=== PATIENT | female | born 1955 | race Caucasian/White ===

== ENCOUNTER 2017-03-20 18:11 | Emergency (ER) | payer MEDICAID, OTHER ==
[~2017-03-20] VITALS: Ht 154.9 cm; Wt 66.0 kg
[~2017-03-20 18:11] MED LIST: ALBU0.08 NEB; ALBUAER3 INH; CYCL1TAB29 PO; HYDR-3535 PO; METF500T PO; PROP60TA PO
[2017-03-20 18:21] VITALS: BP 165/74; PULSE 83; RESP 16; TEMP 98.2; O2SAT 97
[2017-03-20 18:24] VITALS: BP 165/74; PULSE 84; RESP 16; O2SAT 97
[2017-03-20] MEDS ORDERED: SODIUM CHLOR 0.9% 1000 ML INJ 1,000 ML IV SCH (18:24)
[2017-03-20] MEDS ORDERED: SODIUM CHLORIDE 0.9% FLUSH 10 ML FLUSH IV FLUSH PRN (18:30)
[2017-03-20] MEDS ORDERED: ONDANSETRON HCL 4 MG/2 ML VIAL IVP ONE (18:30)
[2017-03-20 18:43] LABS: AUTOMATED NEUTROPHIL # 2.5 TH/MM3 (1.8-7.7); BASOPHIL % 0.9 % (0.0-2.0); EOSINOPHIL # 0.1 TH/MM3 (0-0.4); EOSINOPHIL % 1.2 % (0.0-4.0); HEMATOCRIT 36.8 % (35.0-46.0); HEMO FLAGS DIFF FINAL; LYMPH % 40.1 % (9.0-44.0); MEAN CELL VOLUME 89.1 FL (80.0-100.0); MEAN CORPUSCULAR HEMOGLOBIN 28.2 PG (27.0-34.0); MEAN CORPUSCULAR HGB CONC 31.6 % (32.0-36.0); MONO % 8.8 % (0.0-8.0); PLATELET COUNT 306 TH/MM3 (150-450); RED BLOOD COUNT 4.13 MIL/MM3 (4.00-5.30); RED CELL DISTRIBUTION WIDTH 14.7 % (11.6-17.2); WHITE BLOOD COUNT 5.1 TH/MM3 (4.0-11.0)
--- NOTE | 2017-03-20 18:46 | PD ---
HPI Chief Complaint: Fall Time Seen by Provider: 18:38 Travel History International Travel<30 days: No Contact w/Intl Traveler<30days: No Traveled to known affect area: No History of Present Illness HPI 61 YO F with PMH of HTN, chronic pain presents to the ED via EMS for evaluation of left hip pain and left eye pain after mechanical fall at home just before arrival. The patient states that she lost her balance and stuck her face on the doorjamb before falling onto the left hip. She denies LOC. She has been ambulatory since the injury. Complains of chronic back pain, chronic left shoulder pain, no worse today. She takes Lortab daily, last dose "this morning. " States last tetanus immunization was "a few years ago." Denies blood thinners. PFSH Past Medical History Arthritis: Yes Asthma: No Autoimmune Disease: No Anxiety: Yes Depression: No Heart Rhythm Problems: No Cancer: No Cardiovascular Problems: No High Cholesterol: No Chest Pain: No Congestive Heart Failure: No COPD: Yes Diabetes: Yes Patient Takes Glucophage: Yes Diminished Hearing: No Endocrine: Yes Gastrointestinal Disorders: No Genitourinary: No Headaches: Yes Hepatitis: No Hiatal Hernia: No Hypertension: Yes Immune Disorder: No Kidney Stones: No Musculoskeletal: Yes (ARTHRITIS) Neurologic: Yes (MIGRAINES) Psychiatric: Yes (ANXIETY) Reproductive: No Respiratory: Yes (COPD) Migraines: Yes Myocardial Infarction: No Renal Failure: No Sickle Cell Disease: No Sleep Apnea: No Thyroid Disease: No Ulcer: No Influenza Vaccination: Yes ?: Not Menopausal: Yes : 3 Para: 2 Miscarriage: 5 Tubal Ligation: Yes Past Surgical History Abdominal Surgery: No AICD: No Appendectomy: No Body Medical Devices: SCREW RIGHT KNEE Cardiac Surgery: No Cholecystectomy: No Genitourinary Surgery: No Gynecologic Surgery: Yes (TUBAL LIGATION) Insulin Pump: No Joint Replacement: Yes (LEFT KNEE, RIGHT KNEE) Oral Surgery: Yes (NASAL FX SX X 2; SINSUS SX, T & A) Pacemaker: No Tonsillectomy: Yes Other Surgery: Yes Social History Alcohol Use: No Tobacco Use: No Substance Use: No Allergies-Medications (Allergen,Severity, Reaction): Coded Allergies: Aspirin (Verified Allergy, Severe, VOMITING, 03/20/17) Reported Meds & Prescriptions Reported Meds & Active Scripts Active Tramadol (Tramadol HCl) 50 Mg Tab 50 Mg PO Q8H PRN Reported Albuterol Neb (Albuterol Sulfate) 2.5 Mg/3 Ml Neb 2.5 Mg NEB Q4HR NEB While awake Proair Hfa 8.5 GM Inh (Albuterol Sulfate) 90 Mcg/Act Aer 2 Puff INH Q4-6H PRN 108 mcg/actuation Metformin (Metformin HCl) 500 Mg Tab 500 Mg PO BIDPC With meals Flexeril (Cyclobenzaprine HCl) 10 Mg Tab 10 Mg PO TID Lortab (Hydrocodone-Acetaminophen) 10-325 Mg Tab 1 Tab PO Q4H PRN Propranolol (Propranolol HCl) 60 Mg Tab 30 Mg PO Q12HR Review of Systems Except as stated in HPI: all other systems reviewed are Neg Physical Exam Narrative GENERAL: Well-nourished, well-developed white female, sitting upright on a stretcher in no acute distress. SKIN: Warm and dry. There is edema and superficial abrasion over the left eye and eyebrow. Thorough evaluation reveals no edema, ecchymosis, abrasion, or laceration of the skin. HEAD: Normocephalic. Atraumatic. No raccoon eyes or pereira sign. No tenderness to palpation of the skull. No bony step-offs. No malocclusion of the teeth. EYES: No scleral icterus. No injection or drainage. PERRLA. EOMI. ENT: Pearly garrett tympanic membrane is bilaterally. Nasal mucosa is moist. Oropharynx without erythema, edema or exudate. NECK: Supple, trachea midline. No midline tenderness to palpation. Patient retains full, active, painless range of motion of the neck. CARDIOVASCULAR: Regular rate and rhythm without murmurs, gallops, or rubs. 2+ DP and radial pulses bilaterally. RESPIRATORY: Breath sounds clear and equal bilaterally. No accessory muscle use. GASTROINTESTINAL: Abdomen soft, non-tender, nondistended. + Bowel sounds MUSCULOSKELETAL: No cyanosis, or edema. There is a large ecchymosis over the lateral aspect of the left hip. Patient is able to flex the hip. Leg length is equal. No internal rotation of the left leg. Limited range of motion of the bilateral shoulders which patient states is chronic. No tenderness to palpation or limitations to range of motion of the remaining joints of the upper and lower extremities bilaterally. NEUROLOGICAL: Awake and alert. Cranial nerves II through XII intact. Motor and sensory grossly within normal limits. 5/5 muscle strength in all muscle groups. Mildly slurred speech, patients baseline. No pronator drift. BACK: Nontender without obvious deformity. No CVA tenderness. No midline tenderness. Data Data Last Documented VS Vital Signs Date Time Temp Pulse Resp B/P Pulse Ox O2 Delivery O2 Flow Rate FiO2 03/20/17 19:20 83 18 162/70 97 Room Air 03/20/17 18:[address] Brain W/O Iv Contrast(Rout) (03/20/17 18:24) Ct Cerv Spine W/O Contrast (03/20/17 18:24) Ct Facial Bones W/O Iv Cont (03/20/17 18:24) Complete Blood Count With Diff (03/20/17 18:24) Comprehensive Metabolic Panel (03/20/17 18:24) Prothrombin Time / Inr (Pt) (03/20/17 18:24) Act Partial Throm Time (Ptt) (03/20/17 18:24) Urinalysis - C+S If Indicated (03/20/17 18:24) Iv Access Insert/Monitor (03/20/17 18:24) Ecg Monitoring (03/20/17 18:24) Oximetry (03/20/17 18:24) NPO (03/20/17 18:24) Ondansetron Inj (Zofran Inj) (03/20/17 18:30) Sodium Chlor 0.9% 1000 Ml Inj (Ns 1000 M (03/20/17 18:24) Sodium Chloride 0.9% Flush (Ns Flush) (03/20/17 18:30) Alcohol (Ethanol) (03/20/17 18:24) Ct Hip W/O Contrast (03/20/17 ) Hydromorphone Pf Inj (Dilaudid Pf Inj) (03/20/17 20:00) Labs Laboratory Tests Test 03/20/17 18:32 White Blood Count 5.1 TH/MM3 Red Blood Count 4.13 MIL/MM3 Hemoglobin 11.6 GM/DL Hematocrit 36.8 % Mean Corpuscular Volume 89.1 FL Mean Corpuscular Hemoglobin 28.2 PG Mean Corpuscular Hemoglobin 31.6 % Concent Red Cell Distribution Width 14.7 % Platelet Count 306 TH/MM3 Mean Platelet Volume 6.7 FL Neutrophils (%) (Auto) 49.0 % Lymphocytes (%) (Auto) 40.1 % Monocytes (%) (Auto) 8.8 % Eosinophils (%) (Auto) 1.2 % Basophils (%) (Auto) 0.9 % Neutrophils # (Auto) 2.5 TH/MM3 Lymphocytes # (Auto) 2.0 TH/MM3 Monocytes # (Auto) 0.4 TH/MM3 Eosinophils # (Auto) 0.1 TH/MM3 Basophils # (Auto) 0.0 TH/MM3 CBC Comment DIFF FINAL Differential Comment Prothrombin Time 10.0 SEC Prothromb Time International 0.9 RATIO Ratio Activated Partial 28.2 SEC Thromboplast Time Sodium Level 139 MEQ/L Potassium Level 4.0 MEQ/L Chloride Level 105 MEQ/L Carbon Dioxide Level 28.6 MEQ/L Anion Gap 5 MEQ/L Blood Urea Nitrogen 9 MG/DL Creatinine 0.61 MG/DL Estimat Glomerular Filtration 100 ML/MIN Rate Random Glucose 145 MG/DL Calcium Level 8.7 MG/DL Total Bilirubin 0.3 MG/DL Aspartate Amino Transf 26 U/L (AST/SGOT) Alanine Aminotransferase 29 U/L (ALT/SGPT) Alkaline Phosphatase 81 U/L Total Protein 7.2 GM/DL Albumin 3.7 GM/DL Ethyl Alcohol Level LESS THAN 3 MG/DL MDM Medical Decision Making Medical Screen Exam Complete: Yes Emergency Medical Condition: Yes Differential Diagnosis abrasion versus contusion versus facial fracture versus skull fracture versus hip fracture versus ICH versus other Narrative Course 61 YO F with PMH of HTN, chronic pain presents to the ED via EMS for evaluation of left hip pain and left eye pain after mechanical fall at home just before arrival. The patient states that she lost her balance and stuck her face on the doorjamb before falling onto the left hip. She denies LOC. She has been ambulatory since the injury. Complains of chronic back pain, chronic left shoulder pain, no worse today. She takes Lortab daily, last dose "this morning. " States last tetanus immunization was "a few years ago." Denies blood thinners. Vitals reviewed. Positive physical exam findings include edema, ecchymosis and abrasion of the left eyebrow. ++ Tenderness to palpation and large hematoma at the lateral aspect of the left hip. CBC: WBC 5.1, hemoglobin 11.6 CMP: Unremarkable Coags: INR 0.9 ETOH: Less than 3 CT cervical spine: Degenerative changes no acute fracture or subluxation or compression. CT brain: No acute findings in the brain. Maxillofacial CT: Left orbital hematoma and preceptor swelling without fracture. CT left hip: Greater than 11 cm hematoma in the subcutaneous tissues lateral to the proximal left femur. No fracture noted. Patient states she's missed the last 2 doses of pain medication. She was administered 0.5 mg Dilaudid, 4 mg Zofran, 1 L normal saline IV. I discussed the results of the workup with the patient. I provided a short course of tramadol. She is instructed to rest, ice, elevate the extremity, return to normal, gentle activity as tolerated, follow up with her primary care this week. She indicated understanding of the instructions and is agreeable to the care plan. She is table and discharged home. Diagnosis Primary Impression: Traumatic hematoma of left hip Qualified Code: S70.02XA - Traumatic hematoma of left hip, initial encounter Additional Impressions: Contusion of left hip, initial encounter Facial abrasion Qualified Code: S00.81XA - Facial abrasion, initial encounter Contusion of left eyebrow Qualified Code: S00.12XA - Contusion of left eyebrow, initial encounter Referrals: Primary Care Physician Patient Instructions: Abrasion (ED), Contusion in Adults (ED), Facial Contusion (ED), General Instructions Additional Instructions: Rest, hydrate. Return to normal, gentle activities as tolerated. Ice packs, applied 10-15 mins a few times a day may help to relieve pain and swelling. Take pain medications as prescribed. DO NOT DRIVE WHILE TAKING PAIN MEDICATIONS. Follow up with your primary care provider this week. Return to the ED for any urgent or emergent medical condition. Med/Other Pt SpecificInfo: Prescription(s) given Scripts Tramadol 50 Mg Tab50 Mg PO Q8H PRN (PAIN) #6 TAB Ref 0 Prov:Drea Montanez MD 03/20/17 Disposition: 01 DISCHARGE HOME Condition: Stable Robyn Musa Mar 20, 2017 18:46
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
[2017-03-20 18:52] LABS: APTT (PATIENT) 28.2 SEC (24.3-30.1); INTERNATIONAL NORMALIZED RATIO 0.9 RATIO
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
[2017-03-20 19:00] LABS: ANION GAP 5 MEQ/L (5-15); AST (GOT) 26 U/L (15-37); BICARBONATE 28.6 MEQ/L (21.0-32.0); BLOOD UREA NITROGEN 9 MG/DL (7-18); CHLORIDE 105 MEQ/L (98-107); GLOMERULAR FILTRATION RATE 100 ML/MIN (>89); SODIUM (NA) 139 MEQ/L (136-145)
[2017-03-20 19:01] LABS: ALT (GPT) 29 U/L (10-53)
[2017-03-20 19:03] LABS: ALKALINE PHOSPHATASE 81 U/L (45-117); TOTAL BILIRUBIN ADULT 0.3 MG/DL (0.2-1.0)
--- NOTE | 2017-03-20 19:04 | RADRPT ---
EXAM DATE/TIME: 03/20/2017 18:38 [facility] COMPARISON: No previous studies available for comparison. INDICATIONS : Fall today, right sided supraorbital hematoma. RADIATION DOSE: 21.96 CTDIvol (mGy) MEDICAL HISTORY : Chronic obstructive pulmonary disease. nasal fracture SURGICAL HISTORY : Tubal ligation. Tonsillectomy.sinus surgery ENCOUNTER: Initial ACUITY: 1 day PAIN SCORE: 7/10 LOCATION: Right eye TECHNIQUE: Volumetric scanning of the facial bones was performed. Using automated exposure control and adjustme nt of the mA and/or kV according to patient size, radiation dose was kept as low as reasonably achiev able to obtain optimal diagnostic quality images. FINDINGS: There is a left superomedial orbital hematoma measuring 2.1 x 1.5 cm and surrounding soft tissue swel ling. The soft tissue swelling extends to the medial aspect of the orbit, but remains pre-septal. T he retroconal structures are normal in appearance bilaterally. The bony orbit is intact. No fractur es seen in the nasal bone, zygomatic arches, maxilla or mandible. No radiopaque foreign bodies. CONCLUSION: Left superomedial orbital hematoma without evidence of fracture or radiopaque foreign body. Soft tis vidal swelling is preseptal. Tyler Whittington MD on March 20, 2017 at 19:00 Board Certified Radiologist. This report was verified electronically.
--- NOTE | 2017-03-20 19:07 | RADRPT ---
EXAM DATE/TIME: 03/20/2017 18:45 [facility] COMPARISON: No previous studies available for comparison. INDICATIONS : Fall today, hematoma to left hip. RADIATION DOSE: 11.72 CTDIvol (mGy) MEDICAL HISTORY : Chronic obstructive pulmonary disease. diabetes SURGICAL HISTORY : Tubal ligation. bilateral knee replacements. ENCOUNTER: Initial ACUITY: 1 day PAIN SCALE: 8/10 LOCATION: Left hip TECHNIQUE: Volumetric scanning of the hip was performed. Using automated exposure control and adjustment of the mA and/or kV according to patient size, radiation dose was kept as low as reasonably achievable to o btain optimal diagnostic quality images. FINDINGS: There is a large hematoma in the subcutaneous soft tissues lateral to the proximal left femur which m easures 11.6 x 6.9 cm in transverse dimension and 11 cm in superior/inferior dimension. The hematoma does extend posterior and causes indentation upon the lateral margin of the gluteal muscles. No int ramuscular signal hematoma. The osseous structures about the left hip are intact without evidence of fracture. No radiopaque foreign bodies seen. Urinary bladder margins are smooth. No free fluid in the pelvis. Inguinal region is unremarkable.. CONCLUSION: Large (greater than 11 cm) hematoma in the subcutaneous soft tissues lateral to the proximal left fem ur. No evidence of fracture. Tyler Whittington MD on March 20, 2017 at 19:02 Board Certified Radiologist. This report was verified electronically.
[2017-03-20 19:20] VITALS: BP 162/70; PULSE 83; RESP 18; O2SAT 97
[2017-03-20 19:48] VITALS: BP 109/69; PULSE 81; RESP 22; O2SAT 97
[2017-03-20] MEDS ORDERED: HYDROmorphone HCL PF 1 MG/ML VIAL IV PUSH ONE (20:00)
[2017-03-20] MEDS ORDERED: MORPHINE SULFATE 4 MG/ML INJ IV PUSH ONE (20:00)
[2017-03-20] MEDS ORDERED: TRAM50TA PO (20:28)
== END 2017-03-20 21:31 | disposition home or self-care (01) ==
LOC: NEPE 18:11
DX: S70.02XA Contusion of left hip, initial encounter (principal); S00.81XA Abrasion of other part of head, initial encounter; S00.12XA Contusion of left eyelid and periocular area, initial encounter; E11.9 Type 2 diabetes mellitus without complications; I10 Essential (primary) hypertension; W18.39XA Other fall on same level, initial encounter; Z79.84 Long term (current) use of oral hypoglycemic drugs; Z87.39 Personal history of other diseases of the musculoskeletal system and connective tissue; Z86.59 Personal history of other mental and behavioral disorders; Z87.09 Personal history of other diseases of the respiratory system; Z86.69 Personal history of other diseases of the nervous system and sense organs
CPT/HCPCS: 70450; 70486; 72125; 73700; 80053; 80307; 85025; 85610; 85730; 96374; 96375; 99285; J1170; J2405; J7030

== ENCOUNTER 2017-06-28 15:32 | Emergency (ER) | payer OTHER ==
[~2017-06-28] VITALS: Ht 154.9 cm; Wt 67.2 kg
[~2017-06-28 15:32] MED LIST changes: +TRAM50TA PO
[2017-06-28 15:41] VITALS: BP 150/70; PULSE 84; RESP 18; TEMP 98; O2SAT 95
[2017-06-28] MEDS ORDERED: [UNRECOGNIZED DRUG - REMARK] PO (16:00)
[2017-06-28] MEDS ORDERED: ENAL2.5T PO (16:00)
[2017-06-28] MEDS ORDERED: POTA10CA PO (16:00)
[2017-06-28] MEDS ORDERED: OXYC-395 PO (16:00)
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
== END 2017-06-28 17:28 | disposition home or self-care (01) ==
LOC: PHEFT 15:32
DX: S80.12XA Contusion of left lower leg, initial encounter (principal); V03.99XA Pedestrian with other conveyance injured in collision with car, pick-up truck or van, unspecified whether traffic or nontraffic accident, initial encounter; J44.9 Chronic obstructive pulmonary disease, unspecified; E11.9 Type 2 diabetes mellitus without complications; I10 Essential (primary) hypertension
CPT/HCPCS: 73590; 99283

== ENCOUNTER 2017-10-23 11:47 | Emergency (ER) | payer OTHER ==
[~2017-10-23] VITALS: Ht 154.9 cm; Wt 69.0 kg
[~2017-10-23 11:47] MED LIST changes: -ALBU0.08 NEB; -ALBUAER3 INH; +CYCL10TA PO; -CYCL1TAB29 PO; +ENAL2.5T PO; -HYDR-3535 PO; +OXYC-395 PO; +POTA10CA PO; -TRAM50TA PO; +[UNRECOGNIZED DRUG - REMARK] PO
[2017-10-23 11:59] VITALS: BP 163/72; PULSE 70; RESP 18; TEMP 98; O2SAT 98
--- NOTE | 2017-10-23 13:18 | PD ---
HPI Chief Complaint: Pain: Acute or Chronic Time Seen by Provider: 12:55 Travel History International Travel<30 days: No Contact w/Intl Traveler<30days: No Traveled to known affect area: No History of Present Illness HPI 62-year-old female with PMH chronic back pain and right-sided sciatica presents to the ED for evaluation of exacerbation of back pain. Patient states that the pain got worse a few months ago when she had an injection in the back. Despite this worsening pain she had a second injection by Dr. Clark. She endorses pain in the back that radiates into the hip, left groin. She endorses numbness and tingling from the knee down in the same extremity. She denies weakness or giving way, saddle anesthesia, fecal or urinary incontinence. She treated at home with 10 mg oxycodone at around 5 AM. She denies dysuria, hematuria, urinary urgency. PFSH Past Medical History Arthritis: Yes Asthma: No Autoimmune Disease: No Anxiety: Yes Depression: No Heart Rhythm Problems: No Cancer: No Cardiovascular Problems: Yes High Cholesterol: No Chest Pain: No Congestive Heart Failure: No COPD: Yes Diabetes: Yes Patient Takes Glucophage: Yes Diminished Hearing: No Endocrine: Yes Gastrointestinal Disorders: No Genitourinary: No Headaches: Yes Hepatitis: No Hiatal Hernia: No Hypertension: Yes Immune Disorder: No Kidney Stones: No Medical other: No Musculoskeletal: Yes (ARTHRITIS) Neurologic: Yes (MIGRAINES) Psychiatric: Yes (ANXIETY) Reproductive: No Respiratory: Yes (COPD) Immunizations Current: Yes Migraines: Yes Myocardial Infarction: No Renal Failure: No Sickle Cell Disease: No Sleep Apnea: No Thyroid Disease: No Ulcer: No Influenza Vaccination: Yes ?: Not Menopausal: Yes : 3 Para: 2 Miscarriage: 5 Tubal Ligation: Yes Past Surgical History Abdominal Surgery: No AICD: No Appendectomy: No Body Medical Devices: SCREW RIGHT KNEE Cardiac Surgery: No Cholecystectomy: No Genitourinary Surgery: No Gynecologic Surgery: Yes (TUBAL LIGATION) Insulin Pump: No Joint Replacement: Yes (LEFT KNEE, RIGHT KNEE) Oral Surgery: Yes (NASAL FX SX X 2; SINSUS SX, T & A) Pacemaker: No Tonsillectomy: Yes Other Surgery: Yes Social History Alcohol Use: No Tobacco Use: No Substance Use: No Allergies-Medications (Allergen,Severity, Reaction): Coded Allergies: aspirin (Unverified Allergy, Severe, VOMITING, 10/23/17) Reported Meds & Prescriptions Reported Meds & Active Scripts Active Robaxin (Methocarbamol) 500 Mg Tab 1,000 Mg PO TID Reported Enalapril (Enalapril Maleate) 2.5 Mg Tab 2.5 Mg PO DAILY Potassium Chloride ER (Potassium Chloride) 10 Meq Cap 10 Meq PO DAILY Oxycodone (Oxycodone HCl) 10 Mg Tab 10 Mg PO Q8H PRN Metformin (Metformin HCl) 500 Mg Tab 500 Mg PO BIDPC With meals Flexeril (Cyclobenzaprine HCl) 10 Mg Tab 10 Mg PO TID Propranolol (Propranolol HCl) 60 Mg Tab 30 Mg PO Q12HR Review of Systems Except as stated in HPI: all other systems reviewed are Neg Physical Exam Narrative GENERAL: Chronically ill-appearing white female in no acute distress. SKIN: Focused skin assessment warm/dry. HEAD: Normocephalic. EYES: No scleral icterus. No injection or drainage. NECK: Supple, trachea midline. No JVD or lymphadenopathy. CARDIOVASCULAR: Regular rate and rhythm without murmurs, gallops, or rubs. RESPIRATORY: Breath sounds clear and equal bilaterally. No accessory muscle use. GASTROINTESTINAL: Abdomen soft, non-tender, nondistended. Active bowel sounds. MUSCULOSKELETAL: No cyanosis, or edema. Focused right lower extremity exam: 2+ radial pulse. Tender to palpation of the anterior lateral aspect of the hip as well as the groin. 5/5 strength of plantarflexion, dorsiflexion, knee and hip flexion. Knee and hip flexion elicits pain. BACK: Nontender without obvious deformity. Positive right-sided CVA tenderness. No midline tenderness. No tenderness of the sciatic notch. Straight leg raise positive on the right. Data Data Last Documented VS Vital Signs Date Time Temp Pulse Resp B/P (MAP) Pulse Ox O2 Delivery O2 Flow Rate FiO2 10/23/17 11:59 98.0 70 18 163/72 (102) 98 Orders Orders Hip, Uni(Ap&Lat) W Ap Pelvis (10/23/17 12:53) Urinalysis - C+S If Indicated (10/23/17 13:18) Ketorolac Inj (Toradol Inj) (10/23/17 13:30) Orphenadrine Inj (Norflex Inj) (10/23/17 13:30) Acetamin-Hydrocod 325-5 Mg ([place] 5-325 (10/23/17 13:30) Ed Discharge Order (10/23/17 15:32) Labs Laboratory Tests Test 10/23/17 15:00 Urine Collection Type CLEAN CATCH Urine Color YELLOW Urine Turbidity CLEAR Urine pH 5.5 Urine Specific [place] 1.030 Urine Protein NEG mg/dL Urine Glucose (UA) NEG mg/dL Urine Ketones TRACE mg/dL Urine Occult Blood NEG Urine Nitrite NEG Urine Bilirubin NEG Urine Leukocyte Esterase NEG Urine RBC 0-3 /hpf Urine WBC 0-2 /hpf Urine Squamous Epithelial Cells 0-5 /hpf Microscopic Urinalysis Comment CULT NOT INDICATED Urine Collection Time 15:00 [facility] Medical Decision Making Medical Screen Exam Complete: Yes Emergency Medical Condition: Yes Differential Diagnosis Acute on chronic back pain versus muscle spasm versus UTI versus other Narrative Course 62-year-old female with PMH chronic back pain and right-sided sciatica presents to the ED for evaluation of exacerbation of back pain. Patient states that the pain got worse a few months ago when she had an injection in the back. Despite this worsening pain she had a second injection by Dr. Clark. She endorses pain in the back that radiates into the hip, left groin. She endorses numbness and tingling from the knee down in the same extremity. She denies weakness or giving way, saddle anesthesia, fecal or urinary incontinence. She denies dysuria , hematuria, urinary urgency. She treated at home with 10 mg oxycodone at around 5 AM. Vitals reviewed. Physical exam reveals right CVA tenderness, tenderness to palpation of the anterolateral aspect of the right hip and groin. No midline tenderness to palpation of the back. No tenderness to palpation of the sciatic notch. 5/5 strength of dorsi flexion and plantar flexion bilaterally. Patient was registered IM Toradol, Norflex and by mouth Lortab. X -ray of the hip reveals no acute bony injury per radiology read. UA reveals no evidence of UTI. Discussed the results of the workup with the patient. She continues to insist that she cannot stand while she stands in front of me. She requests more pain medications. She wants to know the reason for her hip pain. I explained multiple times that this is likely worsening of her chronic symptoms that need to be evaluated by the neurologist. That her symptoms were worsened by the series of injections that she received. She is provided with the on-call neurologist information. I ultimately prescribed a short course of muscle relaxants to take with her chronic pain medications. We discussed red flag symptoms and reasons to return to the ED. She indicated understanding of the instructions. The patient is stable and discharged home. Diagnosis Primary Impression: Acute exacerbation of chronic low back pain Additional Impression: Chronic right hip pain Referrals: Kaylan Meraz MD Pain Management Patient Instructions: Chronic Back Pain (ED), General Instructions, Sciatica ( ED) Additional Instructions: Rest, hydrate. Return to normal, gentle activities as tolerated. Take muscle relaxants as they're prescribed. These medications may make you drowsy. Follow-up with your pain management provider or the neurologist whose name is on this discharge paper. Return to the ED for worsening symptoms or any urgent or emergent medical condition. Scripts Methocarbamol (Robaxin) 500 Mg Tab 1000 MG PO TID for Muscle Spasm, #15 TAB 0 Refills Prov: Mila Pleitez MD 10/23/17 Disposition: 01 DISCHARGE HOME Condition: Stable Robyn Musa Oct 23, 2017 13:18
[2017-10-23] MEDS ORDERED: ORPHENADRINE INJ 60 MG/2 ML AMP IM ONE (13:30)
[2017-10-23] MEDS ORDERED: ACETAMINOPHEN/HYDROcodone 325 MG/5 MG TAB PO ONE (13:30)
[2017-10-23] MEDS ORDERED: KETOROLAC TROMETHAMINE 30 MG/ML (IVP) VIAL IV PUSH ONE (13:30)
--- NOTE | 2017-10-23 14:36 | RADRPT ---
EXAM DATE/TIME: 10/23/2017 13:58 [facility] COMPARISON: FEMUR RIGHT (AP & LAT/2VWS), September 21, 2016, 22:53. HIP RIGHT (AP&LAT 2/3VWS) W AP PELVIS, [facility] 2015, 22:46. INDICATIONS : Right hip area pain for 1 month, no known injury MEDICAL HISTORY : SURGICAL HISTORY : Total knee replacement, left. Total knee replacement, right. ENCOUNTER: Initial ACUITY: 1 month PAIN SCORE: 10/10 LOCATION: Right hip FINDINGS: Examination of the right hip was performed with AP Pelvis. The primary and secondary trabecular dolores paula of the femoral neck is intact. The hip joint is of normal width without significant sclerosis or bony hypertrophy. The acetabulum is grossly intact. There is mild osteopenia. CONCLUSION: Stable appearance with mild osteopenia and underlying bony abnormality. Isrrael Manzo MD on October 23, 2017 at 14:32 Board Certified Radiologist. This report was verified electronically.
[2017-10-23 15:11] LABS: BILIRUBIN, URINE NEG (NEG); BLOOD, URINE NEG (NEG); GLUCOSE,URINE NEG (NEG); KETONE, URINE TRACE mg/dL (NEG); NITRITE,URINE NEG (NEG); PH, URINE 5.5 (5.0-8.5); URINE LEUKOCYTE ESTERASE NEG (NEG)
[2017-10-23 15:15] LABS: URINE COLOR YELLOW (YELLW/STRAW)
[2017-10-23 15:17] LABS: RBC, URINE 0-3 /hpf (0-3); SQUAMOUS EPITHELIAL CELL URINE 0-5 /hpf (0-5); WBC, URINE 0-2 /hpf (0-5)
[2017-10-23] MEDS ORDERED: ROBA500T PO (15:32)
== END 2017-10-23 15:47 | disposition home or self-care (01) ==
LOC: PHEFT 11:47
DX: M54.41 Lumbago with sciatica, right side (principal); G89.29 Other chronic pain; M25.551 Pain in right hip; M19.90 Unspecified osteoarthritis, unspecified site; E11.9 Type 2 diabetes mellitus without complications; J44.9 Chronic obstructive pulmonary disease, unspecified; I10 Essential (primary) hypertension
CPT/HCPCS: 73502; 81001; 96372; 96374; 99284; J1885; J2360

== ENCOUNTER 2017-10-23 21:42 | Observation (INO) | payer OTHER ==
[~2017-10-23] VITALS: Ht 154.9 cm; Wt 70.4 kg
[~2017-10-23 21:42] MED LIST changes: +ROBA500T PO
[2017-10-23 21:51] VITALS: BP 131/74; PULSE 75; RESP 20; TEMP 97.9; O2SAT 95
[2017-10-23] MEDS ORDERED: SODIUM CHLOR 0.9% 1000 ML INJ 1,000 ML IV SCH (23:30)
[2017-10-23] MEDS ORDERED: HYDROmorphone HCL PF 2 MG/ML VIAL IV PUSH ONE (23:30)
[2017-10-23] MEDS ORDERED: ONDANSETRON HCL 4 MG/2 ML VIAL IV ONE (23:30)
--- NOTE | 2017-10-23 23:33 | PD ---
HPI Chief Complaint: Musculoskeletal Complaint Time Seen by Provider: 23:21 Travel History International Travel<30 days: No Contact w/Intl Traveler<30days: No Traveled to known affect area: No History of Present Illness HPI The patient is a 62-year-old female with a history of chronic low back pain who complains of pain on the right lower lumbar area with radiation of pain to the right ankle. This is been going on for week. The patient states she cannot walk and she states she needs to be admitted. She was seen earlier today, only a few hours ago, and she returns stating she needs to be admitted. The patient does live alone. She is currently on oxycodone 10 mg every 8 hours given to her by her pain management doctor, Dr. Clark. She states she is also on Flexeril but states done of her medicines are working. The patient states she has claustrophobia and cannot do a lay down MRI. She states she can do a CT scan. PFSH Past Medical History Arthritis: Yes Asthma: No Autoimmune Disease: No Anxiety: Yes Depression: No Heart Rhythm Problems: No Cancer: No Cardiovascular Problems: Yes High Cholesterol: No Chest Pain: No Congestive Heart Failure: No COPD: Yes Diabetes: Yes Patient Takes Glucophage: Yes (last taken today 6pm) Diminished Hearing: No Endocrine: Yes Gastrointestinal Disorders: No Genitourinary: No Headaches: Yes Hepatitis: No Hiatal Hernia: No Hypertension: Yes Immune Disorder: No Kidney Stones: No Musculoskeletal: Yes (ARTHRITIS) Neurologic: Yes (MIGRAINES) Psychiatric: Yes (ANXIETY) Reproductive: No Respiratory: Yes (COPD) Immunizations Current: Yes Migraines: Yes Myocardial Infarction: No Renal Failure: No Sickle Cell Disease: No Sleep Apnea: No Thyroid Disease: No Ulcer: No Tetanus Vaccination: Never Vaccinated ?: Not Menopausal: Yes : 3 Para: 2 Miscarriage: 5 Tubal Ligation: Yes Past Surgical History Abdominal Surgery: No AICD: No Appendectomy: No Body Medical Devices: SCREW RIGHT KNEE Cardiac Surgery: No Cholecystectomy: No Genitourinary Surgery: No Gynecologic Surgery: Yes (TUBAL LIGATION) Insulin Pump: No Joint Replacement: Yes (LEFT KNEE, RIGHT KNEE) Oral Surgery: Yes (NASAL FX SX X 2; SINSUS SX, T & A) Pacemaker: No Tonsillectomy: Yes Other Surgery: Yes Social History Alcohol Use: No Tobacco Use: No Substance Use: No Allergies-Medications (Allergen,Severity, Reaction): Coded Allergies: aspirin (Unverified Allergy, Severe, VOMITING, 10/23/17) Reported Meds & Prescriptions Reported Meds & Active Scripts Active Robaxin (Methocarbamol) 500 Mg Tab 1,000 Mg PO TID Reported Enalapril (Enalapril Maleate) 2.5 Mg Tab 2.5 Mg PO DAILY Potassium Chloride ER (Potassium Chloride) 10 Meq Cap 10 Meq PO DAILY Oxycodone (Oxycodone HCl) 10 Mg Tab 10 Mg PO Q8H PRN Metformin (Metformin HCl) 500 Mg Tab 500 Mg PO BIDPC With meals Flexeril (Cyclobenzaprine HCl) 10 Mg Tab 10 Mg PO TID Propranolol (Propranolol HCl) 60 Mg Tab 30 Mg PO Q12HR Review of Systems Except as stated in HPI: all other systems reviewed are Neg Physical Exam Narrative GENERAL: The patient is alert, oriented 3 in moderate apparent distress with her low back pain. Her vital signs are normal. SKIN: Focused skin assessment warm/dry. HEAD: Atraumatic. Normocephalic. EYES: Pupils equal and round. No scleral icterus. No injection or drainage. ENT: No nasal bleeding or discharge. Mucous membranes pink and moist. NECK: Trachea midline. No JVD. CARDIOVASCULAR: Regular rate and rhythm. No murmur appreciated. RESPIRATORY: No accessory muscle use. Clear to auscultation. Breath sounds equal bilaterally. GASTROINTESTINAL: Abdomen soft, non-tender, nondistended. Hepatic and splenic margins not palpable. MUSCULOSKELETAL: No obvious deformities. No clubbing. No cyanosis. No edema. Reflexes are 0 bilaterally both patella and +2 bilaterally both Achilles. Pinprick is slightly decreased on the right lower leg. I can completely reproduce the patient's pain by pressing to the right of the lumbar spine around the L5-S1 area. NEUROLOGICAL: Awake and alert. No obvious cranial nerve deficits. Motor grossly within normal limits. Normal speech. PSYCHIATRIC: Appropriate mood and affect; insight and judgment normal. Data Data Last Documented VS Vital Signs Date Time Temp Pulse Resp B/P (MAP) Pulse Ox O2 Delivery O2 Flow Rate FiO2 10/23/17 21:51 97.9 75 20 131/74 (93) 95 Orders Orders Ondansetron Inj (Zofran Inj) (10/23/17 23:30) Hydromorphone Pf Inj (Dilaudid Pf Inj) (10/23/17 23:30) Sodium Chlor 0.9% 1000 Ml Inj (Ns 1000 M (10/23/17 23:30) Ct Lumb Spine W/O Contrast (10/23/17 23:33) Bedside Glucose BHUMI.CSUGAR (10/23/17 23:43) Blood Glucose Goal (Criteria) (10/23/17 23:43) Hypoglycemia 70 Mg/Dl Or < (10/23/17 23:43) Notify Dr: Other (10/23/17 23:43) Dextrose 50% In [place] (Vial) Inj (D50w (Vi (10/23/17 23:45) Glucagon Inj (Glucagon Inj) (10/23/17 23:45) Insulin Aspart Supplemtl Scale (Novolog (10/24/17 08:00) Place In Observation (10/23/17 ) Vital Signs (Adult) Q4H (10/23/17 23:43) Activity Oob With Assistance (10/23/17 23:43) Diet 1800 Ada Cons Carb (10/24/17 Breakfast) Sodium Chloride 0.9% Flush (Ns Flush) (10/23/17 23:45) Sodium Chloride 0.9% Flush (Ns Flush) (10/24/17 09:00) Ondansetron Inj (Zofran Inj) (10/23/17 23:45) Comprehensive Metabolic Panel (10/24/17 06:00) Complete Blood Count With Diff (10/24/17 06:00) Pt Request For Service (10/23/17 23:43) Case Management Consult (10/23/17 23:43) Heparin Inj (Heparin Inj) (10/24/17 09:00) Acetaminophen (Tylenol) (10/23/17 23:45) Morphine Inj (Morphine Inj) (10/23/17 23:45) Docusate Sodium-Senna (Melania-Colace) (10/24/17 09:00) Magnesium Hydroxide Liq (Milk Of Magnesi (10/23/17 23:45) Sennosides (Senokot) (10/23/17 23:45) Bisacodyl Supp (Dulcolax Supp) (10/23/17 23:45) Lactulose Liq (Lactulose Liq) (10/23/17 23:45) Enalapril (Vasotec) (10/24/17 09:00) Metformin (Glucophage) (10/24/17 09:00) Methocarbamol (Robaxin) (10/24/17 09:00) Oxycodone (Roxicodone) (10/23/17 23:45) Oxycodone (Roxicodone) (10/23/17 23:45) Propranolol (Inderal) (10/24/17 09:00) Admit Order (Ed Use Only) (10/24/17 00:08) MDM Medical Decision Making Medical Screen Exam Complete: Yes Emergency Medical Condition: Yes Medical Record Reviewed: Yes Differential Diagnosis Chronic low back pain, sciatic nerve pain, herniated nucleus pulposus Narrative Course I tried to get the patient walk but she could not walk and had difficulty even standing. She says she cannot make it at home. This is her second visit today and she says she'll come right back up she is discharged. Plan: The patient will be 23 hour observation for intractable back pain and inability to ambulate. Diagnosis Primary Impression: Intractable low back pain Admitting Information Admitting Physician Requests: Observation Marcos Burrell MD Oct 23, 2017 23:33
[2017-10-23] MEDS ORDERED: ONDANSETRON HCL 4 MG/2 ML VIAL IVP PRN (23:45)
[2017-10-23] MEDS ORDERED: LACTULOSE SYRUP 20 GM/30 ML CUP PO PRN (23:45)
[2017-10-23] MEDS ORDERED: MAGNESIUM HYDROXIDE SUSP 30 ML CUP PO PRN (23:45)
[2017-10-23] MEDS ORDERED: GLUCAGON 1 MG/ML VIAL OTHER PRN (23:45)
[2017-10-23] MEDS ORDERED: BISACODYL 10 MG SUPP RECTAL PRN (23:45)
[2017-10-23] MEDS ORDERED: SENNOSIDES 8.6 MG TAB PO PRN (23:45)
[2017-10-23] MEDS ORDERED: ACETAMINOPHEN 325 MG TAB PO PRN (23:45)
[2017-10-23] MEDS ORDERED: DEXTROSE 50% IN WATER 50 ML VIAL(D50) IV PUSH PRN (23:45)
[2017-10-23] MEDS ORDERED: SODIUM CHLORIDE 0.9% FLUSH 10 ML FLUSH IV FLUSH PRN (23:45)
[2017-10-24] VITALS (8 sets, daily range): BP systolic 121–159; BP diastolic 65–93; PULSE 60–86; RESP 16–20; TEMP 96–98.1; O2SAT 93–97
--- NOTE | 2017-10-24 00:25 | RADRPT ---
EXAM DATE/TIME: 10/23/2017 23:44 [facility] COMPARISON: No previous studies available for comparison. INDICATIONS : Right lower back pain radiating down right leg. RADIATION DOSE: 39.48 CTDIvol (mGy) MEDICAL HISTORY : Hypertension. Diabetes mellitus type 2. SURGICAL HISTORY : Tubal ligation. ENCOUNTER: Initial ACUITY: 1 week PAIN SCALE: 10/10 LOCATION: Right lower back TECHNIQUE: Volumetric scanning of the lumbar spine was performed. Multiplanar reconstructions in the sagittal, coronal and oblique axial planes were performed. Using automated exposure control and adjustment of the mA and/or kV according to patient size, radiation dose was kept as low as reasonably achievable t o obtain optimal diagnostic quality images. DICOM format image data is available electronically for review and comparison. FINDINGS: VERTEBRAE: Normal vertebral body height. ALIGNMENT: There is minimal anterior subluxation of L4 on L5 and L5 on S1. T12-L1: The thecal sac has a normal diameter. No evidence of disc bulge or protrusion. The neural foramina are patent bilaterally. L1-L2: There is minimal diffuse disc bulge without significant stenosis. The thecal sac has a normal diamete r. The neural foramina are patent bilaterally. L2-L3: There is mild diffuse disc bulge without significant stenosis. The thecal sac has a normal diameter. The neural foramina are patent bilaterally. L3-L4: The disc demonstrates mild decrease height. There is minimal bulge without significant stenosis. The thecal sac has a normal diameter. The neural foramina are patent bilaterally. L4-L5: The disc demonstrates decreased height. There is a vacuum phenomenon. Again noted is the anterior sub luxation of L4 on L5. There is a bulging disc appearance secondary to spondylolisthesis. In addition, there appears to be more focal central to right-sided disc protrusion. There is facet and ligament f lavum hypertrophy. The disc and facet changes lead to moderate to severe narrowing of the thecal sac with the thecal sac narrowed to 0.8 cm in transverse dimension 0.7 cm in AP dimension. There is narro wing of the right neural foramina. The left neural foramina is patent. L5-S1: The disc demonstrates decreased height. There is a vacuum phenomenon. There is slight bulging without significant stenosis. There is severe facet hypertrophy. The neural foramina are patent bilaterally. . CONCLUSION: 1. Moderate to severe stenosis at the L4 and L5 multiple secondary to spondylolisthesis and diffuse d isc bulge and a central to right-sided disc protrusion. There is also right neural foraminal narrowin g at this level. 2. Disc decrease height and minimal bulging at the L5-S1 level. 3. Mild bulging at the L1-L2 through L3-L4 levels without significant stenosis. Emir Christopher MD on October 24, 2017 at 0:16 Board Certified Radiologist. This report was verified electronically.
[2017-10-24] MEDS: MORPHINE SULFATE 2 MG/ML INJ IV PUSH PRN ×3 (02:50→09:58)
[2017-10-24 06:24] LABS: BASOPHIL % 0.4 % (0.0-2.0); EOSINOPHIL # 0.1 TH/MM3 (0-0.4); EOSINOPHIL % 2.1 % (0.0-4.0); HEMATOCRIT 36.9 % (35.0-46.0); LYMPH % 30.9 % (9.0-44.0); LYMPHOCYTE # 1.6 TH/MM3 (1.0-4.8); MEAN CELL VOLUME 87.5 FL (80.0-100.0); MEAN CORPUSCULAR HEMOGLOBIN 28.4 PG (27.0-34.0); MEAN CORPUSCULAR HGB CONC 32.5 % (32.0-36.0); MEAN PLATELET VOLUME 6.7 FL (7.0-11.0); MONO % 10.4 % (0.0-8.0); MONOCYTE # 0.5 TH/MM3 (0-0.9); NEUT % 56.2 % (16.0-70.0); PLATELET COUNT 300 TH/MM3 (150-450); RED BLOOD COUNT 4.21 MIL/MM3 (4.00-5.30); RED CELL DISTRIBUTION WIDTH 12.3 % (11.6-17.2); WHITE BLOOD COUNT 5.2 TH/MM3 (4.0-11.0)
[2017-10-24 06:33] LABS: CHLORIDE 104 MEQ/L (98-107); SODIUM (NA) 138 MEQ/L (136-145)
[2017-10-24 06:36] LABS: CALCIUM 8.5 MG/DL (8.5-10.1)
[2017-10-24 06:37] LABS: ALBUMIN 3.3 GM/DL (3.4-5.0); BICARBONATE 28.9 MEQ/L (21.0-32.0); BLOOD UREA NITROGEN 14 MG/DL (7-18); GLUCOSE,RANDOM 119 MG/DL (74-106)
[2017-10-24 06:40] LABS: ALT (GPT) 33 U/L (10-53); AST (GOT) 31 U/L (15-37); CREATININE 0.59 MG/DL (0.50-1.00); GLOMERULAR FILTRATION RATE 104 ML/MIN (>89)
[2017-10-24 06:41] LABS: TOTAL BILIRUBIN ADULT 0.3 MG/DL (0.2-1.0); TOTAL PROTEIN 6.7 GM/DL (6.4-8.2)
[2017-10-24 06:43] LABS: ALKALINE PHOSPHATASE 83 U/L (45-117)
[2017-10-24] MEDS: INSULIN ASPART SUPPLEMENTAL SCALE SQ SCH ×4 (07:59→20:59)
[2017-10-24] MEDS ORDERED: PROPRANOLOL PO SCH (09:00)
[2017-10-24] MEDS: SODIUM CHLORIDE 0.9% FLUSH 10 ML FLUSH IV FLUSH SCH ×2 (09:57→20:58)
[2017-10-24] MEDS: metFORMIN HCL 500 MG TAB PO SCH ×2 (09:58→18:13)
[2017-10-24] MEDS: HEPARIN SODIUM - SQ 10,000 UNITS/ML VIAL SQ SCH ×2 (09:58→20:58)
[2017-10-24] MEDS: METHOCARBAMOL 500 MG TAB PO SCH ×3 (09:59→18:13)
[2017-10-24] MEDS: DOCUSATE SODIUM 50 MG/SENNA 8.6 MG TAB PO SCH ×2 (09:59→21:00)
[2017-10-24] MEDS: PROPRANOLOL HCL 10 MG TAB PO SCH ×2 (09:59→21:00)
[2017-10-24] MEDS: ENALAPRIL MALEATE 2.5 MG TAB PO SCH (09:59)
--- NOTE | 2017-10-24 11:44 | HHI.HP ---
[facility] Service [facility] Primary Care Physician Ramiro Clark MD Admission Diagnosis intractable back pain with inability to ambulate Diagnoses: Chief Complaint: Right lower back pain radiating to the right leg Travel History International Travel<30 Days: No Contact w/Intl Traveler <30 Da: No Traveled to Known Affected Are: No History of Present Illness This is a 62-year-old female past medical history for COPD, diabetes, hypertension, and chronic lower back pain who presented with worsening of her lower back pain. Patient has a pain management physician due to her chronic lower back pain. She stated that about one month ago her lower back pain worsened described more on the right side radiating down the right side. The radiating pain sounds more like a pins and needles but her pain below her knees more for numbness. Patient then saw her pain management physician who gave her steroid injection in which she stated worsen her pain. Patient stated that she was given oxycodone which she takes chronically and also multiple muscle relaxants. Patient stated that pain has not improved and worsened over the past couple days where she can not ambulate so she went to the emergency department twice due to the symptoms. Patient denies any lower extremity weakness. She denies any fecal or urinary incontinence. At baseline patient uses a walker at home and a scooter. All other review system reviewed and negative. Past Family Social History Past Medical History COPD Type 2 diabetes Hypertension Past Surgical History Bilateral knee surgery Bilateral ankle surgery Neurosurgery Sinus surgery Reported Medications Reported Meds & Active Scripts Active Robaxin (Methocarbamol) 500 Mg Tab 1,000 Mg PO TID Reported Enalapril (Enalapril Maleate) 2.5 Mg Tab 2.5 Mg PO DAILY Potassium Chloride ER (Potassium Chloride) 10 Meq Cap 10 Meq PO DAILY Oxycodone (Oxycodone HCl) 10 Mg Tab 10 Mg PO Q8H PRN Metformin (Metformin HCl) 500 Mg Tab 500 Mg PO BIDPC With meals Flexeril (Cyclobenzaprine HCl) 10 Mg Tab 10 Mg PO TID Propranolol (Propranolol HCl) 60 Mg Tab 30 Mg PO Q12HR Allergies: Coded Allergies: aspirin (Unverified Allergy, Severe, VOMITING, 10/23/17) Active Ordered Medications Current Medications Ondansetron HCl (Zofran Inj) 4 mg ONCE ONCE IV Last administered on 10/23/17at 23:30; Start 10/23/17 at 23:30; Stop 10/23/17 at 23:31; Status DC Hydromorphone HCl (Dilaudid Pf Inj) 0.5 mg ONCE ONCE IV PUSH Last administered on 10/23/17at 23:30; Start 10/23/17 at 23:30; Stop 10/23/17 at 23:31 ; Status DC Sodium Chloride 1,000 ml @ 2,000 mls/hr Q30M IV Last administered on at 00:03; Start 10/23/17 at 23:30; Stop 10/23/17 at 23:59; Status DC Dextrose (D50w (Vial) Inj) 50 ml UNSCH PRN IV PUSH HYPOGLYCEMIA-SEE COMMENTS; Start 10/23/17 at 23:45 Glucagon (Glucagon Inj) 1 mg UNSCH PRN OTHER HYPOGLYCEMIA-SEE COMMENTS; Start 10/23/17 at 23:45 Insulin Aspart (NovoLOG SUPPLEMENTAL SCALE) 1 ACHS SLIDING SCALE SQ ; Start at 08:00 Sodium Chloride (NS Flush) 2 ml UNSCH PRN IV FLUSH FLUSH AFTER USING IV ACCESS ; Start 10/23/17 at 23:45 Sodium Chloride (NS Flush) 2 ml BID IV FLUSH Last administered on 10/24/17at 09: 57; Start 10/24/17 at 09:00 Ondansetron HCl (Zofran Inj) 4 mg Q6H PRN IVP NAUSEA OR VOMITING Last administered on 10/24/17at 06:26; Start 10/23/17 at 23:45 Heparin Sodium (Porcine) (Heparin Inj) 5,000 units Q12H SQ Last administered on 10/24/17at 09:58; Start 10/24/17 at 09:00 Acetaminophen (Tylenol) 650 mg Q6H PRN PO FEVER/PAIN SCALE 1 TO 2; Start at 23:45 Morphine Sulfate (Morphine Inj) 2 mg Q3H PRN IV PUSH Pain 6-10 Last administered on 10/24/17at 09:58; Start 10/23/17 at 23:45; Stop 10/24/17 at 11:16 ; Status DC Senna/Docusate Sodium (Melania-Colace) 1 tab BID PO Last administered on at 09:59; Start 10/24/17 at 09:00 Magnesium Hydroxide (Milk Of Magnesia Liq) 30 ml Q12H PRN PO Mild constipation ; Start 10/23/17 at 23:45 Sennosides (Senokot) 17.2 mg Q12H PRN PO Moderate constipation; Start 10/23/17 at 23:45 Bisacodyl (Dulcolax Supp) 10 mg DAILY PRN RECTAL SEVERE CONSITIPATION; Start at 23:45 Lactulose (Lactulose Liq) 30 ml DAILY PRN PO SEVERE CONSITIPATION; Start at 23:45 Enalapril Maleate (Vasotec) 2.5 mg DAILY PO Last administered on 10/24/17at 09: 59; Start 10/24/17 at 09:00 Metformin HCl (Glucophage) 500 mg BIDPC PO Last administered on 10/24/17at 09:58 ; Start 10/24/17 at 09:00 Methocarbamol (Robaxin) 1,000 mg TID PO Last administered on 10/24/17at 09:59; Start 10/24/17 at 09:00 Oxycodone HCl (Roxicodone) 10 mg Q8H PRN PO PAIN; Start 10/23/17 at 23:45; Stop 10/23/17 at 23:54; Status DC Non-Formulary Medication 30 mg Q12HR PO ; Start 10/24/17 at 09:00; Status UNV Oxycodone HCl (Roxicodone) 10 mg Q8H PRN PO pain >4; Start 10/23/17 at 23:45 Propranolol HCl (Inderal) 30 mg BID PO Last administered on 10/24/17at 09:59; Start 10/24/17 at 09:00 Gabapentin (Neurontin) 300 mg TID PO ; Start 10/24/17 at 13:00 Lidocaine HCl (Lidoderm 5% Patch.12 Hr) 1 patch DAILY T-DERMAL ; Start 10/24/17 at 12:00 Methylprednisolone Sodium Succinate (SoluMEDROL INJ) 40 mg DAILY IV PUSH ; Start 10/24/17 at 12:00 Family History Past family history reviewed with him a history of cardiovascular disease. Social History Stop tobacco use 10 years ago. Denies any alcohol illicit drug use. Physical Exam Vital Signs Vital Signs Date Time Temp Pulse Resp B/P (MAP) Pulse Ox O2 Delivery O2 Flow Rate FiO2 10/24/17 10:13 18 10/24/17 09:00 96.0 86 18 134/82 (99) 94 10/24/17 08:40 10/24/17 07:15 98.1 71 16 150/76 (100) 96 Room Air 10/24/17 07:15 70 16 10/24/17 06:33 97.9 60 20 146/75 (98) 97 Room Air 10/24/17 03:58 71 18 121/65 (83) 95 10/24/17 00:30 73 20 157/93 (114) 95 Room Air 10/23/17 21:51 97.9 75 20 131/74 (93) 95 Physical Exam GENERAL: This is a well-nourished, well-developed patient, in no apparent distress. SKIN: Multiple ecchymosis/bruising of extremities. Cool and dry. HEAD: Atraumatic. Normocephalic. No temporal or scalp tenderness. EYES: Pupils equal round and reactive. Extraocular motions intact. No scleral icterus. No injection or drainage. ENT: Nose without bleeding, purulent drainage or septal hematoma. Throat without erythema, tonsillar hypertrophy or exudate. Uvula midline. Airway patent. NECK: Trachea midline. No JVD or lymphadenopathy. Supple, nontender, no meningeal signs. CARDIOVASCULAR: Regular rate and rhythm without murmurs, gallops, or rubs. RESPIRATORY: Clear to auscultation. Breath sounds equal bilaterally. No wheezes , rales, or rhonchi. GASTROINTESTINAL: Abdomen soft, non-tender, nondistended. No hepato-splenomegaly , or palpable masses. No guarding. MUSCULOSKELETAL: Extremities without clubbing, cyanosis, or edema. No joint tenderness, effusion, or edema noted. No calf tenderness. Negative Homans sign bilaterally. Right lower back with mild spinal muscle spasm. NEUROLOGICAL: Awake and alert. Cranial nerves II through XII intact. Motor and sensory grossly within normal limits. Five out of 5 muscle strength in all muscle groups. Normal speech. Laboratory Laboratory Tests Test 10/24/17 06:15 White Blood Count 5.2 Red Blood Count 4.21 Hemoglobin 12.0 Hematocrit 36.9 Mean Corpuscular Volume 87.5 Mean Corpuscular Hemoglobin 28.4 Mean Corpuscular Hemoglobin Concent 32.5 Red Cell Distribution Width 12.3 Platelet Count 300 Mean Platelet Volume 6.7 Neutrophils (%) (Auto) 56.2 Lymphocytes (%) (Auto) 30.9 Monocytes (%) (Auto) 10.4 Eosinophils (%) (Auto) 2.1 Basophils (%) (Auto) 0.4 Neutrophils # (Auto) 3.0 Lymphocytes # (Auto) 1.6 Monocytes # (Auto) 0.5 Eosinophils # (Auto) 0.1 Basophils # (Auto) 0.0 CBC Comment DIFF FINAL Differential Comment Blood Urea Nitrogen 14 Creatinine 0.59 Random Glucose 119 Total Protein 6.7 Albumin 3.3 Calcium Level 8.5 Alkaline Phosphatase 83 Aspartate Amino Transf (AST/SGOT) 31 Alanine Aminotransferase (ALT/SGPT) 33 Total Bilirubin 0.3 Sodium Level 138 Potassium Level 3.9 Chloride Level 104 Carbon Dioxide Level 28.9 Anion Gap 5 Estimat Glomerular Filtration Rate 104 Result Diagram: 10/24/17 0615 10/24/17 0615 Imaging Last Impressions Lumbar Spine CT 10/23/17 2333 Signed Impressions: Service Date/Time: Monday, October 23, 2017 23:44 - CONCLUSION: 1. Moderate to severe stenosis at the L4 and L5 multiple secondary to spondylolisthesis and diffuse disc bulge and a central to right-sided disc protrusion. There is also right neural foraminal narrowing at this level. 2. Disc decrease height and minimal bulging at the L5-S1 level. 3. Mild bulging at the L1-L2 through L3-L4 levels without significant stenosis. Emir Christopher MD Caprini VTE Risk Assessment Caprini VTE Risk Assessment: Mod/High Risk (score >= 2) Caprini Risk Assessment Model Point Value = 1 Point Value = 2 Point Value = 3 Point Value = 5 Age 41-60 Minor surgery BMI > 25 kg/m2 Swollen legs Varicose veins or History of unexplained or recurrent spontaneous Oral contraceptives or hormone replacement Sepsis (< 1 month) Serious lung disease, including pneumonia (< 1 month) Abnormal pulmonary function Acute myocardial infarction Congestive heart failure (< 1 month) History of inflammatory bowel disease Medical patient at bed rest Age 61-74 Arthroscopic surgery Major open surgery (> 45 min) Laparoscopic surgery (> 45 min) Malignancy Confined to bed (> 72 hours) Immobilizing plaster cast Central venous access Age >= 75 History of VTE Family history of VTE Factor V Leiden Prothrombin [id number] Lupus anticoagulant Anticardiolipin antibodies Elevated serum homocysteine Heparin-induced thrombocytopenia Other congenital or acquired thrombophilia Stroke (< 1 month) Elective arthroplasty Hip, pelvis, or leg fracture Acute spinal cord injury (< 1 month) Prophylaxis Regimen Total Risk Factor Score Risk Level Prophylaxis Regimen 0-1 Low Early ambulation 2 Moderate Order ONE of the following: *Sequential Compression Device (SCD) *Heparin 5000 units SQ BID 3-4 Higher Order ONE of the following medications: *Heparin 5000 units SQ TID *Enoxaparin/Lovenox 40 mg SQ daily (WT < 150 kg, CrCl > 30 mL/min) *Enoxaparin/Lovenox 30 mg SQ daily (WT < 150 kg, CrCl > 10-29 mL/min) *Enoxaparin/Lovenox 30 mg SQ BID (WT < 150 kg, CrCl > 30 mL/min) AND/OR *Sequential Compression Device (SCD) 5 or more Highest Order ONE of the following medications: *Heparin 5000 units SQ TID (Preferred with Epidurals) *Enoxaparin/Lovenox 40 mg SQ daily (WT < 150 kg, CrCl > 30 mL/min) *Enoxaparin/Lovenox 30 mg SQ daily (WT < 150 kg, CrCl > 10-29 mL/min) *Enoxaparin/Lovenox 30 mg SQ BID (WT < 150 kg, CrCl > 30 mL/min) AND *Sequential Compression Device (SCD) Assessment and Plan Assessment and Plan 62-year-old female with chronic lower back pain who presented with worsening of back pain Acute on chronic lower back pain -Patient seen pain management and had a steroid injection due to this back pain. She stated that it hasn't worsened over the past month. -CT scan of the lower back shows L4 to L5 moderate to severe stenosis secondary to spondylolisthesis and diffuse disc bulging and central right side disc protrusion. On other levels shows mild disc bulging. No cord compression. Refused MRI. -At home she is on oxycodone 10 mg 3 times a day, Robaxin, Flexeril. -There are no red flags strength is intact and no incontinence. will continue with her home regimen, start gabapentin, add Lidoderm patch, and Solu-Medrol. -Consult PT. Type 2 diabetes/COPD/hypertension -Restart home medication. Will start insulin sliding scale since she will be on a steroid. DVT prophylaxis -Lovenox. Discussed Condition With patient Lorena Crooks MD Oct 24, 2017 11:44
[2017-10-24] MEDS: methylPREDNISolone SOD SUCC 40 MG/1 ML VIAL IV PUSH SCH (12:00)
[2017-10-24] MEDS: GABAPENTIN 300 MG CAP PO SCH ×2 (13:00→18:13)
[2017-10-24] MEDS: LIDOCAINE HCL 5% PATCH T-DERMAL SCH (14:53)
[2017-10-25 00:26] VITALS: BP 137/74; PULSE 67; RESP 16; TEMP 95.6; O2SAT 94
[2017-10-25 08:00] VITALS: BP 142/96; PULSE 78; RESP 18; TEMP 96; O2SAT 93
[2017-10-25] MEDS: INSULIN ASPART SUPPLEMENTAL SCALE SQ SCH ×4 (08:15→20:45)
[2017-10-25] MEDS: SODIUM CHLORIDE 0.9% FLUSH 10 ML FLUSH IV FLUSH SCH ×2 (08:18→20:44)
[2017-10-25] MEDS: metFORMIN HCL 500 MG TAB PO SCH ×2 (08:19→17:46)
[2017-10-25] MEDS: methylPREDNISolone SOD SUCC 40 MG/1 ML VIAL IV PUSH SCH (08:19)
[2017-10-25] MEDS: PROPRANOLOL HCL 10 MG TAB PO SCH ×2 (08:21→20:41)
[2017-10-25] MEDS: METHOCARBAMOL 500 MG TAB PO SCH ×3 (08:21→17:47)
[2017-10-25] MEDS: GABAPENTIN 300 MG CAP PO SCH ×3 (08:21→17:47)
[2017-10-25] MEDS: ENALAPRIL MALEATE 2.5 MG TAB PO SCH (08:21)
[2017-10-25] MEDS: DOCUSATE SODIUM 50 MG/SENNA 8.6 MG TAB PO SCH ×2 (08:21→20:41)
[2017-10-25] MEDS: HEPARIN SODIUM - SQ 10,000 UNITS/ML VIAL SQ SCH ×2 (08:22→20:41)
[2017-10-25] MEDS: LIDOCAINE HCL 5% PATCH T-DERMAL SCH (08:22)
--- NOTE | 2017-10-25 11:57 | HHI.PR ---
Subjective Remarks Follow-up back pain. Patient reports pain in the right lower back. She reports weakness of both legs. She states that the pain is getting worse. Objective Vitals Vital Signs Date Time Temp Pulse Resp B/P (MAP) Pulse Ox O2 Delivery O2 Flow Rate FiO2 10/25/17 08:00 96.0 78 18 142/96 (111) 93 10/25/17 07:58 17 10/25/17 00:26 95.6 67 16 137/74 (95) 94 10/24/17 20:00 97.2 77 18 138/86 (103) 93 10/24/17 16:00 96.6 71 18 149/77 (101) 94 10/24/17 13:00 96.2 69 18 159/74 (102) 97 I/O 10/24/17 10/24/17 10/24/17 10/25/17 10/25/17 10/25/17 07:00 15:00 23:00 07:00 15:00 23:00 Intake Total 1000 ml 920 ml 480 ml Output Total 700 ml 600 ml Balance 300 ml 320 ml 480 ml Intake Oral 920 ml 480 ml IV Total 1000 ml Output Urine Total 700 ml 600 ml # Voids 1 3 1 1 # Bowel Movements 0 Result Diagram: 10/24/17 0615 10/24/17 0615 Imaging Last Impressions Lumbar Spine CT 10/23/17 2333 Signed Impressions: Service Date/Time: Monday, October 23, 2017 23:44 - CONCLUSION: 1. Moderate to severe stenosis at the L4 and L5 multiple secondary to spondylolisthesis and diffuse disc bulge and a central to right-sided disc protrusion. There is also right neural foraminal narrowing at this level. 2. Disc decrease height and minimal bulging at the L5-S1 level. 3. Mild bulging at the L1-L2 through L3-L4 levels without significant stenosis. Emir Christopher MD Objective Remarks General: No acute distress. Heart: Regular rate and rhythm. No murmur. Lungs: Clear to auscultation bilaterally. No wheezes, rales, or rhonchi. Breathing is nonlabored. Abdomen: Soft, nontender, nondistended. Extremities: No lower extremity edema. Psych: Alert and oriented. Neuro: Speech is somewhat slurred. Strength is 4/5 in both lower extremities. Skin: Ecchymosis on left upper extremity and bilateral lower extremities. Procedures None Urinary Catheter: No Vascular Central Line Catheter: No A/P Assessment and Plan 1. Low back pain: Patient also has bilateral lower extremity weakness. CT of the lumbar spine shows moderate to severe stenosis at the L4 and L5 level. Spondylolisthesis and diffuse disc bulge with a central to right-sided disc protrusion noted. There is right neural foraminal narrowing at the L4-L5 level. Decreased disc height and minimal bulging at the L5-S1 level. Mild bulging at the L1-L2 through L3-L4 levels without significant stenosis. Appreciate physical therapy evaluation. Consult neurosurgery. Continue steroids, pain medication, Lidoderm patch, gabapentin. 2. Diabetes mellitus type 2: Monitor Accu-Cheks and cover with sliding scale insulin. 3. COPD: Not currently in exacerbation. Bronchodilators as needed. Oxygen as needed. 4. Hypertension: Continue enalapril. Blood pressure elevated likely secondary to pain. 5. DVT prophylaxis: Heparin. Discharge Planning Pending neurosurgery evaluation. Cheo Urena MD Oct 25, 2017 11:57
[2017-10-25 12:00] VITALS: BP 144/84; PULSE 75; RESP 18; TEMP 97.7; O2SAT 93
[2017-10-25] MEDS ORDERED: LORazepam 2 MG/ML VIAL IV PUSH PRN (15:30)
[2017-10-25 16:00] VITALS: BP 126/95; PULSE 94; RESP 18; TEMP 96.5; O2SAT 91
[2017-10-25] MEDS: ACETAMINOPHEN 1000 MG/100 ML 100 ML IV SCH ×2 (16:25→22:10)
[2017-10-25 20:00] VITALS: BP 143/67; PULSE 88; RESP 18; TEMP 97.7; O2SAT 94
[2017-10-26] VITALS: BP 151/68; PULSE 67; RESP 20; TEMP 98.2; O2SAT 94
[2017-10-26 04:00] VITALS: BP 169/74; PULSE 70; RESP 21; TEMP 98.8; O2SAT 97
[2017-10-26] MEDS: ACETAMINOPHEN 1000 MG/100 ML 100 ML IV SCH ×4 (04:03→22:13)
[2017-10-26 08:00] VITALS: BP 158/71; PULSE 67; RESP 18; TEMP 98.7; O2SAT 96
[2017-10-26] MEDS: INSULIN ASPART SUPPLEMENTAL SCALE SQ SCH ×4 (08:00→22:15)
[2017-10-26] MEDS: HEPARIN SODIUM - SQ 10,000 UNITS/ML VIAL SQ SCH ×2 (09:00→21:00)
--- NOTE | 2017-10-26 09:35 | PD.CONS ---
(Twin Medel MD) HPI Consult Requested By Primary Care Physician Ramiro Clark MD (Twin Medel MD) Service Neurosurgery Consult Requested By Dr. Urena Reason for Consult Intractable back pain, lower extremity weakness, spinal stenosis History of Present Illness Ms. Austin is a 62 year old female who presented to [facility] ED with complains of right leg pain. The patient states she was being managed by Dr. Clark Pain Management for chronic low back pain. She was previously receiving injections in her lumbar spine which did help. Apparently she says his last injection he injected for the right leg and immediately following that injection she developed severe pain that radiated down her right leg. She says she does not have low back pain. Her pain is located in the right buttocks radiating down into the right lateral thigh, knee, philippe and to the top of the right foot. She reports of associated weakness in the right leg and has had difficulty ambulating due to the pain. She denies bowel or bladder incontinence , fevers or chills. She states she is severely claustrophobic and will only agree to an open MRI. She also reports she is not interested in any surgical intervention. A CT of the lumbar spine has been obtained. (Kelly Vargas) Review of Systems Constitutional: DENIES: Fever, Chills Eyes: DENIES: Diplopia, Vision loss Respiratory: DENIES: Apneas, Hemoptysis, Shortness of breath Cardiovascular: DENIES: Chest pain Gastrointestinal: DENIES: Abdominal pain, Nausea, Vomiting Musculoskeletal: COMPLAINS OF: Joint pain, Stiffness Neurologic: COMPLAINS OF: Abnormal gait, Localized weakness, Paresthesias, DENIES: Seizures Psychiatric: DENIES: Hallucinations (Kelly Vargas) Past Family Social History Allergies: Coded Allergies: aspirin (Unverified Allergy, Severe, VOMITING, 10/23/17) Past Medical History Hypertension COPD Diabetes Anxiety Osteoarthritis Migraines Past Surgical History Right and left knee surgery Tubal Ligation Sinus Surgeries Tonsillectomy Reported Medications reviewed in EMR Active Ordered Medications Current Medications Medications (Trade) Dose Ordered Sig/Reji Route PRN Reason Start Time Stop Time Status Last Admin Dose Admin Dextrose (D50w (Vial) Inj) 50 ml UNSCH PRN IV PUSH HYPOGLYCEMIA-SEE COMMENTS 10/23/17 23:45 Glucagon (Glucagon Inj) 1 mg UNSCH PRN OTHER HYPOGLYCEMIA-SEE COMMENTS 10/23/17 23:45 Insulin Aspart (NovoLOG SUPPLEMENTAL SCALE) 1 ACHS SLIDING SCALE SQ 10/24/17 08:00 10/25/17 20:45 Sodium Chloride (NS Flush) 2 ml UNSCH PRN IV FLUSH FLUSH AFTER USING IV ACCESS 10/23/17 23:45 Sodium Chloride (NS Flush) 2 ml BID IV FLUSH 10/24/17 09:00 10/26/17 09:52 Ondansetron HCl (Zofran Inj) 4 mg Q6H PRN IVP NAUSEA OR VOMITING 10/23/17 23:45 10/24/17 06:26 Heparin Sodium (Porcine) (Heparin Inj) 5,000 units Q12H SQ 10/24/17 09:00 10/25/17 20:41 Acetaminophen (Tylenol) 650 mg Q6H PRN PO FEVER/PAIN SCALE 1 TO 2 10/23/17 23:45 Senna/Docusate Sodium (Melania-Colace) 1 tab BID PO 10/24/17 09:00 10/26/17 09:53 Magnesium Hydroxide (Milk Of Magnesia Liq) 30 ml Q12H PRN PO Mild constipation 10/23/17 23:45 Sennosides (Senokot) 17.2 mg Q12H PRN PO Moderate constipation 10/23/17 23:45 Bisacodyl (Dulcolax Supp) 10 mg DAILY PRN RECTAL SEVERE CONSITIPATION 10/23/17 23:45 Lactulose (Lactulose Liq) 30 ml DAILY PRN PO SEVERE CONSITIPATION 10/23/17 23:45 Enalapril Maleate (Vasotec) 2.5 mg DAILY PO 10/24/17 09:00 10/26/17 09:53 Metformin HCl (Glucophage) 500 mg BIDPC PO 10/24/17 09:00 10/26/17 09:53 Methocarbamol (Robaxin) 1,000 mg TID PO 10/24/17 09:00 10/26/17 09:53 Propranolol HCl (Inderal) 30 mg BID PO 10/24/17 09:00 10/26/17 09:53 Gabapentin (Neurontin) 300 mg TID PO 10/24/17 13:00 10/26/17 09:54 Lidocaine HCl (Lidoderm 5% Patch.12 Hr) 1 patch DAILY T-DERMAL 10/24/17 12:00 10/26/17 09:54 Methylprednisolone Sodium Succinate (SoluMEDROL INJ) 40 mg DAILY IV PUSH 10/24/17 12:00 10/26/17 09:53 Oxycodone HCl (Roxicodone) 10 mg Q6H PRN PO PAIN > 4 10/25/17 15:00 10/26/17 10:08 Acetaminophen 100 ml @ 400 mls/hr Q6H IV 10/25/17 16:00 10/27/17 15:59 10/26/17 09:54 Lorazepam (Ativan Inj) 1 mg UNSCH X1 PRN IV PUSH MAY USE 30 MIN PRIOR TO MRI 10/25/17 15:30 10/26/17 15:29 Family History reviewed, does not contribute to her current problem Social History she denies tobacco, etoh, or illicit drug use (Kelly Vargas) Physical Exam Vital Signs Vital Signs Date Time Temp Pulse Resp B/P (MAP) Pulse Ox O2 Delivery O2 Flow Rate FiO2 10/26/17 08:00 98.7 67 18 158/71 (100) 96 10/26/17 04:00 98.8 70 21 169/74 (105) 97 10/26/17 00:00 98.2 67 20 151/68 (95) 94 10/25/17 20:00 97.7 88 18 143/67 (92) 94 10/25/17 16:00 96.5 94 18 126/95 (105) 91 10/25/17 12:00 97.7 75 18 144/84 (104) 93 (Twin Medel MD) Physical Exam General:Ms. Austin is comfortable, in no obvious distress during examination. Neuro: Awake, alert and oriented to person, place, and time. Speech slow and slurred. Can follow single and multi-step commands without apraxia. Cranial nerve examination demonstrates the pupils to be equal, round, and reactive to light. Extra-ocular movements are intact with normal convergence. Facial motor and sensory function are normal and symmetrical. Gross hearing is intact, bilaterally, to finger rub. The uvula is midline and elevates symmetrically with the soft palate. Sternocleidomastoid and deltoid muscles have normal and symmetrical strength. Other cranial nerves are intact. HENT: Normocephalic, atraumatic. Hearing intact to finger rub bilaterally. Eyes: Pupils equal round. Extra-ocular movement intact. Nonicteric sclera. Neck: soft, supple Extremities No peripheral edema. 5/5 in all muscle groups of both upper extremities including deltoid, biceps, triceps and soil analyst. In the lower extremities, strength is 4/5 right iliopsoas, quadriceps, hamstrings with pain, 5/5 left iliopsoas, quadriceps, hamstrings, bilateral tibialis anterior, gastrocnemius, and left extensor hallucis longus, right toe chronically extended. . Sensory examination is intact pinprick in both the upper and lower extremities with reports of paresthesias following right L5. Deep tendon reflexes are 1+ biceps, triceps, and brachioradialis, bilaterally, in the upper extremities. In the lower extremities, the patellar absent right, trace left and Achilles are trace, bilaterally. There is a left plantar flexion response, right plantar cannot assess as toe is chronically extended. Hoffmanns sign is negative. There is no ankle clonus. Cerebellar: intact finger to nose bilaterally Lungs: clear, nonlabored breathing, no wheezing Heart: S1, S2 Skin: warm and dry, no cyanosis. (Kelly Vargas) Result Diagram: 10/24/17 0615 10/24/17 0615 Imaging Last Impressions Lumbar Spine CT 10/23/17 4643 Signed Impressions: Service Date/Time: Monday, October 23, 2017 23:44 - CONCLUSION: 1. Moderate to severe stenosis at the L4 and L5 multiple secondary to spondylolisthesis and diffuse disc bulge and a central to right-sided disc protrusion. There is also right neural foraminal narrowing at this level. 2. Disc decrease height and minimal bulging at the L5-S1 level. 3. Mild bulging at the L1-L2 through L3-L4 levels without significant stenosis. Emir Christopher MD (Kelly Vargas) Attending Statement I have reviewed with Ms Austin her clinical and radiological findings. Using her radiological studies I discussed with her the alternative methods of treatment including, conservative management, pain management by an interventional interior painter, or a surgical decompression, which should always be a last resort. She is requesting nonoperative treatment. She is not interested in any type of surgical procedure. I recommend conservative treatment with physical therapy and pain management by a pain specialist Pulmonary. Continue aggressive pulmonary toilette, nasotracheal suction, and breathing treatments with nebulizers. Daily PT and OT Nutrition. Tolerating Oral diet Renal. Continue to monitor closely urine output, BUN and creatinine Endocrine. Continue to Monitor serial Acu checks and SSI as needed in detail ID continue to monitor for signs of infection Continue Protonix for stress ulcer prophylaxis Continue Yg hose and SCD's for DVT prophylaxis The exam, history, and the medical decision-making described in the above note were completed with the assistance of the mid-level provider. I reviewed and agree with the findings presented. I attest that I had a [id number] encounter with the patient on the same day, and personally performed and documented my assessment and findings in the medical record. (Twin Medel MD) Twin Medel MD Oct 26, 2017 09:35 Kelly Vargas Oct 26, 2017 10:33
[2017-10-26] MEDS: SODIUM CHLORIDE 0.9% FLUSH 10 ML FLUSH IV FLUSH SCH ×2 (09:52→22:15)
[2017-10-26] MEDS: metFORMIN HCL 500 MG TAB PO SCH ×2 (09:53→17:11)
[2017-10-26] MEDS: METHOCARBAMOL 500 MG TAB PO SCH ×3 (09:53→17:11)
[2017-10-26] MEDS: ENALAPRIL MALEATE 2.5 MG TAB PO SCH (09:53)
[2017-10-26] MEDS: DOCUSATE SODIUM 50 MG/SENNA 8.6 MG TAB PO SCH ×2 (09:53→22:14)
[2017-10-26] MEDS: methylPREDNISolone SOD SUCC 40 MG/1 ML VIAL IV PUSH SCH (09:53)
[2017-10-26] MEDS: PROPRANOLOL HCL 10 MG TAB PO SCH ×2 (09:53→22:13)
[2017-10-26] MEDS: LIDOCAINE HCL 5% PATCH T-DERMAL SCH (09:54)
[2017-10-26] MEDS: GABAPENTIN 300 MG CAP PO SCH ×3 (09:54→17:11)
[2017-10-26 12:00] VITALS: BP 118/62; PULSE 64; RESP 18; TEMP 98.6; O2SAT 93
--- NOTE | 2017-10-26 15:00 | HHI.PR ---
Subjective Remarks Patient reports right buttocks pain. She wants to get up and walk with physical therapy. Objective Vitals Vital Signs Date Time Temp Pulse Resp B/P (MAP) Pulse Ox O2 Delivery O2 Flow Rate FiO2 10/26/17 12:00 98.6 64 18 118/62 (80) 93 10/26/17 08:00 98.7 67 18 158/71 (100) 96 10/26/17 04:00 98.8 70 21 169/74 (105) 97 10/26/17 00:00 98.2 67 20 151/68 (95) 94 10/25/17 20:00 97.7 88 18 143/67 (92) 94 10/25/17 16:00 96.5 94 18 126/95 (105) 91 I/O 10/25/17 10/25/17 10/25/17 10/26/17 10/26/17 10/26/17 07:00 15:00 23:00 07:00 15:00 23:00 Intake Total 480 ml 480 ml 240 ml Balance 480 ml 480 ml 240 ml Intake Oral 480 ml 480 ml 240 ml # Voids 1 2 2 1 # Bowel Movements 0 0 0 Result Diagram: 10/24/17 0615 10/24/17 0615 Objective Remarks GENERAL: This is a well-nourished, well-developed patient, in no apparent distress. CARDIOVASCULAR: Normal rate and regular rhythm without murmurs, gallops, or rubs. RESPIRATORY: Good respiratory efforts. Breath sounds equal and clear to auscultation bilaterally. GASTROINTESTINAL: Abdomen soft, non-tender, non-distended. Normal active bowel sounds MUSCULOSKELETAL: Positive straight leg test on the right. Strength normal except for right lower extremity is 4 out of 5. NEURO: Alert & Oriented x4 to person, place, time, situation. Moves all ext x4 PSYCH: Appropriate mood and affect. Procedures None A/P Assessment and Plan 62-year-old female with lumbar radiculopathy admitted with intractable back pain , lower extremity weakness and difficulty walking. Imaging findings noted above. Significant for radiculopathy. 1. Radiculopathy/ Low back pain: Patient also has bilateral lower extremity weakness. CT of the lumbar spine shows moderate to severe stenosis at the L4 and L5 level. Spondylolisthesis and diffuse disc bulge with a central to right- sided disc protrusion noted. There is right neural foraminal narrowing at the L4 -L5 level. Decreased disc height and minimal bulging at the L5-S1 level. Mild bulging at the L1-L2 through L3-L4 levels without significant stenosis. Appreciate physical therapy evaluation. - Neurosurgery consult pending. Continue steroids, pain medication, Lidoderm patch, gabapentin. 2. Diabetes mellitus type 2: Monitor Accu-Cheks and cover with sliding scale insulin. 3. COPD: Not currently in exacerbation. Bronchodilators as needed. Oxygen as needed. 4. Hypertension: Continue enalapril. Blood pressure better. 5. DVT prophylaxis: Heparin. Discharge Planning Pending recommendations from neurosurgery. Will need home health with PT versus rehab placement. Remington Bolanos MD Oct 26, 2017 15:00
[2017-10-26 16:00] VITALS: BP 132/63; PULSE 75; RESP 18; O2SAT 92
[2017-10-26 21:00] VITALS: BP 135/63; PULSE 78; RESP 18; TEMP 97.3; O2SAT 94
[2017-10-27 00:25] VITALS: BP 151/70; PULSE 63; RESP 18; TEMP 98; O2SAT 97
[2017-10-27] MEDS: ACETAMINOPHEN 1000 MG/100 ML 100 ML IV SCH ×2 (04:24→09:03)
[2017-10-27 06:28] VITALS: BP 161/73; PULSE 66; RESP 18; TEMP 97.6; O2SAT 95
[2017-10-27 08:03] VITALS: BP 128/60; PULSE 88; RESP 18; TEMP 97.3; O2SAT 96
[2017-10-27] MEDS: DOCUSATE SODIUM 50 MG/SENNA 8.6 MG TAB PO SCH (08:53)
[2017-10-27] MEDS: PROPRANOLOL HCL 10 MG TAB PO SCH (08:53)
[2017-10-27] MEDS: ENALAPRIL MALEATE 2.5 MG TAB PO SCH (08:53)
[2017-10-27] MEDS: INSULIN ASPART SUPPLEMENTAL SCALE SQ SCH ×2 (08:53→12:16)
[2017-10-27] MEDS: GABAPENTIN 300 MG CAP PO SCH ×2 (08:53→12:16)
[2017-10-27] MEDS: METHOCARBAMOL 500 MG TAB PO SCH ×2 (08:53→12:16)
[2017-10-27] MEDS: methylPREDNISolone SOD SUCC 40 MG/1 ML VIAL IV PUSH SCH (08:54)
[2017-10-27] MEDS: HEPARIN SODIUM - SQ 10,000 UNITS/ML VIAL SQ SCH (08:54)
[2017-10-27] MEDS: metFORMIN HCL 500 MG TAB PO SCH (08:54)
[2017-10-27] MEDS: SODIUM CHLORIDE 0.9% FLUSH 10 ML FLUSH IV FLUSH SCH (08:54)
[2017-10-27] MEDS: LIDOCAINE HCL 5% PATCH T-DERMAL SCH (08:54)
[2017-10-27] MEDS ORDERED: OXYC-395 PO (11:04)
[2017-10-27] MEDS ORDERED: ROBA500T PO (11:04)
[2017-10-27] MEDS ORDERED: PRED10PA PO (11:04)
[2017-10-27] MEDS ORDERED: LIDO1ADH4 T-DERMAL (11:04)
[2017-10-27] MEDS ORDERED: NEUR300C PO (11:04)
--- NOTE | 2017-10-27 11:05 | HHI.DS ---
Discharge Summary Admission Date Oct 24, 2017 at 00:11 Discharge Date: Oct 27, 2017 Admitting Diagnosis intractable back pain with inability to ambulate (1) Radiculopathy of lumbosacral region ICD Code: M54.17 - Radiculopathy, lumbosacral region (2) Hypertension ICD Code: I10 - Hypertension Status: Chronic (3) Diabetes ICD Code: E11.9 - Diabetes Status: Chronic Procedures None Brief History - From Admission History of present illness from the admitting physician This is a 62-year-old female past medical history for COPD, diabetes, hypertension, and chronic lower back pain who presented with worsening of her lower back pain. Patient has a pain management physician due to her chronic lower back pain. She stated that about one month ago her lower back pain worsened described more on the right side radiating down the right side. The radiating pain sounds more like a pins and needles but her pain below her knees more for numbness. Patient then saw her pain management physician who gave her steroid injection in which she stated worsen her pain. Patient stated that she was given oxycodone which she takes chronically and also multiple muscle relaxants. Patient stated that pain has not improved and worsened over the past couple days where she can not ambulate so she went to the emergency department twice due to the symptoms. Patient denies any lower extremity weakness. She denies any fecal or urinary incontinence. At baseline patient uses a walker at home and a scooter. All other review system reviewed and negative. CBC/BMP: 10/24/17 0615 10/24/17 0615 Imaging Last Impressions Lumbar Spine CT 10/23/17 3140 Signed Impressions: Service Date/Time: Monday, October 23, 2017 23:44 - CONCLUSION: 1. Moderate to severe stenosis at the L4 and L5 multiple secondary to spondylolisthesis and diffuse disc bulge and a central to right-sided disc protrusion. There is also right neural foraminal narrowing at this level. 2. Disc decrease height and minimal bulging at the L5-S1 level. 3. Mild bulging at the L1-L2 through L3-L4 levels without significant stenosis. Emir Christopher MD PE at Discharge GENERAL: This is a well-nourished, well-developed patient, in no apparent distress. CARDIOVASCULAR: Normal rate and regular rhythm without murmurs, gallops, or rubs. RESPIRATORY: Good respiratory efforts. Breath sounds equal and clear to auscultation bilaterally. GASTROINTESTINAL: Abdomen soft, non-tender, non-distended. Normal active bowel sounds MUSCULOSKELETAL: Positive straight leg test on the right. Strength normal except for right lower extremity is 4 out of 5. NEURO: Alert & Oriented x4 to person, place, time, situation. Moves all ext x4 PSYCH: Appropriate mood and affect. Pt update on day of discharge Patient reports she is following up a. Looking forward to rehabilitation. Hospital Course 62-year-old female with lumbar radiculopathy admitted with intractable back pain , lower extremity weakness and difficulty walking. Imaging findings noted above. Significant for radiculopathy. The patient was evaluated by neurosurgery. She does not want any surgical intervention at this point. Neurosurgery recommended conservative management for now with physical therapy. Patient was treated with steroids, pain medication, Lidoderm patch, gabapentin , and physical therapy. Patient is discharged to SNF for rehabilitation. Pt Condition on Discharge: Good Discharge Disposition: Discharge to SNF Discharge Time: > 30 minutes Discharge Instructions DIET: Follow Instructions for: Diabetic Diet Activities you can perform: Regular-No Restrictions Follow up Referrals: Neurosurgery with Twin Medel MD New Medications: Prednisone (21) 10 mg tab Dose Pack (Prednisone (21) 10 mg tab Dose Pack) 10 Mg Pack 10 MG PO DIRECTED for Inflammation, #1 DSPK 0 Refills Gabapentin (Neurontin) 300 Mg Cap 300 MG PO TID, #90 CAP Lidocaine (Lidoderm) 5 % Adh..patch 1 PATCH T-DERMAL DAILY, #15 PATCH Changed Medications: Methocarbamol (Robaxin) 500 Mg Tab 1000 MG PO TID PRN for muscle spasm, #20 TAB 0 Refills (Changed from: 15) Oxycodone (Oxycodone) 10 Mg Tab 10 MG PO Q6HR PRN for PAIN, #30 TAB 0 Refills (Changed from: Q8H) Continued Medications: Enalapril (Enalapril) 2.5 Mg Tab 2.5 MG PO DAILY, #30 TAB 0 Refills Metformin (Metformin) 500 Mg Tab 500 MG PO BIDPC for Blood Sugar Management, #60 TAB 0 Refills With meals Propranolol (Propranolol) 60 Mg Tab 30 MG PO Q12HR, #60 TAB 0 Refills Discontinued Medications: Cyclobenzaprine (Flexeril) 10 Mg Tab 10 MG PO TID for Muscle Spasm, #90 TAB 0 Refills Potassium Chloride ER (Potassium Chloride ER) 10 Meq Cap 10 MEQ PO DAILY for Electrolyte Replacement, #30 CAP 0 Refills Remington Bolanos MD Oct 27, 2017 11:05
--- NOTE | 2017-10-27 18:28 | HHI.NSPN ---
(Kelly Vargas) Note Status Status: Progress Note (Kelly Vargas) Interval History Interval History Ms. Austin is a 62 year old female who presented to [facility] ED with complains of right leg pain. The patient states she was being managed by Dr. [facility] for chronic low back pain. She was previously receiving injections in her lumbar spine which did help. Apparently she says his last injection he injected for the right leg and immediately following that injection she developed severe pain that radiated down her right leg. She says she does not have low back pain. Her pain is located in the right buttocks radiating down into the right lateral thigh, knee, philippe and to the top of the right foot. She reports of associated weakness in the right leg and has had difficulty ambulating due to the pain. She denies bowel or bladder incontinence , fevers or chills. She states she is severely claustrophobic and will only agree to an open MRI. She also reports she is not interested in any surgical intervention. A CT of the lumbar spine has been obtained. 10/27: patient was seen during morning rounds, she reports no improvement in right leg pain. she continues to refuse closed MRI as well as any surgical intervention. (Kelly Vargas) Labs, Micro, & Vital Signs Results Date Time Temp Pulse Resp B/P (MAP) Pulse Ox O2 Delivery O2 Flow Rate FiO2 10/27/17 08:03 97.3 88 18 128/60 (82) 96 10/27/17 06:28 97.6 66 18 161/73 (102) 95 10/27/17 00:25 98.0 63 18 151/70 (97) 97 10/26/17 21:00 97.3 78 18 135/63 (87) 94 Constitutional Vital Signs Date Time Temp Pulse Resp B/P (MAP) Pulse Ox O2 Delivery O2 Flow Rate FiO2 10/27/17 08:03 97.3 88 18 128/60 (82) 96 10/27/17 06:28 97.6 66 18 161/73 (102) 95 10/27/17 00:25 98.0 63 18 151/70 (97) 97 10/26/17 21:00 97.3 78 18 135/63 (87) 94 (Kelly Vargas) Physical Exam General:Ms. Austin is comfortable, in no obvious distress during examination. Neuro: Awake, alert and oriented to person, place, and time. Speech slow and slurred. Can follow single and multi-step commands without apraxia. Cranial nerve examination demonstrates the pupils to be equal, round, and reactive to light. Extra-ocular movements are intact with normal convergence. Facial motor and sensory function are normal and symmetrical. Gross hearing is intact, bilaterally, to finger rub. The uvula is midline and elevates symmetrically with the soft palate. Sternocleidomastoid and deltoid muscles have normal and symmetrical strength. Other cranial nerves are intact. HENT: Normocephalic, atraumatic. Hearing intact to finger rub bilaterally. Eyes: Pupils equal round. Extra-ocular movement intact. Nonicteric sclera. Neck: soft, supple Extremities No peripheral edema. 5/5 in all muscle groups of both upper extremities including deltoid, biceps, triceps and pharmacy technologist. In the lower extremities, strength is 4/5 right iliopsoas, quadriceps, hamstrings with pain, 5/5 left iliopsoas, quadriceps, hamstrings, bilateral tibialis anterior, gastrocnemius, and left extensor hallucis longus, right toe chronically extended. . Sensory examination is intact pinprick in both the upper and lower extremities with reports of paresthesias following right L5. Deep tendon reflexes are 1+ biceps, triceps, and brachioradialis, bilaterally, in the upper extremities. In the lower extremities, the patellar absent right, trace left and Achilles are trace, bilaterally. There is a left plantar flexion response, right plantar cannot assess as toe is chronically extended. Hoffmanns sign is negative. There is no ankle clonus. Cerebellar: intact finger to nose bilaterally Lungs: clear, nonlabored breathing, no wheezing Heart: S1, S2 Skin: warm and dry, no cyanosis. (Kelly Vargas) Ms. Austin is comfortable, in no obvious distress during examination. Neuro: Awake, alert and oriented to person, place, and time. Speech slow and slurred. Can follow single and multi-step commands without apraxia. Cranial nerve examination demonstrates the pupils to be equal, round, and reactive to light. Extra-ocular movements are intact with normal convergence. Facial motor and sensory function are normal and symmetrical. Gross hearing is intact, bilaterally, to finger rub. The uvula is midline and elevates symmetrically with the soft palate. Sternocleidomastoid and deltoid muscles have normal and symmetrical strength. Other cranial nerves are intact. HENT: Normocephalic, atraumatic. Hearing intact to finger rub bilaterally. Eyes: Pupils equal round. Extra-ocular movement intact. Nonicteric sclera. Neck: soft, supple Extremities No peripheral edema. 5/5 in all muscle groups of both upper extremities including deltoid, biceps, triceps and pharmacy technologist. In the lower extremities, strength is 4/5 right iliopsoas, quadriceps, hamstrings with pain, 5/5 left iliopsoas, quadriceps, hamstrings, bilateral tibialis anterior, gastrocnemius, and left extensor hallucis longus, right toe chronically extended. . Sensory examination is intact pinprick in both the upper and lower extremities with reports of paresthesias following right L5. Deep tendon reflexes are 1+ biceps, triceps, and brachioradialis, bilaterally, in the upper extremities. In the lower extremities, the patellar absent right, trace left and Achilles are trace, bilaterally. There is a left plantar flexion response, right plantar cannot assess as toe is chronically extended. Hoffmanns sign is negative. There is no ankle clonus. Cerebellar: intact finger to nose bilaterally Lungs: clear, nonlabored breathing, no wheezing Heart: S1, S2 Skin: warm and dry, no cyanosis. (Twin Medel MD) Medications Current Medications Current Medications Ondansetron HCl (Zofran Inj) 4 mg ONCE ONCE IV Last administered on 10/23/17at 23:30; Start 10/23/17 at 23:30; Stop 10/23/17 at 23:31; Status DC Hydromorphone HCl (Dilaudid Pf Inj) 0.5 mg ONCE ONCE IV PUSH Last administered on 10/23/17at 23:30; Start 10/23/17 at 23:30; Stop 10/23/17 at 23:31 ; Status DC Sodium Chloride 1,000 ml @ 2,000 mls/hr Q30M IV Last administered on at 00:03; Start 10/23/17 at 23:30; Stop 10/23/17 at 23:59; Status DC Dextrose (D50w (Vial) Inj) 50 ml UNSCH PRN IV PUSH HYPOGLYCEMIA-SEE COMMENTS; Start 10/23/17 at 23:45; Stop 10/27/17 at 14:47; Status DC Glucagon (Glucagon Inj) 1 mg UNSCH PRN OTHER HYPOGLYCEMIA-SEE COMMENTS; Start 10/23/17 at 23:45; Stop 10/27/17 at 14:47; Status DC Insulin Aspart (NovoLOG SUPPLEMENTAL SCALE) 1 ACHS SLIDING SCALE SQ Last administered on 10/27/17at 12:16; Start 10/24/17 at 08:00; Stop 10/27/17 at 14:47 ; Status DC Sodium Chloride (NS Flush) 2 ml UNSCH PRN IV FLUSH FLUSH AFTER USING IV ACCESS ; Start 10/23/17 at 23:45; Stop 10/27/17 at 14:47; Status DC Sodium Chloride (NS Flush) 2 ml BID IV FLUSH Last administered on 10/27/17at 08: 54; Start 10/24/17 at 09:00; Stop 10/27/17 at 14:47; Status DC Ondansetron HCl (Zofran Inj) 4 mg Q6H PRN IVP NAUSEA OR VOMITING Last administered on 10/24/17at 06:26; Start 10/23/17 at 23:45; Stop 10/27/17 at 14:47 ; Status DC Heparin Sodium (Porcine) (Heparin Inj) 5,000 units Q12H SQ Last administered on 10/25/17at 20:41; Start 10/24/17 at 09:00; Stop 10/27/17 at 14:47; Status DC Acetaminophen (Tylenol) 650 mg Q6H PRN PO FEVER/PAIN SCALE 1 TO 2; Start at 23:45; Stop 10/27/17 at 14:47; Status DC Morphine Sulfate (Morphine Inj) 2 mg Q3H PRN IV PUSH Pain 6-10 Last administered on 10/24/17at 09:58; Start 10/23/17 at 23:45; Stop 10/24/17 at 11:16 ; Status DC Senna/Docusate Sodium (Melania-Colace) 1 tab BID PO Last administered on at 08:53; Start 10/24/17 at 09:00; Stop 10/27/17 at 14:47; Status DC Magnesium Hydroxide (Milk Of Magnesia Liq) 30 ml Q12H PRN PO Mild constipation ; Start 10/23/17 at 23:45; Stop 10/27/17 at 14:47; Status DC Sennosides (Senokot) 17.2 mg Q12H PRN PO Moderate constipation; Start 10/23/17 at 23:45; Stop 10/27/17 at 14:47; Status DC Bisacodyl (Dulcolax Supp) 10 mg DAILY PRN RECTAL SEVERE CONSITIPATION; Start at 23:45; Stop 10/27/17 at 14:47; Status DC Lactulose (Lactulose Liq) 30 ml DAILY PRN PO SEVERE CONSITIPATION; Start at 23:45; Stop 10/27/17 at 14:47; Status DC Enalapril Maleate (Vasotec) 2.5 mg DAILY PO Last administered on 10/27/17at 08: 53; Start 10/24/17 at 09:00; Stop 10/27/17 at 14:47; Status DC Metformin HCl (Glucophage) 500 mg BIDPC PO Last administered on 10/27/17at 08:54 ; Start 10/24/17 at 09:00; Stop 10/27/17 at 14:47; Status DC Methocarbamol (Robaxin) 1,000 mg TID PO Last administered on 10/27/17at 12:16; Start 10/24/17 at 09:00; Stop 10/27/17 at 14:47; Status DC Oxycodone HCl (Roxicodone) 10 mg Q8H PRN PO PAIN; Start 10/23/17 at 23:45; Stop 10/23/17 at 23:54; Status DC Non-Formulary Medication 30 mg Q12HR PO ; Start 10/24/17 at 09:00; Status UNV Oxycodone HCl (Roxicodone) 10 mg Q8H PRN PO pain >4 Last administered on at 14:21; Start 10/23/17 at 23:45; Stop 10/25/17 at 14:34; Status DC Propranolol HCl (Inderal) 30 mg BID PO Last administered on 10/27/17at 08:53; Start 10/24/17 at 09:00; Stop 10/27/17 at 14:47; Status DC Gabapentin (Neurontin) 300 mg TID PO Last administered on 10/27/17at 12:16; Start 10/24/17 at 13:00; Stop 10/27/17 at 14:47; Status DC Lidocaine HCl (Lidoderm 5% Patch.12 Hr) 1 patch DAILY T-DERMAL Last administered on 10/27/17at 08:54; Start 10/24/17 at 12:00; Stop 10/27/17 at 14:47 ; Status DC Methylprednisolone Sodium Succinate (SoluMEDROL INJ) 40 mg DAILY IV PUSH Last administered on 10/27/17at 08:54; Start 10/24/17 at 12:00; Stop 10/27/17 at 14:47 ; Status DC Oxycodone HCl (Roxicodone) 10 mg Q6H PRN PO PAIN > 4 Last administered on at 11:32; Start 10/25/17 at 15:00; Stop 10/27/17 at 14:47; Status DC Acetaminophen 100 ml @ 400 mls/hr Q6H IV Last administered on 10/27/17at 09:03 ; Start 10/25/17 at 16:00; Stop 10/27/17 at 14:47; Status DC Lorazepam (Ativan Inj) 1 mg UNSCH X1 PRN IV PUSH MAY USE 30 MIN PRIOR TO MRI; Start 10/25/17 at 15:30; Stop 10/26/17 at 15:31; Status DC (Twin Medel MD) Medical Decision Making MDM Remarks 62 y/o female with right radicular pain, sciatica pain, CT L spine shows disc protrusion at L4-5 with stenosis, pt severely claustrophobic - she only agrees to Open MRI, she is also not interested in surgical intervention (Kelly Vargas) Plan Plan Remarks cont nonsurgical mgt recommend Open MRI which can be done outpatient, recommend Physical Therapy and Pain Management, no further neurosurgical intervention planned, will sign off, call prn (Kelly Vargas) Attending Statement As above She is contnuing to request nonsurgical treatment Please consider a program of physical therapy and ih her pain gets worse, pain management. Will sign off The exam, history, and the medical decision-making described in the above note were completed with the assistance of the mid-level provider. I reviewed and agree with the findings presented. I attest that I had a [id number] encounter with the patient on the same day, and personally performed and documented my assessment and findings in the medical record. (Twin Medel MD) Kelly Vargas Oct 27, 2017 18:28 Twin Medel MD Oct 29, 2017 15:03
== END 2017-10-27 14:47 ==
LOC: PHED 21:42 → PHEDA 10-24 00:11 → PHEDH 10-24 04:02 → PH3A 10-24 08:55 → N05B 10-25 20:01
PROVIDERS: ADMIT Family Medicine; ATTEND Family Medicine
DX: M54.17 Radiculopathy, lumbosacral region (principal); M48.061 Spinal stenosis, lumbar region without neurogenic claudication; M79.661 Pain in right lower leg; E11.9 Type 2 diabetes mellitus without complications; I10 Essential (primary) hypertension; J44.9 Chronic obstructive pulmonary disease, unspecified; G43.909 Migraine, unspecified, not intractable, without status migrainosus; F40.240 Claustrophobia; Z79.84 Long term (current) use of oral hypoglycemic drugs; Z79.4 Long term (current) use of insulin
CPT/HCPCS: 72131; 80053; 82948; 85025; 96361; 96372; 96374; 96375; 96376; 97110; 97116; 97162; 99285; G0378; G8987; G8988; J0131; J1170; J1644; J1815; J2270; J2405; J2920; J7030

== ENCOUNTER 2017-12-10 18:48 | Emergency (ER) | payer OTHER ==
[~2017-12-10] VITALS: Ht 154.9 cm; Wt 68.0 kg
[~2017-12-10 18:48] MED LIST changes: -CYCL10TA PO; +LIDO1ADH4 T-DERMAL; +NEUR300C PO; -POTA10CA PO; +PRED10PA PO; -[UNRECOGNIZED DRUG - REMARK] PO
[2017-12-10 19:10] VITALS: BP 141/65; PULSE 80; RESP 20; TEMP 97.6; O2SAT 97
[2017-12-10] MEDS ORDERED: CYCL10TA PO (19:16)
[2017-12-10] MEDS ORDERED: KETOROLAC TROMETHAMINE 60 MG/2 ML (IM) VIAL IM ONE (21:15)
[2017-12-10] MEDS ORDERED: DIAZEPAM 10 MG TAB PO ONE (21:15)
--- NOTE | 2017-12-10 21:45 | RADRPT ---
EXAM DATE/TIME: 12/10/2017 21:28 [facility] COMPARISON: No previous studies available for comparison. INDICATIONS : Lower back pain MEDICAL HISTORY : None. SURGICAL HISTORY : None. ENCOUNTER: Initial ACUITY: 1 month PAIN SCORE: 10/10 LOCATION: lumbar spine FINDINGS: Grade 1 anterolisthesis of L4 on L5 and retrolisthesis of L3 on L4. Moderate disc space narrowing at 045 and severe disc space L5-S1 with endplate sclerosis and vacuum disc phenomenon at L4-5 and L5-S1. Moderate facet hypertrophy L5-S1. No compression deformity. No spondylolysis. CONCLUSION: Degenerative changes. Bc Perez MD on December 10, 2017 at 21:43 Board Certified Radiologist. This report was verified electronically.
[2017-12-10] MEDS ORDERED: KETO10 PO (22:25)
[2017-12-10] MEDS ORDERED: DIAZ5 PO (22:25)
--- NOTE | 2017-12-10 22:25 | PD ---
HPI Chief Complaint: Pain: Acute or Chronic Time Seen by Provider: 21:00 Travel History International Travel<30 days: No Contact w/Intl Traveler<30days: No Traveled to known affect area: No History of Present Illness HPI Patient is a 62 year old female who comes in complaining of lower back pain. She has history of chronic low back pain and takes Oxycodone 4 times a day for this. She says nothing is new, she just cannot take the pain and she would like to be admitted to go to rehab. She was here in October for the same thing and it was suggested she have physical therapy. She has appointments with her doctors, one on December 15. She denies new injury. She says she is walking with a walker. She denies incontinence. She denies numbness or tingling. Severity is mild to moderate. PFSH Past Medical History Arthritis: Yes Asthma: No Autoimmune Disease: No Anxiety: Yes Depression: No Heart Rhythm Problems: No Cancer: No Cardiovascular Problems: Yes High Cholesterol: No Chest Pain: No Congestive Heart Failure: No COPD: Yes Diabetes: Yes Patient Takes Glucophage: Yes Diminished Hearing: No Endocrine: Yes Gastrointestinal Disorders: No Genitourinary: No Headaches: Yes Hepatitis: No Hiatal Hernia: No Hypertension: Yes Immune Disorder: No Kidney Stones: No Musculoskeletal: Yes (ARTHRITIS) Neurologic: Yes (MIGRAINES) Psychiatric: Yes (ANXIETY) Reproductive: No Respiratory: Yes (COPD) Immunizations Current: Yes Migraines: Yes Myocardial Infarction: No Renal Failure: No Sickle Cell Disease: No Sleep Apnea: No Thyroid Disease: No Ulcer: No ?: Not Menopausal: Yes : 3 Para: 2 Miscarriage: 5 Tubal Ligation: Yes Past Surgical History Abdominal Surgery: No AICD: No Appendectomy: No Body Medical Devices: SCREW RIGHT KNEE Cardiac Surgery: No Cholecystectomy: No Genitourinary Surgery: No Gynecologic Surgery: Yes (TUBAL LIGATION) Insulin Pump: No Joint Replacement: Yes (LEFT KNEE, RIGHT KNEE) Oral Surgery: Yes (NASAL FX SX X 2; SINSUS SX, T & A) Pacemaker: No Tonsillectomy: Yes Other Surgery: Yes Social History Alcohol Use: No Tobacco Use: No Substance Use: No Allergies-Medications (Allergen,Severity, Reaction): Coded Allergies: aspirin (Unverified Allergy, Severe, VOMITING, 3/3/18) Reported Meds & Prescriptions Reported Meds & Active Scripts Active Prednisone (21) 10 mg tab Dose Pack (Prednisone) 10 Mg Pack 10 Mg PO DIRECTED Neurontin (Gabapentin) 300 Mg Cap 300 Mg PO TID Robaxin (Methocarbamol) 500 Mg Tab 1,000 Mg PO TID PRN Oxycodone (Oxycodone HCl) 10 Mg Tab 10 Mg PO Q6HR PRN Reported Enalapril (Enalapril Maleate) 2.5 Mg Tab 2.5 Mg PO DAILY Metformin (Metformin HCl) 500 Mg Tab 500 Mg PO BIDPC With meals Propranolol (Propranolol HCl) 60 Mg Tab 30 Mg PO Q12HR Flexeril (Cyclobenzaprine HCl) 10 Mg Tab 10 Mg PO TID Review of Systems General / Constitutional: No: Fever, Chills Eyes: No: Blurred Vision HENT: No: Headaches, Lightheadedness Cardiovascular: No: Chest Pain or Discomfort Respiratory: No: Shortness of Breath Gastrointestinal: No: Nausea, Vomiting Genitourinary: No: Incontinence Musculoskeletal: Positive: Pain Skin: No Change in Pigmentation Neurologic: No: Weakness, Sensory Disturbance Physical Exam Narrative GENERAL: Awake and alert, in no acute distress. SKIN: Focused skin assessment warm/dry. No wounds or signs of infection. HEAD: Atraumatic. Normocephalic. EYES: Pupils equal and round. No scleral icterus. EOMI. ENT: Mucous membranes pink and moist. CARDIOVASCULAR: Regular rate and rhythm. No murmur appreciated. RESPIRATORY: No accessory muscle use. Clear to auscultation. Breath sounds equal bilaterally. MUSCULOSKELETAL: No obvious deformities. No clubbing. No cyanosis. No edema. Tender to palpation of the lumbar spine. Straight leg raise on the right causes pain. NEUROLOGICAL: Awake and alert. No obvious cranial nerve deficits. Motor grossly within normal limits. Normal speech. Good strength in both legs. No saddle anesthesia. Data Data Last Documented VS Vital Signs Date Time Temp Pulse Resp B/P (MAP) Pulse Ox O2 Delivery O2 Flow Rate FiO2 12/10/17 19:10 97.6 80 20 141/65 (90) 97 Room Air Orders Orders Spine, Lumbar Comp W/Obliq (12/10/17 ) Diazepam (Valium) (12/10/17 21:15) Ketorolac Inj (Toradol Inj) (3/3/18 21:15) MDM Medical Decision Making Medical Screen Exam Complete: Yes Emergency Medical Condition: Yes Medical Record Reviewed: Yes Differential Diagnosis chronic pain vs sciatica vs radiculopathy Narrative Course Patient is a 62 year old female who comes in complaining of chronic back pain, requesting to be admitted to go to rehab. Patient has no new symptoms or injuries. XR performed shows degenerative changes. Patient has appointments with her doctors to manage this. Case management came to speak with her and explain they could not get her admitted to [facility]. She was given Toradol and Valium with improvement of her symptoms. She is advised to call her doctor and see if he can arrange for rehab for her on Tuesday. Given prescriptions for medications. Advised to return at any time for any worsening symptoms. Diagnosis Primary Impression: Chronic back pain Qualified Codes: M54.5 - Low back pain; G89.29 - Other chronic pain Patient Instructions: Chronic Back Pain (ED), General Instructions, Lower Back Exercises (ED) Additional Instructions: Follow up with your doctors on Tuesday and see if they can help arrange for you to go to [facility], or call them and see if they have any space. Take pain medicine as needed, be careful as it may make you drowsy and more prone to falling. Return to the ED as needed for any worsening symptoms. Scripts Ketorolac (Ketorolac) 10 Mg Tab 10 MG PO Q6HR Y for PAIN, #12 TAB 0 Refills Prov: Sharri Evans MD 12/10/17 Diazepam (Valium) 5 Mg Tab 5 MG PO HS Y for MUSCLE SPASM, #7 TAB 0 Refills Prov: Sharri Evans MD 12/10/17 Disposition: 01 DISCHARGE HOME Condition: Stable Sharri Evans MD Dec 10, 2017 22:25
== END 2017-12-10 23:14 | disposition home or self-care (01) ==
LOC: NEPD 18:48
DX: M54.5 Low back pain (principal); G89.29 Other chronic pain; M19.90 Unspecified osteoarthritis, unspecified site; F41.9 Anxiety disorder, unspecified; J44.9 Chronic obstructive pulmonary disease, unspecified; E11.9 Type 2 diabetes mellitus without complications; I10 Essential (primary) hypertension; Z88.6 Allergy status to analgesic agent; Z79.899 Other long term (current) drug therapy
CPT/HCPCS: 72110; 96372; 99283; J1885

== ENCOUNTER 2018-01-01 21:05 | Emergency (ER) | payer OTHER ==
[~2018-01-01] VITALS: Ht 154.9 cm; Wt 68.5 kg
[~2018-01-01 21:05] MED LIST changes: +CYCL10TA PO; +DIAZ5 PO; +KETO10 PO; -LIDO1ADH4 T-DERMAL
[2018-01-01 21:09] VITALS: BP 123/56; PULSE 71; RESP 18; TEMP 98.3; O2SAT 96
[2018-01-01] MEDS ORDERED: PROMETHAZINE INJ 25 MG/ML VIAL IM ONE (21:45)
[2018-01-01] MEDS ORDERED: DEXAMETHASONE SOD PHOS 4 MG/ML VIAL IM ONE (21:45)
[2018-01-01] MEDS ORDERED: MORPHINE SULFATE 8 MG/ML INJ IM ONE (21:45)
--- NOTE | 2018-01-01 21:45 | PD ---
HPI Chief Complaint: Back/ Neck Pain or Injury Time Seen by Provider: 21:24 Travel History International Travel<30 days: No Contact w/Intl Traveler<30days: No Traveled to known affect area: No History of Present Illness HPI The patient is a 62-year-old female who presents to the emergency department for acute exacerbation of chronic low back pain. The patient has a history of chronic low back pain that starts in the low back, goes across the sacroiliac, and radiates down the right leg to the right foot. She occasionally has numbness and tingling of the right foot but denies any weakness. She denies any urinary or fecal incontinence. She does have a history of chronic back pain and is followed by her pain interventionalists. The patient has been referred to physical therapy, however, states she only underwent 2-3 episodes of physical therapy. She also saw a neurosurgeon when she was at [facility] who recommended physical therapy prior to any surgical intervention. Symptoms are moderate, not alleviated with the narcotics that she has at home. The patient denies any nausea, vomiting, abdominal pain, fever, chills, sweats, or dysuria. PFSH Past Medical History Arthritis: Yes Asthma: No Autoimmune Disease: No Anxiety: Yes Depression: No Heart Rhythm Problems: No Cancer: No Cardiovascular Problems: Yes High Cholesterol: No Chest Pain: No Congestive Heart Failure: No COPD: Yes Diabetes: Yes Patient Takes Glucophage: Yes Diminished Hearing: No Endocrine: Yes Gastrointestinal Disorders: No Genitourinary: No Headaches: Yes Hepatitis: No Hiatal Hernia: No Hypertension: Yes Immune Disorder: No Kidney Stones: No Musculoskeletal: Yes (ARTHRITIS) Neurologic: Yes (MIGRAINES) Psychiatric: Yes (ANXIETY) Reproductive: No Respiratory: Yes (COPD) Immunizations Current: Yes Migraines: Yes Myocardial Infarction: No Renal Failure: No Sickle Cell Disease: No Sleep Apnea: No Thyroid Disease: No Ulcer: No Influenza Vaccination: Yes ?: Not Menopausal: Yes : 3 Para: 2 Miscarriage: 5 Tubal Ligation: Yes Past Surgical History Abdominal Surgery: No AICD: No Appendectomy: No Body Medical Devices: SCREW RIGHT KNEE Cardiac Surgery: No Cholecystectomy: No Genitourinary Surgery: No Gynecologic Surgery: Yes (TUBAL LIGATION) Insulin Pump: No Joint Replacement: Yes (LEFT KNEE, RIGHT KNEE) Oral Surgery: Yes (NASAL FX SX X 2; SINSUS SX, T & A) Pacemaker: No Tonsillectomy: Yes Other Surgery: Yes Social History Alcohol Use: No Tobacco Use: No Substance Use: No Allergies-Medications (Allergen,Severity, Reaction): Coded Allergies: aspirin (Unverified Allergy, Severe, VOMITING, 01/01/18) Reported Meds & Prescriptions Reported Meds & Active Scripts Active Ketorolac (Ketorolac Tromethamine) 10 Mg Tab 10 Mg PO Q6HR PRN Valium (Diazepam) 5 Mg Tab 5 Mg PO HS PRN Prednisone (21) 10 mg tab Dose Pack (Prednisone) 10 Mg Pack 10 Mg PO DIRECTED Neurontin (Gabapentin) 300 Mg Cap 300 Mg PO TID Robaxin (Methocarbamol) 500 Mg Tab 1,000 Mg PO TID PRN Oxycodone (Oxycodone HCl) 10 Mg Tab 10 Mg PO Q6HR PRN Reported Flexeril (Cyclobenzaprine HCl) 10 Mg Tab 10 Mg PO TID Enalapril (Enalapril Maleate) 2.5 Mg Tab 2.5 Mg PO DAILY Metformin (Metformin HCl) 500 Mg Tab 500 Mg PO BIDPC With meals Propranolol (Propranolol HCl) 60 Mg Tab 30 Mg PO Q12HR Review of Systems Except as stated in HPI: all other systems reviewed are Neg General / Constitutional: No: Fever Cardiovascular: No: Chest Pain or Discomfort Respiratory: No: Shortness of Breath Gastrointestinal: No: Nausea, Vomiting, Abdominal Pain Genitourinary: No: Dysuria, Incontinence Musculoskeletal: Positive: Pain, No: Weakness Neurologic: Positive: Paresthesia, Sensory Disturbance, No: Weakness Physical Exam Narrative GENERAL: Awake, alert, pleasant 62-year-old female who appears her stated age and is in no acute respiratory distress. SKIN: Focused skin assessment warm/dry. HEAD: Atraumatic. Normocephalic. EYES: No injection or drainage. GASTROINTESTINAL: Abdomen soft, non-tender, nondistended. No rebound tenderness. No guarding or rigidity. No suprapubic tenderness. Back: Tenderness across the sacroiliac bilaterally. Mild tenderness of the paravertebral muscles. MUSCULOSKELETAL: Well-healed scar over the right knee. Positive dorsalis pedal pulse. Plantar flexion of the right is 5 out of 5. Extension of the knee is 5 out of 5. Positive straight leg on the right at 45. Internal/external rotation of the hip does not exacerbate pain. NEUROLOGICAL: Awake and alert. No obvious cranial nerve deficits. Motor grossly within normal limits. Normal speech. Sensation is intact over the medial, lateral, and dorsal aspect of the right foot. PSYCHIATRIC: Appropriate mood and affect; insight and judgment normal. Data Data Last Documented VS Vital Signs Date Time Temp Pulse Resp B/P (MAP) Pulse Ox O2 Delivery O2 Flow Rate FiO2 01/01/18 21:09 98.3 71 18 123/56 (78) 96 Orders Orders Dexamethasone Inj (Decadron Inj) (01/01/18 21:45) Morphine Inj (Morphine Inj) (01/01/18 21:45) Promethazine Inj (Phenergan Inj) (01/01/18 21:45) [facility] Medical Decision Making Medical Screen Exam Complete: Yes Emergency Medical Condition: Yes Medical Record Reviewed: Yes Differential Diagnosis Differential diagnosis includes back pain with radiculopathy, spinal stenosis, herniated disc, lumbar ago, AAA, chronic pain. Narrative Course The patient has had previous imaging with CT lumbar spine and x-rays revealing severe degenerative changes and possible spinal stenosis. The patient has no incontinence or weakness, does have paresthesias in the right leg with radiculopathy. Patient is advised to follow-up with her pain interventionalists , she may benefit from outpatient physical therapy and/or evaluation by neurosurgery. Diagnosis Primary Impression: Radiculopathy of lumbosacral region Patient Instructions: General Instructions, Narcotic given in the ED Additional Instructions: Follow-up with your pain interventionalists. You may benefit from outpatient follow-up with physical therapy and/or neurosurgery. Return if symptoms worsen or progress. Med/Other Pt SpecificInfo: No Change to Meds Disposition: 01 DISCHARGE HOME Condition: Stable Mihir Hewitt MD Jan 01, 2018 21:45
== END 2018-01-01 22:41 | disposition home or self-care (01) ==
LOC: PHEFT 21:05
DX: M54.17 Radiculopathy, lumbosacral region (principal); R20.0 Anesthesia of skin; R20.2 Paresthesia of skin; M19.90 Unspecified osteoarthritis, unspecified site; F41.9 Anxiety disorder, unspecified; J44.9 Chronic obstructive pulmonary disease, unspecified; E11.9 Type 2 diabetes mellitus without complications; I10 Essential (primary) hypertension; Z79.899 Other long term (current) drug therapy
CPT/HCPCS: 96372; 99284; J1100; J2270; J2550

== ENCOUNTER 2018-01-05 12:44 | Emergency (ER) | payer OTHER ==
[2018-01-05 12:50] VITALS: BP 95/56; PULSE 95; RESP 20; RESP 56; TEMP 97.9; O2SAT 95
--- NOTE | 2018-01-05 14:47 | PD ---
HPI Chief Complaint: Musculoskeletal Complaint Time Seen by Provider: 14:02 Travel History International Travel<30 days: No Contact w/Intl Traveler<30days: No Traveled to known affect area: No History of Present Illness HPI This is a 62-year-old female here with right-sided sciatica pain. Patient has a history of chronic back/sciatica pain. She is currently in pain management. She takes oxycodone QID. She denies recent injury or trauma. No fever chills. No incontinence. No paresthesia or weakness of the extremity. She has a follow-up appointment with pain management on Tuesday. She was seen 4 days ago in the ED for same complaint. She is requesting "the same shot" that she was given at the last visit. Pain is aggravated by movement and slightly related to stress. PFSH Past Medical History Arthritis: Yes Asthma: No Autoimmune Disease: No Anxiety: Yes Depression: No Heart Rhythm Problems: No Cancer: No Cardiovascular Problems: Yes High Cholesterol: No Chest Pain: No Congestive Heart Failure: No COPD: Yes Diabetes: Yes Patient Takes Glucophage: Yes Diminished Hearing: No Endocrine: Yes Gastrointestinal Disorders: No Genitourinary: No Headaches: Yes Hepatitis: No Hiatal Hernia: No Hypertension: Yes Immune Disorder: No Kidney Stones: No Musculoskeletal: Yes (ARTHRITIS) Neurologic: Yes (MIGRAINES) Psychiatric: Yes (ANXIETY) Reproductive: No Respiratory: Yes (COPD) Immunizations Current: Yes Migraines: Yes Myocardial Infarction: No Renal Failure: No Sickle Cell Disease: No Sleep Apnea: No Thyroid Disease: No Ulcer: No Tetanus Vaccination: Unknown Influenza Vaccination: Yes Menopausal: Yes : 3 Para: 2 Miscarriage: 5 Tubal Ligation: Yes Past Surgical History Abdominal Surgery: No AICD: No Appendectomy: No Body Medical Devices: SCREW RIGHT KNEE Cardiac Surgery: No Cholecystectomy: No Genitourinary Surgery: No Gynecologic Surgery: Yes (TUBAL LIGATION) Insulin Pump: No Joint Replacement: Yes (LEFT KNEE, RIGHT KNEE) Oral Surgery: Yes (NASAL FX SX X 2; SINSUS SX, T & A) Pacemaker: No Tonsillectomy: Yes Other Surgery: Yes Social History Alcohol Use: No Tobacco Use: No Substance Use: No Allergies-Medications (Allergen,Severity, Reaction): Coded Allergies: aspirin (Unverified Allergy, Severe, VOMITING, 01/01/18) Reported Meds & Prescriptions Reported Meds & Active Scripts Active Ketorolac (Ketorolac Tromethamine) 10 Mg Tab 10 Mg PO Q6HR PRN Valium (Diazepam) 5 Mg Tab 5 Mg PO HS PRN Prednisone (21) 10 mg tab Dose Pack (Prednisone) 10 Mg Pack 10 Mg PO DIRECTED Neurontin (Gabapentin) 300 Mg Cap 300 Mg PO TID Robaxin (Methocarbamol) 500 Mg Tab 1,000 Mg PO TID PRN Oxycodone (Oxycodone HCl) 10 Mg Tab 10 Mg PO Q6HR PRN Reported Flexeril (Cyclobenzaprine HCl) 10 Mg Tab 10 Mg PO TID Enalapril (Enalapril Maleate) 2.5 Mg Tab 2.5 Mg PO DAILY Metformin (Metformin HCl) 500 Mg Tab 500 Mg PO BIDPC With meals Propranolol (Propranolol HCl) 60 Mg Tab 30 Mg PO Q12HR Review of Systems Except as stated in HPI: all other systems reviewed are Neg General / Constitutional: No: Fever Eyes: No: Visual changes HENT: No: Headaches Cardiovascular: No: Chest Pain or Discomfort Respiratory: No: Shortness of Breath Gastrointestinal: No: Abdominal Pain Genitourinary: No: Dysuria Musculoskeletal: Positive: Pain (right low back pain) Skin: No Rash Neurologic: No: Weakness Physical Exam Narrative GENERAL: Alert female who appears older than her stated age. She is resting comfortably on the stretcher. SKIN: Warm and dry. HEAD: Normocephalic. EYES: No scleral icterus. No injection or drainage. NECK: Supple, trachea midline. CARDIOVASCULAR: Regular rate and rhythm. No murmur appreciated RESPIRATORY: Breath sounds equal bilaterally. No accessory muscle use. GASTROINTESTINAL: Abdomen soft, non-tender, nondistended. MUSCULOSKELETAL: No cyanosis, or edema. Normal strength and sensation in lower extremities. Patient is ambulating with a steady gait. BACK: +TTP right sacroiliac joint. No midline spine tenderness. Without obvious deformity. No CVA tenderness. + R straight leg raise. Data Data Last Documented VS Vital Signs Date Time Temp Pulse Resp B/P (MAP) Pulse Ox O2 Delivery O2 Flow Rate FiO2 01/05/18 12:50 97.9 95 20 95/56 (69) 95 Orders Orders Ketorolac Inj (Toradol Inj) (01/05/18 15:00) [facility] Medical Decision Making Medical Screen Exam Complete: Yes Emergency Medical Condition: Yes Differential Diagnosis Acute on chronic pain, sciatica, other Narrative Course 62-year-old female here with acute on chronic right-sided sciatica pain. No recent injury or trauma. She had a negative lumbar x-ray earlier this month. She has a normal neurologic exam. She does not appear in any distress. She is requesting a shot of morphine. She has a follow-up appointment with pain management and Tuesday. She was given a shot of Toradol and observed ambulating with a steady gait around the ED. She is stable and ready for discharge. Diagnosis Primary Impression: Sciatica Qualified Codes: M54.31 - Sciatica, right side Referrals: Primary Care Physician Additional Instructions: Taking her medication as directed. Follow-up with her pain management doctor at your Appointment. Disposition: DISCHARGE HOME Condition: Stable Juli Qureshi Jan 05, 2018 14:47
[2018-01-05] MEDS ORDERED: KETOROLAC TROMETHAMINE 60 MG/2 ML (IM) VIAL IM ONE (15:00)
== END 2018-01-05 15:03 | disposition home or self-care (01) ==
LOC: PHEFT 12:44
DX: M54.31 Sciatica, right side (principal)
CPT/HCPCS: 96372; 99283; J1885

== ENCOUNTER 2018-02-16 15:10 | Emergency (ER) | payer OTHER ==
[~2018-02-16] VITALS: Ht 156.2 cm; Wt 65.2 kg
[2018-02-16 15:42] VITALS: BP 107/54; PULSE 68; RESP 14; TEMP 98; O2SAT 98
[2018-02-16 17:54] VITALS: BP 151/83; PULSE 75; RESP 17; O2SAT 97
--- NOTE | 2018-02-16 18:18 | PD ---
HPI Chief Complaint: Fall Time Seen by Provider: 17:52 Travel History International Travel<30 days: No Contact w/Intl Traveler<30days: No Traveled to known affect area: No History of Present Illness HPI 62-year-old female with PMH of DM, HTN, sciatica, chronic back pain and chronic right hip pain presents the ED for evaluation of 10/10 right hip pain. Onset this afternoon after the patient was caught in an automatic door. She states that when someone opened the door she fell to the ground. She denies hitting her head or loss of consciousness in the accident. She states that she has been minimally weightbearing since then. She does not take blood thinners. She denies numbness, tingling, limitations to range of motion of the extremity. She denies incontinence, saddle anesthesia. She states that she saw neurosurgeon and was evaluated for possible surgery. She takes oxycodone daily. Last dose around noon. She normally ambulates with a walker. PFSH Past Medical History Arthritis: Yes Asthma: No Autoimmune Disease: No Anxiety: Yes Depression: No Heart Rhythm Problems: No Cancer: No Cardiovascular Problems: Yes High Cholesterol: No Chest Pain: No Congestive Heart Failure: No COPD: Yes Diabetes: Yes Patient Takes Glucophage: Yes Diminished Hearing: No Endocrine: Yes Gastrointestinal Disorders: No Genitourinary: No Headaches: Yes Hepatitis: No Hiatal Hernia: No Hypertension: Yes Immune Disorder: No Kidney Stones: No Musculoskeletal: Yes (ARTHRITIS, CHRONIC LOWER BACK PAIN AND HIP PAIN ) Psychiatric: Yes (ANXIETY) Reproductive: No Respiratory: Yes (COPD) Immunizations Current: Yes Migraines: Yes Myocardial Infarction: No Renal Failure: No Sickle Cell Disease: No Sleep Apnea: No Thyroid Disease: No Ulcer: No Tetanus Vaccination: Unknown Influenza Vaccination: Yes Menopausal: Yes : 3 Para: 2 Miscarriage: 5 Tubal Ligation: Yes Past Surgical History Abdominal Surgery: No AICD: No Appendectomy: No Body Medical Devices: SCREW RIGHT KNEE Cardiac Surgery: No Cholecystectomy: No Genitourinary Surgery: No Gynecologic Surgery: Yes (TUBAL LIGATION) Insulin Pump: No Joint Replacement: Yes (LEFT KNEE, RIGHT KNEE) Oral Surgery: Yes (NASAL FX SX X 2; SINUSES SX,) Pacemaker: No Tonsillectomy: Yes Other Surgery: Yes Social History Alcohol Use: No (quit) Tobacco Use: No (quit) Substance Use: No Allergies-Medications (Allergen,Severity, Reaction): Coded Allergies: aspirin (Unverified Allergy, Severe, VOMITING, 02/16/18) Reported Meds & Prescriptions Reported Meds & Active Scripts Active Prednisone (21) 10 mg tab Dose Pack (Prednisone) 10 Mg Pack 10 Mg PO DIRECTED Neurontin (Gabapentin) 300 Mg Cap 300 Mg PO TID Oxycodone (Oxycodone HCl) 10 Mg Tab 10 Mg PO Q6HR PRN Reported Flexeril (Cyclobenzaprine HCl) 10 Mg Tab 10 Mg PO TID Enalapril (Enalapril Maleate) 2.5 Mg Tab 2.5 Mg PO DAILY Metformin (Metformin HCl) 500 Mg Tab 500 Mg PO BIDPC With meals Propranolol (Propranolol HCl) 60 Mg Tab 30 Mg PO Q12HR Review of Systems Except as stated in HPI: all other systems reviewed are Neg Physical Exam Narrative GENERAL: Well-nourished, well-developed white female no acute distress. SKIN: Focused skin assessment warm/dry. HEAD: Normocephalic. EYES: No scleral icterus. No injection or drainage. NECK: Supple, trachea midline. No JVD or lymphadenopathy. CARDIOVASCULAR: Regular rate and rhythm without murmurs, gallops, or rubs. RESPIRATORY: Breath sounds clear and equal bilaterally. No accessory muscle use. GASTROINTESTINAL: Abdomen soft, non-tender, nondistended. Active bowel sounds. MUSCULOSKELETAL: No cyanosis, or edema. FOCUSED RIGHT LOWER EXTREMITY EXAM: 2+ DP pulse. Foot is held externally rotated with no foreshortening noted. No pain elicited with palpation of the anterior lateral hip. No pain elicited with internal and external rotation. Neurovascularly intact distally. BACK: Positive midline tenderness to palpation of the lumbar spine without obvious deformity. No CVA tenderness. Data Data Last Documented VS Vital Signs Date Time Temp Pulse Resp B/P (MAP) Pulse Ox O2 Delivery O2 Flow Rate FiO2 02/16/18 22:56 02/16/18 17:54 75 17 97 Room Air 02/16/18 15:42 98.0 Orders Orders Spine, Lumbar - Ltd (Ap & Lat) (02/16/18 18:11) Hip, Uni(Ap&Lat) W Ap Pelvis (02/16/18 18:11) Acetamin-Hydrocod 325-10 Mg (Silas 10-32 (02/16/18 18:30) Ct Hip W/O Contrast (02/16/18 ) Ed Discharge Order (02/16/18 22:45) [facility] Medical Decision Making Medical Screen Exam Complete: Yes Emergency Medical Condition: Yes Differential Diagnosis Acute exacerbation of chronic pain back pain versus sciatica versus vertebral fracture versus hip fracture versus hip contusion versus bursitis versus other Narrative Course 62-year-old female with PMH of DM, HTN, sciatica, chronic back pain and chronic right hip pain presents the ED for evaluation of 07/19 right hip pain. Onset this afternoon after the patient was caught in an automatic door. She states that when someone opened the door she fell to the ground. No hitting of head or LOC. She states that she has been minimally weightbearing since then. She does not take blood thinners. No red flag symptoms. She takes oxycodone daily. Last dose around noon. She normally ambulates with a walker. Vitals reviewed. On exam the right lower extremity is held in external rotation. No foreshortening noted. No tenderness to palpation of the anterior lateral hip. No pain elicited with internal and external rotation. Patient is able to flex and extend the hip joint without difficulty. She does have tenderness to palpation in the lower midline spine. Patient was administered her evening dose of 10 mg Silas. X-rays of the lumbar spine and hip reveal no acute bony injury. Patient was walk tested, able to ambulate to the bathroom. She came out of the bathroom crying that she was in pain. CT of the hip was ordered which revealed no acute bony injury. Patient has exacerbated her chronic low back pain and hip pain/sciatica. She is instructed to return to normal, gentle activity as tolerated, follow with her primary care or neurosurgeon for further evaluation. She is stable and discharged home. Diagnosis Primary Impression: Fall from standing Qualified Codes: W19.XXXA - Unspecified fall, initial encounter Additional Impressions: Acute exacerbation of chronic low back pain Hip pain, right Referrals: Vika Figueroa MD Additional Instructions: Rest, hydrate. Resume normal, gentle activities as tolerated. No heavy weight lifting or strenuous physical activity until cleared by the orthopedist. Resume at home medications as previously prescribed. Follow-up with Dr. Ramirez. Return to the ED for worsening symptoms or any urgent or emergent medical condition. Med/Other Pt SpecificInfo: Prescription(s) given Disposition: 01 DISCHARGE HOME Condition: Robyn Giles February 16, 2018 18:17
[2018-02-16] MEDS ORDERED: ACETAMINOPHEN/HYDROcodone 325 MG/10 MG TAB PO ONE (18:30)
--- NOTE | 2018-02-16 18:43 | RADRPT ---
EXAM DATE/TIME: 02/16/2018 18:28 [facility] COMPARISON: HIP RIGHT (AP&LAT 2/3VWS) W AP PELVIS, October 23, 2017, 13:58. INDICATIONS : Right hip pain after fall. MEDICAL HISTORY : None. SURGICAL HISTORY : None. ENCOUNTER: Initial ACUITY: 1 day PAIN SCORE: 10/10 LOCATION: Right hip. FINDINGS: Examination of the right hip was performed with AP Pelvis. Mild degenerative changes. No fracture. T he acetabulum is grossly intact. CONCLUSION: No acute fracture right hip. Mild degenerative changes Elmo Munoz MD on February 16, 2018 at 18:40 Board Certified Radiologist. This report was verified electronically.
--- NOTE | 2018-02-16 18:44 | RADRPT ---
EXAM DATE/TIME: 02/16/2018 18:28 [facility] COMPARISON: SPINE LUMBAR LTD (AP & LAT), September 21, 2016, 22:58. INDICATIONS : Lower back pain after fall. MEDICAL HISTORY : None. SURGICAL HISTORY : None. ENCOUNTER: Initial ACUITY: 1 day PAIN SCORE: 10/10 LOCATION: Lower back. FINDINGS: Two view examination was performed. There are five non-rib bearing vertebral bodies. The vertebral bodies are in normal alignment without evidence of subluxation or scoliosis. Mild degenerative change s.. The pedicles are intact. Bony mineralization is normal. No fracture is identified. CONCLUSION: Mild degenerative changes no fracture. Elmo Munoz MD on February 16, 2018 at 18:41 Board Certified Radiologist. This report was verified electronically.
--- NOTE | 2018-02-16 22:29 | RADRPT ---
EXAM DATE/TIME: 02/16/2018 21:55 [facility] COMPARISON: HIP RIGHT (AP&LAT 2/3VWS) W AP PELVIS, February 16, 2018, 18:28. INDICATIONS : Right hip pain from fall. RADIATION DOSE: 35.87 CTDIvol (mGy) MEDICAL HISTORY : Arthritis. SURGICAL HISTORY : None. ENCOUNTER: Initial ACUITY: 1 day PAIN SCALE: 7/10 LOCATION: Right Hip TECHNIQUE: Volumetric scanning of the hip was performed. Using automated exposure control and adjustment of the mA and/or kV according to patient size, radiation dose was kept as low as reasonably achievable to o btain optimal diagnostic quality images. DICOM format image data is available electronically for rev iew and comparison. FINDINGS: BONES: No evidence of fracture. Alignment is within normal limits. Right hip is intact. Mild osteoarthritis . No fracture. There is degenerative changes of the right SI joint and lumbosacral junction JOINTS: No evidence of joint narrowing or effusion. SOFT TISSUES: Muscles, tendons and neurovascular structures are grossly unremarkable. No evidence of mass, organize d fluid collection, or foreign body. CONCLUSION: 1. No acute fracture right hip. Elmo Munoz MD on February 16, 2018 at 22:25 Board Certified Radiologist. This report was verified electronically.
== END 2018-02-16 23:10 | disposition home or self-care (01) ==
LOC: NEPC 15:10
DX: M54.5 Low back pain (principal); M25.551 Pain in right hip; G89.29 Other chronic pain; E11.9 Type 2 diabetes mellitus without complications; I10 Essential (primary) hypertension; M19.90 Unspecified osteoarthritis, unspecified site; F41.9 Anxiety disorder, unspecified; J44.9 Chronic obstructive pulmonary disease, unspecified; Z79.899 Other long term (current) drug therapy
CPT/HCPCS: 72100; 73502; 73700; 99284

== ENCOUNTER 2018-03-10 14:48 | Emergency (ER) | payer OTHER ==
[~2018-03-10] VITALS: Ht 154.9 cm; Wt 65.0 kg
[~2018-03-10 14:48] MED LIST changes: -DIAZ5 PO; -KETO10 PO; -ROBA500T PO
[2018-03-10 14:55] VITALS: BP 130/63; PULSE 96; RESP 20; TEMP 98.7; O2SAT 96
[2018-03-10] MEDS ORDERED: predniSONE 20 MG TAB PO ONE (15:45)
[2018-03-10] MEDS ORDERED: PRED20 PO (16:48)
--- NOTE | 2018-03-10 16:52 | PD ---
HPI Chief Complaint: Facial Pain or Swelling Time Seen by Provider: 15:31 Travel History International Travel<30 days: No Contact w/Intl Traveler<30days: No Traveled to known affect area: No History of Present Illness HPI The patient was seen and examined in the presence of the nurse. This patient complains of a painful area in her right upper lip. She says it was swollen when she woke up this morning. The swelling is improved but she still hurts they are a little bit. She denies any specific lesion. No fever. No other findings or symptoms of allergic reaction such as rash or hives etc. She wears dentures but does not think they have anything to do with the problem. Duration one day PFSH Past Medical History Arthritis: Yes Asthma: No Autoimmune Disease: No Anxiety: Yes Depression: No Heart Rhythm Problems: No Cancer: No Cardiovascular Problems: Yes High Cholesterol: No Chest Pain: No Congestive Heart Failure: No COPD: Yes Diabetes: Yes Patient Takes Glucophage: Yes Diminished Hearing: No Endocrine: Yes Gastrointestinal Disorders: No Genitourinary: No Headaches: Yes Hepatitis: No Hiatal Hernia: No Heparin Induced Thrombocytopen: No Hypertension: Yes Immune Disorder: No Kidney Stones: No Medical other: No Musculoskeletal: Yes (ARTHRITIS, CHRONIC LOWER BACK PAIN AND HIP PAIN ) Psychiatric: Yes (ANXIETY) Reproductive: No Respiratory: Yes (COPD) Immunizations Current: Yes Migraines: Yes Myocardial Infarction: No Renal Failure: No Sickle Cell Disease: No Sleep Apnea: No Thyroid Disease: No Ulcer: No Menopausal: Yes : 3 Para: 2 Miscarriage: 5 Tubal Ligation: Yes Past Surgical History Abdominal Surgery: No AICD: No Appendectomy: No Body Medical Devices: SCREW RIGHT KNEE Cardiac Surgery: No Cholecystectomy: No Genitourinary Surgery: No Gynecologic Surgery: Yes (TUBAL LIGATION) Insulin Pump: No Joint Replacement: Yes (LEFT KNEE, RIGHT KNEE) Oral Surgery: Yes (NASAL FX SX X 2; SINUSES SX,) Pacemaker: No Tonsillectomy: Yes Other Surgery: Yes Social History Alcohol Use: No (quit) Tobacco Use: No (quit) Substance Use: No Allergies-Medications (Allergen,Severity, Reaction): Coded Allergies: aspirin (Unverified Allergy, Severe, VOMITING, 02/16/18) Reported Meds & Prescriptions Reported Meds & Active Scripts Active Prednisone 20 Mg Tab 40 Mg PO DAILY Take 40 mg (2 tablets) daily for 5 days Prednisone (21) 10 mg tab Dose Pack (Prednisone) 10 Mg Pack 10 Mg PO DIRECTED Neurontin (Gabapentin) 300 Mg Cap 300 Mg PO TID Oxycodone (Oxycodone HCl) 10 Mg Tab 10 Mg PO Q6HR PRN Reported Flexeril (Cyclobenzaprine HCl) 10 Mg Tab 10 Mg PO TID Enalapril (Enalapril Maleate) 2.5 Mg Tab 2.5 Mg PO DAILY Metformin (Metformin HCl) 500 Mg Tab 500 Mg PO BIDPC With meals Propranolol (Propranolol HCl) 60 Mg Tab 30 Mg PO Q12HR Review of Systems General / Constitutional: No: Fever HENT: No: Headaches Cardiovascular: No: Chest Pain or Discomfort Respiratory: No: Cough Physical Exam Narrative GENERAL: Well-nourished, well-developed patient in no apparent distress. SKIN: Focused skin assessment reveals no rash and nodules. Skin is Warm and dry. HEAD: Atraumatic. Normocephalic. EYES: Pupils equal and round. No scleral icterus. No injection or drainage. ENT: No nasal bleeding or discharge. Mucous membranes pink and moist. I do not see any visible swelling of the lips or tongue or uvula. I do not see lesions there. She says that there is a bit of swelling on the right side of the upper lip. I do not see much there. It does not look like angioedema NECK: Trachea midline. No JVD. CARDIOVASCULAR: Regular rate and rhythm. No murmur appreciated. RESPIRATORY: No accessory muscle use. Clear to auscultation. Breath sounds equal bilaterally. GASTROINTESTINAL: Abdomen soft, non-tender, nondistended. Hepatic and splenic margins not palpable. MUSCULOSKELETAL: No obvious deformities. No clubbing. No cyanosis. No edema. NEUROLOGICAL: Awake and alert. No obvious cranial nerve deficits. Motor grossly within normal limits. Normal speech. PSYCHIATRIC: Appropriate mood and affect; insight and judgment normal. Data Data Last Documented VS Vital Signs Date Time Temp Pulse Resp B/P (MAP) Pulse Ox O2 Delivery O2 Flow Rate FiO2 03/10/18 14:55 98.7 96 20 130/63 (85) 96 Orders Orders Prednisone (Deltasone) (03/10/18 15:45) [facility] Medical Decision Making Medical Screen Exam Complete: Yes Emergency Medical Condition: Yes Medical Record Reviewed: Yes Differential Diagnosis Blister, HSV, cellulitis, angioedema Narrative Course I have reviewed the patient's electronic medical record. Etiology of her symptoms is not entirely clear. I do not see any evidence of emergent condition. Patient has chronic pain and takes hydrocodone and muscle relaxers and seems a bit overmedicated but she is alert and functional. She keeps asking me for pain medication which I do not feel comfortable prescribing her. I gave her dose of prednisone and 3 days of prednisone on prescription Diagnosis Primary Impression: Upper lip pain Additional Impression: Swollen upper lip Additional Instructions: The patient was advised to follow up with their physician and return if they worsen. Med/Other Pt SpecificInfo: Prescription(s) given Scripts Prednisone (Prednisone) 20 Mg Tab 40 MG PO DAILY, #6 TAB 0 Refills Take 40 mg (2 tablets) daily for 5 days Prov: Cheo Mares MD 03/10/18 Disposition: 01 DISCHARGE HOME Condition: Stable Cheo Mares MD Mar 10, 2018 16:52
== END 2018-03-10 17:21 | disposition home or self-care (01) ==
LOC: NEPD 14:48
DX: R51 Headache (principal); R22.0 Localized swelling, mass and lump, head; M19.90 Unspecified osteoarthritis, unspecified site; F41.9 Anxiety disorder, unspecified; J44.9 Chronic obstructive pulmonary disease, unspecified; E11.9 Type 2 diabetes mellitus without complications; I10 Essential (primary) hypertension; Z87.891 Personal history of nicotine dependence; Z79.899 Other long term (current) drug therapy
CPT/HCPCS: 99283; J7512

== ENCOUNTER 2018-06-13 08:54 | Inpatient (IN) ==
[2018-06-13] MEDS ORDERED: Metoprolol Tartrate 25 MG Tablet PO SCH (09:36)
[2018-06-13] MEDS ORDERED: Chlorhexidine Gluconate 2% 1 Pack (2 Cloths) TOPICAL SCH (09:36)
[2018-06-13] MEDS ORDERED: Vancomycin Inj 1,000 MG in Sodium Chlor 0.9% Inj 250 ML IV.SIG SCH (10:00)
[2018-06-13] MEDS ORDERED: Sodium Chlor 0.9% Inj 500 ML IV.SIG SCH (10:00)
[2018-06-13] MEDS ORDERED: ceFAZolin 2 GM/NS 100 ML IV IV.SIG SCH ×2 (10:00)
[2018-06-13] MEDS ORDERED: Chlorhexidine 4% Topical 120 APPLIC/120 ML Bottle TOPICAL SCH (10:00)
[2018-06-13] MEDS ORDERED: Sodium Chlor 0.9% Inj 250 ML ONE (10:03)
[2018-06-13] MEDS ORDERED: Bupivacaine/Epinephrine Inj 0.25% 50 ML Vial ONE (10:16)
[2018-06-13] MEDS ORDERED: Gelatin Size 100 Topical Foam ONE (10:16)
[2018-06-13] MEDS ORDERED: Thrombin Topical Soln 5,000 UNIT Vial TOPICAL ONE (10:17)
[2018-06-13] MEDS ORDERED: Propofol Inj 500 MG/50 ML Vial ONE ×2 (10:28→16:47)
[2018-06-13] MEDS ORDERED: Esmolol Bolus Inj 100 MG/10 ML Vial IV.PUSH ONE (10:39)
[2018-06-13] MEDS ORDERED: Sodium Chlor 0.9% Inj 500 ML IV.SIG ONE (10:39)
[2018-06-13] MEDS ORDERED: Lidocaine PF 1% Inj 5 ML Syringe INFILTRATN ONE (10:39)
[2018-06-13] MEDS ORDERED: Phenylephrine/NS 1000 MCG/10ML Syringe IV.PUSH ONE (10:39)
[2018-06-13] MEDS ORDERED: ceFAZolin 2 GM Premix Inj 2 GM/50 ML PIGGYBACK IV.SIG ONE (10:41)
[2018-06-13] MEDS ORDERED: Heparin - SQ 10,000 UNITS/ML Vial ONE (10:55)
[2018-06-13] MEDS ORDERED: Ketamine Inj 500 MG/10 ML Vial ONE (10:57)
[2018-06-13 14:10] LABS: ABG Base Excess 0.3 mmol/L (-2-2); ABG PCO2 30 mmHg (38-42); ABG PO2 255 mmHG (61-120)
[2018-06-13 15:32] LABS: ABG Base Excess 0.2 mmol/L (-2-2); ABG PCO2 31 mmHg (38-42); ABG PO2 266 mmHG (61-120)
[2018-06-13 16:11] LABS: ABG PCO2 28 mmHg (38-42); ABG PO2 256 mmHG (61-120)
[2018-06-13] MEDS ORDERED: Albumin Human 5% Inj 250 ML IV.SIG ONE (16:19)
[2018-06-13 16:36] LABS: Baso % (Auto) 0.6 % (0.0-2.0); Eos # (Auto) 0.1 th/mm3 (0.0-0.4); Eos % (Auto) 1.1 % (0.0-4.0); Hematocrit 25.4 % (35.0-46.0); Hemoglobin 8.7 gm/dL (11.6-15.3); Lymph % (Auto) 15.9 % (9.0-44.0); Mean Corpuscular HGB Conc 34.5 % (32.0-36.0); Mean Corpuscular Hemoglobin 29.1 pg (27.0-34.0); Mean Corpuscular Volume 84.3 fL (80.0-100.0); Mean Platelet Volume 7.1 fL (7.0-11.0); Mono # (Auto) 0.5 th/mm3 (0.0-0.9); Mono % (Auto) 7.3 % (0.0-8.0); Neut # (Auto) 4.7 th/mm3 (1.8-7.7); Neut % (Auto) 75.1 % (16.0-70.0); Platelet Count 230 th/mm3 (150-450); Red Blood Count 3.01 mil/mm3 (4.00-5.30); Red Cell Distribution Width 13.3 % (11.6-17.2); White Blood Count 6.3 th/mm3 (4.0-11.0)
[2018-06-13] MEDS ORDERED: fentaNYL Citrate Inj 100 MCG/2 ML Ampul ONE ×2 (17:00→18:26)
[2018-06-13] MEDS ORDERED: Bisacodyl 10 MG Supp RECTAL PRN (17:53)
[2018-06-13] MEDS ORDERED: Aluminum/Magnesium/Simethacone Susp 30 ML UDC PO PRN (17:53)
[2018-06-13] MEDS ORDERED: Post-op Orders (for Pharmacy) OTHER STA (17:53)
--- NOTE | 2018-06-13 17:53 | P.BOP ---
Date of procedure: 06/13/18 Procedure: L4-L5 laminectomy, facetectomy and foraminotomy L4-L5 combined posterolateral and interbody fusion L4-L5 instrumentation with bilateral pedicle screws Implants: Depuy Anesthesia: GETA Surgeon: Vika Figueroa MD Estimated blood loss (mL): 1,100 Pathology: none sent Condition: stable (f) Disposition: PACU
--- NOTE | 2018-06-13 17:55 | XR ---
EXAM DATE: 06/13/2018 5:53 PM EDT AGE/SEX: 62 years / Female INDICATIONS: L4-5 Posterior lumbar fusion. CLINICAL DATA: This is the patient's initial encounter. Patient reports that signs and symptoms have been present for 1 day and indicates a pain score of Nonresponsive. MEDICAL/SURGICAL HISTORY: Hypertension. Diabetes mellitus type II. Chronic obstructive pulmon landon disease. Tubal ligation. COMPARISON: No prior exams available for comparison. FINDINGS: Status post lumbar spinal surgery with fusion at L5-S1. There is good alignment of the lumbar spine a nd fusion. The hardware is grossly intact. CONCLUSION: Good position and alignment on this postoperative study. Electronically signed by: Saqib Zamora MD 06/13/2018 5:54 PM EDT
[2018-06-13 19:31] LABS: Hemoglobin 8.6 gm/dL (11.6-15.3); Mean Corpuscular HGB Conc 33.2 % (32.0-36.0); Mean Corpuscular Hemoglobin 28.3 pg (27.0-34.0); Mean Corpuscular Volume 85.3 fL (80.0-100.0); Mean Platelet Volume 7.9 fL (7.0-11.0); Platelet Count 278 th/mm3 (150-450); Red Blood Count 3.05 mil/mm3 (4.00-5.30); Red Cell Distribution Width 13.6 % (11.6-17.2); White Blood Count 8.7 th/mm3 (4.0-11.0)
[2018-06-13] MEDS ORDERED: *morphine SULFATE 4 MG/ML PERIprocedure ONLY ONE (19:59)
[2018-06-13] MEDS ORDERED: *Meperidine Inj 25 MG/ML Vial PERIprocedural Use ONLY ONE (20:07)
[2018-06-13] MEDS ORDERED: PROPRANOLOL PO SCH (21:00)
[2018-06-13] MEDS: oxyCODONE/Acetaminophen 10/325 Tablet PO PRN (22:16)
[2018-06-13] MEDS: Propranolol 10 MG Tablet PO SCH (22:17)
[2018-06-13] MEDS: Multivitamin/Minerals Therapeutic Tablet PO SCH (22:18)
[2018-06-14] MEDS: Morphine Inj 4 MG/ML Vial IV.PUSH PRN ×3 (00:07→09:57)
[2018-06-14] MEDS ORDERED: Morphine Inj 4 MG/ML Vial IV.PUSH ONE (01:04)
--- NOTE | 2018-06-14 07:17 | P.PNOP ---
Subjective Interval history: Patient uncooperative with exam. Groaning but will not answer questions and then falls asleep. Physical Exam Vital signs: Vital Signs 06/13/18 09:15 06/13/18 18:10 06/13/18 18:30 Temperature 98.2 F 99.1 F Pulse Rate 66 112 H 104 H Respiratory Rate 20 18 18 Blood Pressure 136/69 115/57 L 104/60 Pulse Oximetry 96 100 100 06/13/18 18:45 06/13/18 19:00 06/13/18 19:15 Temperature Pulse Rate 108 H 111 H 110 H Respiratory Rate 18 18 18 Blood Pressure 111/58 L 109/55 L 101/58 L Pulse Oximetry 100 100 100 06/13/18 19:30 06/13/18 20:16 06/13/18 21:23 Temperature 99.1 F 96.9 F L Pulse Rate 109 H 107 H 117 H Respiratory Rate 18 18 Blood Pressure 108/72 111/71 116/59 L Pulse Oximetry 100 100 96 06/13/18 22:00 06/13/18 23:33 06/14/18 04:00 Temperature 97.5 F L 97.9 F Pulse Rate 113 H 122 H Respiratory Rate 18 18 Blood Pressure 134/62 137/61 Pulse Oximetry 96 99 97 06/14/18 05:19 Temperature Pulse Rate Respiratory Rate Blood Pressure Pulse Oximetry 94 L Intake & Output 06/13/18 06/14/18 06/14/18 18:59 06:59 18:59 Intake Total 4533 / 4533 560 / 560 Output Total 1100 / 1100 800 / 800 Balance 3433 / 3433 -240 / -240 Weight 64 kg Intake: IV 200 / 200 Ancef Inj 1,000 MG In NS Inj 200 / 200 100 ML @ 200 mls/hr IV.SIG Q6H BONNY Rx#:[id number] Oral 360 / 360 Anesthesia Amount 3800 / 3800 Cell Saver Amount 733 / 733 Output: Estimated Blood Loss 1100 / 1100 Urine Amount (Catheter) 800 / 800 Indwelling Urethral Catheter 800 / 800 Wound Drainage 0 / 0 Lower Medial Back 0 / 0 Other: # Bowel Movements 0 Weight On Admission 64 kg Narrative: Awake but dozes off in between groans Dressing and HV in place. BLE: unable to fully assess as patient uncooperative, but spontaneously moving bilateral lower extremities. BCR - Urinary Catheter Management Indwelling Urethral Catheter Cath placed during this visit: yes, but has since been removed by the nurse Reason for continuing: Decision to DC catheter Insertion date: 06/13/18 Removal date: 06/14/18 Removal time: 05:19 1300 Cath placed during this visit: no Results - Labs CBC & Chem 7: 06/14/18 05:43 Laboratory Results - last 24 hr 06/13/18 06/13/18 06/13/18 09:42 13:53 14:13 WBC RBC Hgb Hct MCV MCH MCHC RDW Plt Count MPV Neut % (Auto) Lymph % (Auto) Yancey % (Auto) Eos % (Auto) Baso % (Auto) Neut # (Auto) Lymph # (Auto) Yancey # (Auto) Eos # (Auto) Baso # (Auto) WBC Differential Differential Comment Puncture Site Cl Patient Temperature 98.6 O2 Saturation 96 ABG pH 7.50 H ABG pCO2 30 L ABG pO2 255 H ABG HCO3 23 ABG O2 Content 13.8 ABG Base Excess 0.3 ABG Methemoglobin 2.0 Hector Test Hemoglobin 9.7 L Carboxyhemoglobin 0.9 O2 Delivery Device Or Vent Setting Inspired O2 21 Critical Value No POC Glucose Blood Type O Positive Antibody Screen Negative MTS Gel Crossmatch See Detail 06/13/18 06/13/18 06/13/18 15:15 15:50 16:17 WBC 6.3 RBC 3.01 L Hgb 8.7 L Hct 25.4 L MCV 84.3 MCH 29.1 MCHC 34.5 RDW 13.3 Plt Count 230 MPV 7.1 Neut % (Auto) 75.1 H Lymph % (Auto) 15.9 Yancey % (Auto) 7.3 Eos % (Auto) 1.1 Baso % (Auto) 0.6 Neut # (Auto) 4.7 Lymph # (Auto) 1.0 Yancey # (Auto) 0.5 Eos # (Auto) 0.1 Baso # (Auto) 0.0 WBC Differential . Differential Comment Auto diff final Puncture Site Drawn in or Cl Patient Temperature 98.6 98.6 O2 Saturation 96 96 ABG pH 7.49 H 7.47 H ABG pCO2 31 L 28 L ABG pO2 266 H 256 H ABG HCO3 23 20 L ABG O2 Content 18.6 11.2 L ABG Base Excess 0.2 -3.0 L ABG Methemoglobin 2.1 H 2.3 H Hector Test Present Hemoglobin 13.3 7.9 L* Carboxyhemoglobin 0.9 1.0 O2 Delivery Device Ventilator Or Vent Setting Or settings Inspired O2 21 21 Critical Value No Yes POC Glucose Blood Type Antibody Screen MTS Gel Crossmatch 06/13/18 06/13/18 06/14/18 18:20 22:09 05:43 WBC 8.7 RBC 3.05 L Hgb 8.6 L 7.5 L Hct 26.0 L MCV 85.3 MCH 28.3 MCHC 33.2 RDW 13.6 Plt Count 278 MPV 7.9 Neut % (Auto) Lymph % (Auto) Yancey % (Auto) Eos % (Auto) Baso % (Auto) Neut # (Auto) Lymph # (Auto) Yancey # (Auto) Eos # (Auto) Baso # (Auto) WBC Differential Differential Comment Puncture Site Patient Temperature O2 Saturation ABG pH ABG pCO2 ABG pO2 ABG HCO3 ABG O2 Content ABG Base Excess ABG Methemoglobin Hector Test Hemoglobin Carboxyhemoglobin O2 Delivery Device Vent Setting Inspired O2 Critical Value POC Glucose 188 H Blood Type Antibody Screen MTS Gel Crossmatch - Imaging Impressions Lumbar Spine X-Ray 06/13/18 00:00 CONCLUSION: Good position and alignment on this postoperative study. Assessment and Plan - Assessment and Plan 62yo F, POD#1 s/p L4-L5 decompression with instrumented fusion 1. PT for mobilization. Given patient's issues with pain, will order weave brace to help mobilize patient but she may be mobilized out of bed without the brace until it is fitted. 2. Hgb 6.4 this morning. Will transfuse 2U 3. Monitor HV output. Will remove after patient mobilizes with PT and output less than 40-50cc per shift 4. Plan for placement upon discharge, likely rehab/SNF 5. DVT ppx with mechanical SCDs and TEDs. No chemical anticoaguation.
[2018-06-14] MEDS ORDERED: Sodium Chlor 0.9% Inj 250 ML IV.SIG SCH (08:00)
[2018-06-14] MEDS: Gabapentin 300 MG Capsule PO SCH ×4 (09:36→20:07)
[2018-06-14] MEDS: oxyCODONE/Acetaminophen 10/325 Tablet PO PRN (09:39)
[2018-06-14] MEDS: Propranolol 10 MG Tablet PO SCH ×2 (09:50→20:28)
[2018-06-14] MEDS: Multivitamin/Minerals Therapeutic Tablet PO SCH ×2 (09:50→20:28)
[2018-06-14] MEDS ORDERED: Acetaminophen 325 MG Supp RECTAL PRN (11:47)
[2018-06-14] MEDS ORDERED: Dextrose 50% in Water 50 ML Vial IV.PUSH PRN (11:50)
--- NOTE | 2018-06-14 12:08 | P.CON ---
History of Present Illness Service: Medicine Consult date: 06/14/18 Requesting Physician: Vika Figueroa Reason for Consult: Medical management Primary Care Provider: No Primary Care Physician Family Provider: No Primary Care Physician Chief Complaint: Pain History of Present Illness: This is a 62-year-old female past medical history of type 2 diabetes on metformin, hypertension, chronic lower back pain who presented with a surgical procedure due to continual back pain with L4-L5 laminectomy, facetectomy and foraminotomy, L4-L5 combined posterolateral and interbody fusion, L4-L5 instrumentation with bilateral pedicle screws by Dr. Nasra Figueroa. [facility] consulted for medical management. Patient in room moaning. Asked patient if she was in pain she shook her Janis. I told patient that she needs to speak with me in order for me to help her. She then stated that she is in pain. She is asking for more pain medication. I also asked patient if she wears dentures she stated yes. Since the nurse was complaining about patient not want swallowing her pills. She denies any swallowing difficulties. Patient said besides the pain she has no other complaints. About 1.5 hours earlier patient received 2 mg of morphine which did not help her pain at all. Patient also had a fever today of 101. She is also being transfused with 2 units of packed red blood cells by her primary due to hemoglobin is 7.5. Discussed case with patient's nurse. Review of Systems Comments: Difficulty doing review of systems since patient is complaining of pain. Interview is very limited due to patient not wanting not wanting to participate with interview. [facility] - History History Provided By: Patient - Medical History Medical History: Medical History (Last Updated 06/13/18 @ 09:38 by Jennifer Pagan RN) Wears dentures (Acute) Wears glasses (Acute) Hypertension (Acute) COPD (chronic obstructive pulmonary disease) (Acute) Sciatica (Acute) Pain (Acute) Diabetes - Surgical History Surgical History: Surgical History (Last Updated 06/13/18 @ 09:38 by Jennifer Pagan RN) History of repair of ACL (Acute) Hx of tubal ligation (Acute) Hx of sinus surgery (Acute) History of nasal surgery (Acute) History of ankle surgery Hx of total knee replacement - Tobacco History Second Hand Smoke Exposure: Yes Tobacco Use In Past 30 Days: No Smoking Status: Unknown if ever smoked Tobacco Type: Cigarettes - Alcohol History How Often Do You Have a Drink Containing Alcohol: Unable to Obtain - Substance Use History Substance History: No History of Abuse - Travel History Recent Travel in the [place] Within the Last 8 Weeks: No Recent Travel Out of the Country Within the Last 8 Weeks: No Medications and Allergies Active Medications: Active Medications Acetaminophen (Tylenol Supp) 325 mg RECTAL Q6H PRN PRN Reason: FEVER Al Hydrox/Mg Hydrox/Simethicone (Mag-Al Plus Susp Liq) 30 ml PO Q6H PRN PRN Reason: INDIGESTION Al Hydroxide/Mg Hydroxide (Milk Of Magnesia Liq) 30 ml PO BID PRN PRN Reason: Mild Constipation Bisacodyl (Dulcolax Supp) 10 mg RECTAL DAILY PRN PRN Reason: SEVERE CONSITIPATION Chlorhexidine Gluconate (Chlorhexidine 2% Cloth) 3 pack TOPICAL BOTTOM POLISHER [facility] Stop: 06/16/18 09:35 Last Admin: 06/13/18 09:15 Dose: 3 pack Chlorhexidine Gluconate (Hibiclens 4% Topical) 1 applicatio TOPICAL ONCE [facility] Stop: 06/17/18 09:59 Cyclobenzaprine HCl (Flexeril) 20 mg PO HS [facility] Last Admin: 06/13/18 22:17 Dose: 20 mg Dextrose (D50w Vial) 50 ml IV.PUSH UNSCH PRN PRN Reason: PER HYPOGLYCEMIA PROTOCOL Diphenhydramine HCl (Benadryl) 25 mg PO Q6H PRN PRN Reason: ITCHING Enalapril Maleate (Vasotec) 2.5 mg PO DAILY [facility] Last Admin: 06/14/18 09:51 Dose: Not Given Gabapentin (Neurontin) 300 mg PO TID [facility] Last Admin: 06/14/18 09:50 Dose: Not Given Glucagon (Glucagon Inj) 1 mg OTHER PRN PRN PRN Reason: for Hypoglycemia Protocol Hydromorphone HCl (Dilaudid Pf Inj) 2 mg IV.PUSH Q4H PRN PRN Reason: PAIN SCALE 7 TO 10 SEVERE Lactated Ringer's (Lr 1000 Ml Inj) 1,000 mls @ 30 mls/hr IV.SIG .Q24H [facility] Stop: 06/16/18 09:44 Last Admin: 06/14/18 11:01 Dose: Not Given Sodium Chloride (Ns Inj) 500 mls @ 30 mls/hr IV.SIG .Q10H [facility] Cefazolin Sodium 2,000 mg/ (Sodium Chloride) 100 mls @ 200 mls/hr IV.SIG BOTTOM POLISHER [facility] Stop: 06/16/18 09:59 Vancomycin HCl 1,000 mg/ (Sodium Chloride) 250 mls @ 250 mls/hr IV.SIG BOTTOM POLISHER [facility] Stop: 06/16/18 09:54 Sodium Chloride (Ns Inj) 250 mls @ 15 mls/hr IV.SIG ONCE [facility] Stop: 06/15/18 00:39 Insulin Aspart (Novolog Insulin Correctional Sugar Inj) 0 unit SQ ACHS [facility]; Protocol Lactulose (Lactulose Liq) 30 ml PO DAILY PRN PRN Reason: SEVERE CONSITIPATION Metformin HCl (Glucophage) 1,000 mg PO BID [facility] Last Admin: 06/14/18 09:51 Dose: Not Given Metoprolol Tartrate (Lopressor) 25 mg PO BOTTOM POLISHER [facility] Stop: 06/16/18 09:35 Last Admin: 06/13/18 10:19 Dose: Not Given Miscellaneous Information ([facility] Nursing Information) 1 each OTHER UNSCH PRN PRN Reason: SEE LABEL COMMENTS Stop: 06/14/18 18:13 Multivitamins/Minerals (Theragran-M) 1 tab PO BID [facility] Stop: 08/12/18 20:59 Last Admin: 06/14/18 09:50 Dose: Not Given Ondansetron HCl (Zofran Inj) 4 mg IV.PUSH Q6H PRN PRN Reason: NAUSEA OR VOMITING Oxycodone/Acetaminophen (Percocet 10/325 Mg) 2 tab PO Q6H PRN PRN Reason: PAIN SCALE 6 TO 10 Oxycodone/Acetaminophen (Percocet 10/325 Mg) 1 tab PO Q6H PRN PRN Reason: PAIN SCALE 1 TO 5 Last Admin: 06/13/18 22:16 Dose: 1 tab Potassium Chloride (Klor-Con 10) 10 meq PO DAILY [facility] Last Admin: 06/14/18 09:41 Dose: 10 meq Propranolol HCl (Inderal) 30 mg PO BID [facility] Last Admin: 06/14/18 09:50 Dose: Not Given Sennosides (Senokot) 17.2 mg PO BID PRN PRN Reason: Moderate Constipation Sodium Chloride (Ns Flush) 2 ml IV.FLUSH BID [facility] Last Admin: 06/14/18 09:42 Dose: 2 ml Sodium Chloride (Ns Flush) 2 ml IV.FLUSH PRN PRN PRN Reason: FLUSH AFTER USING IV ACCESS Allergies Allergy/AdvReac Type Severity Reaction Status Date / Time aspirin Allergy Severe VOMITING, Unverified 06/13/18 09:23 NAUSEA, CRAMPING azithromycin Allergy Severe Gastrointestinal Verified 06/13/18 09:23 Upset Home Medications Medication Instructions Recorded Confirmed Type ascorbic acid (vitamin C) 500 mg PO DAILY 06/09/18 06/13/18 History cranberry 500 mg PO DAILY 06/09/18 06/13/18 History cyclobenzaprine 20 mg PO HS 06/09/18 06/13/18 History diphenhydramine HCl [Benadryl 25 mg PO BID 06/09/18 06/13/18 History Allergy] docusate sodium [Stool Softener] 100 mg PO DAILY 06/09/18 06/13/18 History enalapril maleate 2.5 mg PO DAILY 06/09/18 06/13/18 History gabapentin 300 mg PO TID 06/09/18 06/13/18 History metformin 1,000 mg PO BID 06/09/18 06/13/18 History cgoginocyxer-rmg-qzaa-FA-vit K 1 tab PO DAILY 06/09/18 06/13/18 History [Adults Multivitamin] oxycodone 10 mg PO Q4-6H PRN 06/09/18 06/13/18 History potassium chloride 10 meq PO DAILY 06/09/18 06/13/18 History propranolol 30 mg PO BID 06/09/18 06/13/18 History Physical Exam Vital signs: Vital Signs 06/13/18 18:10 06/13/18 18:30 06/13/18 18:45 Temperature 99.1 F Pulse Rate 112 H 104 H 108 H Respiratory Rate 18 18 18 Blood Pressure 115/57 L 104/60 111/58 L Pulse Oximetry 100 100 100 06/13/18 19:00 06/13/18 19:15 06/13/18 19:30 Temperature Pulse Rate 111 H 110 H 109 H Respiratory Rate 18 18 18 Blood Pressure 109/55 L 101/58 L 108/72 Pulse Oximetry 100 100 100 06/13/18 20:16 06/13/18 21:23 06/13/18 22:00 Temperature 99.1 F 96.9 F L Pulse Rate 107 H 117 H Respiratory Rate 18 Blood Pressure 111/71 116/59 L Pulse Oximetry 100 96 96 06/13/18 23:33 06/14/18 04:00 06/14/18 05:19 Temperature 97.5 F L 97.9 F Pulse Rate 113 H 122 H Respiratory Rate 18 18 Blood Pressure 134/62 137/61 Pulse Oximetry 99 97 94 L 06/14/18 08:00 Temperature 101.6 F H Pulse Rate 133 H Respiratory Rate 16 Blood Pressure 117/61 Pulse Oximetry 96 Intake & Output 06/13/18 06/14/18 06/14/18 18:59 06:59 18:59 Intake Total 4533 / 4533 560 / 560 Output Total 1100 / 1100 810 / 810 Balance 3433 / 3433 -250 / -250 Weight 64 kg Intake: IV 200 / 200 Ancef Inj 1,000 MG In NS Inj 200 / 200 100 ML @ 200 mls/hr IV.SIG Q6H [facility] Rx#:[id number] Oral 360 / 360 Anesthesia Amount 3800 / 3800 Cell Saver Amount 733 / 733 Output: Estimated Blood Loss 1100 / 1100 Urine Amount (Catheter) 800 / 800 Indwelling Urethral Catheter 800 / 800 Wound Drainage 10 / 10 Lower Medial Back 10 / 10 Other: # Bowel Movements 0 Weight On Admission 64 kg - Constitutional Comments: Patient is in bed and yelling and moaning. - Routine HEENT Exam Head: Present: normocephalic, atraumatic Eye: Present: EOMI, PERRL Comments: no teeth - Routine Neck Exam Present: supple - Routine Respiratory Exam Present: CTA bilaterally - Routine Cardiovascular Exam Present: RRR, S1, S2 Comments: No rubs murmurs or gallops. - Routine Abdominal Exam Present: soft, normoactive bowel sounds Comments: Negative for any tenderness to palpation. Negative for any peritoneal signs. - Routine Extremities Exam Present: edema Comments: Patient is able to feel sensation of the lower extremity to touch. She is grossly moves her LE but limited due to pain. - Routine Skin Exam Comments: Rash on cheeks - Routine Neurological Exam Present: alert Patient most likely is oriented but she does not want to answer certain questions. So unable to assess, but she can follow commands. - Routine Psychiatric Exam Comments: Patient is tearful - Urinary Catheter Management Indwelling Urethral Catheter Cath placed during this visit: yes, but has since been removed by the nurse Reason for continuing: Decision to DC catheter Insertion date: 06/13/18 Removal date: 06/14/18 Removal time: 05:19 1300 Cath placed during this visit: no Assessment and Plan - Plan This is a 62-year-old female past medical history of hypertension, type 2 diabetes, and uncontrolled chronic pain who presented with L4-L5 laminectomy, facetectomy and foraminotomy,L4-L5 combined posterolateral and interbody fusion , and L4-L5 instrumentation with bilateral pedicle screws performed by Dr. Valentina Figueroa Postop day #1. Uncontrolled chronic back pain felt medical management -L4-L5 laminectomy, facetectomy and foraminotomy,L4-L5 combined posterolateral and interbody fusion, and L4-L5 instrumentation with bilateral pedicle screws performed by Dr. Valentina Figueroa Postop day #1. -At the moment poor pain control. Patient would not take any oral medication. Morphine did not help with her pain. We will try Dilaudid. Refusal to take oral medication -I will doubt patient has any problems with dysphagia I think this is more with compliance. Patient is missing her dentures. I notified nurse in regards to trying to obtain her dentures. We will also place a speech swallow eval. Fever -Patient does not have a leukocytosis. Most likely this is postop fever. She is getting postop antibiotics. I doubt this is an infectious etiology. Will get CMP and blood cultures were baseline. Continue to monitor clinically. Since patient refused to take any oral medication will try acetaminophen rectally if not we will give IV. Type 2 diabetes/hypertension -Home medication already restarted by primary team. Will also start a insulin sliding scale at low dose.
[2018-06-14] MEDS: HYDROmorphone PF Inj 2 MG/ML Vial IV.PUSH PRN ×3 (12:34→20:32)
[2018-06-14 14:33] LABS: Anion Gap 11 meq/L (5-15); Aspartate Aminotransferase 29 U/L (15-37); Blood Urea Nitrogen 14 mg/dL (7-18); Calcium 8.4 mg/dL (8.5-10.1); Carbon Dioxide 25.4 meq/L (21.0-32.0); Chloride 105 meq/L (98-107); Glomerular Filtration Rate Greater Than 89 mL/min (>89); Glucose,Random 145 mg/dL (74-106); Potassium 3.8 meq/L (3.5-5.1); Sodium 141 meq/L (136-145)
[2018-06-14 14:34] LABS: Alanine Aminotransferase 19 U/L (10-53)
[2018-06-14 14:37] LABS: Alkaline Phosphatase 64 U/L (45-117); Total Protein 5.7 g/dL (6.4-8.2)
[2018-06-14] MEDS: Insulin NovoLOG Aspart Correctional Sugar Inj SQ SCH ×3 (16:12→20:34)
[2018-06-15] MEDS: HYDROmorphone PF Inj 2 MG/ML Vial IV.PUSH PRN ×6 (00:30→22:17)
[2018-06-15 06:15] LABS: Baso % (Auto) 0.3 % (0.0-2.0); Eos % (Auto) 0.2 % (0.0-4.0); Hematocrit 26.6 % (35.0-46.0); Hemoglobin 9.3 gm/dL (11.6-15.3); Lymph # (Auto) 1.1 th/mm3 (1.0-4.8); Lymph % (Auto) 17.4 % (9.0-44.0); Mean Corpuscular Hemoglobin 30.3 pg (27.0-34.0); Mean Corpuscular Volume 86.8 fL (80.0-100.0); Mean Platelet Volume 7.6 fL (7.0-11.0); Mono # (Auto) 0.8 th/mm3 (0.0-0.9); Mono % (Auto) 12.6 % (0.0-8.0); Neut # (Auto) 4.6 th/mm3 (1.8-7.7); Neut % (Auto) 69.5 % (16.0-70.0); Platelet Count 207 th/mm3 (150-450); Red Blood Count 3.06 mil/mm3 (4.00-5.30); Red Cell Distribution Width 13.9 % (11.6-17.2); White Blood Count 6.6 th/mm3 (4.0-11.0)
--- NOTE | 2018-06-15 08:02 | P.PNOP ---
Subjective Interval history: Patient remains very difficult to talk and inconsolable. Patient is minimally cooperative. She will open her eyes to command but other than that will not follow commands. Physical Exam Vital signs: Vital Signs 06/14/18 08:00 06/14/18 12:00 06/14/18 13:05 Temperature 101.6 F H 99.9 F H Pulse Rate 133 H 135 H Respiratory Rate 16 16 18 Blood Pressure 117/61 130/62 Pulse Oximetry 96 96 06/14/18 14:30 06/14/18 14:55 06/14/18 16:00 Temperature 99.0 F 100.2 F H 99.3 F Pulse Rate 135 H 130 H 127 H Respiratory Rate 20 20 16 Blood Pressure 124/61 120/55 L 114/58 L Pulse Oximetry 91 L 91 L 91 L 06/14/18 17:41 06/14/18 17:48 06/14/18 18:22 Temperature 99.8 F H 99.8 F H Pulse Rate 126 H 126 H Respiratory Rate 19 19 19 Blood Pressure 113/61 113/61 Pulse Oximetry 06/14/18 19:57 06/14/18 20:31 06/14/18 21:44 Temperature 99.1 F 99.1 F Pulse Rate 130 H 118 H Respiratory Rate 20 18 Blood Pressure 131/74 126/55 L Pulse Oximetry 93 L 96 98 06/15/18 00:00 06/15/18 04:00 Temperature 98 F 98.8 F Pulse Rate 125 H 130 H Respiratory Rate 20 20 Blood Pressure 149/91 H 168/88 H Pulse Oximetry 96 96 Intake & Output 06/14/18 06/15/18 06/15/18 18:59 06:59 18:59 Intake Total 431 / 431 515 / 515 Output Total 0 / 0 Balance 431 / 431 515 / 515 Intake: IV 100 / 100 115 / 115 LR 1000 mL Inj 1,000 ML @ 30 100 / 100 mls/hr IV.SIG .Q24H [facility] Rx#: [id number] NS Inj 250 ML @ 15 mls/hr IV. 15 / 15 SIG ONCE [facility] Rx#:[id number] Ancef Inj 1,000 MG In NS Inj 100 / 100 100 ML @ 200 mls/hr IV.SIG Q6H [facility] Rx#:[id number] Intake (Blood Product) Amt 331 / 331 400 / 400 Rbc As-3 Leukoreduced Unit 331 / 331 [id number] Rbc As-5 Leukoreduced Unit 0 / 0 400 / 400 [id number] Output: Wound Drainage 0 / 0 Lower Medial Back 0 / 0 Other: # Voids 2 Narrative: Awake but dozes off in between groans. Minimally cooperative. Open eyes to command but otherwise does not follow commands. Appears to be moving all 4 extremities although less with the left upper extremity which had pain prior to surgery as result of previous shoulder issues. Dressing and HV in place. BLE: unable to fully assess as patient uncooperative, but spontaneously moving bilateral lower extremities. BCR - Urinary Catheter Management Indwelling Urethral Catheter Cath placed during this visit: yes, but has since been removed by the nurse Reason for continuing: Decision to DC catheter Insertion date: 06/13/18 Removal date: 06/14/18 Removal time: 05:19 1300 Cath placed during this visit: no Results - Labs CBC & Chem 7: 06/15/18 05:14 06/14/18 13:25 Laboratory Results - last 24 hr 06/13/18 06/14/18 06/14/18 14:13 08:14 13:24 WBC RBC Hgb Hct MCV MCH MCHC RDW Plt Count MPV Neut % (Auto) Lymph % (Auto) [place] % (Auto) Eos % (Auto) Baso % (Auto) Neut # (Auto) Lymph # (Auto) [place] # (Auto) Eos # (Auto) Baso # (Auto) WBC Differential Differential Comment Sodium Potassium Chloride Carbon Dioxide Anion Gap BUN Creatinine Estimated GFR POC Glucose 148 H 165 H Random Glucose Calcium Total Bilirubin AST ALT Alkaline Phosphatase Total Protein Albumin MTS Gel Crossmatch See Detail 06/14/18 06/14/18 06/14/18 13:25 17:56 20:31 WBC RBC Hgb Hct MCV MCH MCHC RDW Plt Count MPV Neut % (Auto) Lymph % (Auto) [place] % (Auto) Eos % (Auto) Baso % (Auto) Neut # (Auto) Lymph # (Auto) [place] # (Auto) Eos # (Auto) Baso # (Auto) WBC Differential Differential Comment Sodium 141 Potassium 3.8 Chloride 105 Carbon Dioxide 25.4 Anion Gap 11 BUN 14 Creatinine 0.50 Estimated GFR Greater than 89 POC Glucose 153 H 154 H Random Glucose 145 H Calcium 8.4 L Total Bilirubin 0.5 AST 29 ALT 19 Alkaline Phosphatase 64 Total Protein 5.7 L Albumin 3.0 L MTS Gel Crossmatch 06/15/18 05:14 WBC 6.6 RBC 3.06 L Hgb 9.3 L Hct 26.6 L MCV 86.8 MCH 30.3 MCHC 35.0 RDW 13.9 Plt Count 207 MPV 7.6 Neut % (Auto) 69.5 Lymph % (Auto) 17.4 [place] % (Auto) 12.6 H Eos % (Auto) 0.2 Baso % (Auto) 0.3 Neut # (Auto) 4.6 Lymph # (Auto) 1.1 [place] # (Auto) 0.8 Eos # (Auto) 0.0 Baso # (Auto) 0.0 WBC Differential . Differential Comment Auto diff final Sodium Potassium Chloride Carbon Dioxide Anion Gap BUN Creatinine Estimated GFR POC Glucose Random Glucose Calcium Total Bilirubin AST ALT Alkaline Phosphatase Total Protein Albumin MTS Gel Crossmatch Assessment and Plan - Assessment and Plan 62yo F, POD#2 s/p L4-L5 decompression with instrumented fusion 1. PT for mobilization. Given patient's issues with pain, will order weave brace to help mobilize patient but she may be mobilized out of bed without the brace until it is fitted. 2. Hgb >9 after 22 units yesterday. Will monitor 3. Monitor HV output. Will remove after patient mobilizes with PT and output less than 40-50cc per shift 4. Plan for placement upon discharge, likely rehab/SNF 5. DVT ppx with mechanical SCDs and TEDs. No chemical anticoaguation. 6. Patient with baseline slurred speech and question of developmental delay, however, patient appears to have very minimal motivation and essentially just groans in bed. In addition, patient has not been eating or drinking significantly and has not been able to take oral medications. This appears more to be psychiatric rather than neurologic although we will defer to medicine for assistance in managiing and any further workup that might be necessary. This does not appear to be delirium but rather lack of motivation and pain based.
[2018-06-15] MEDS: Insulin NovoLOG Aspart Correctional Sugar Inj SQ SCH ×4 (08:59→22:35)
[2018-06-15] MEDS: Propranolol 10 MG Tablet PO SCH ×2 (10:58→22:29)
[2018-06-15] MEDS: Multivitamin/Minerals Therapeutic Tablet PO SCH ×2 (11:07→22:29)
[2018-06-15] MEDS: Gabapentin 300 MG Capsule PO SCH ×3 (11:07→18:43)
[2018-06-15] MEDS ORDERED: Sodium Chlor 0.9% Inj 500 ML IV.SIG SCH (13:54)
--- NOTE | 2018-06-15 13:57 | P.PNIM ---
Subjective Interval history: Follow up chronic conditions. Patient is not following commands and is only moaning. Will not answer if she is in pain. Discussed with RN who states she only takes medications when she wants. Patient may benefit from a feeding tube or NGT for meds. Physical Exam Vital signs: Vital Signs 06/14/18 14:30 06/14/18 14:55 06/14/18 16:00 Temperature 99.0 F 100.2 F H 99.3 F Pulse Rate 135 H 130 H 127 H Respiratory Rate 20 20 16 Blood Pressure 124/61 120/55 L 114/58 L Pulse Oximetry 91 L 91 L 91 L 06/14/18 17:41 06/14/18 17:48 06/14/18 18:22 Temperature 99.8 F H 99.8 F H Pulse Rate 126 H 126 H Respiratory Rate 19 19 19 Blood Pressure 113/61 113/61 Pulse Oximetry 06/14/18 19:57 06/14/18 20:31 06/14/18 21:44 Temperature 99.1 F 99.1 F Pulse Rate 130 H 118 H Respiratory Rate 20 18 Blood Pressure 131/74 126/55 L Pulse Oximetry 93 L 96 98 06/15/18 00:00 06/15/18 04:00 06/15/18 08:00 Temperature 98 F 98.8 F 98 F Pulse Rate 125 H 130 H 132 H Respiratory Rate 20 20 18 Blood Pressure 149/91 H 168/88 H 133/79 Pulse Oximetry 96 96 97 06/15/18 11:53 Temperature Pulse Rate Respiratory Rate Blood Pressure Pulse Oximetry 99 Intake & Output 06/14/18 06/15/18 06/15/18 18:59 06:59 18:59 Intake Total 431 / 431 515 / 515 Output Total 0 / 0 Balance 431 / 431 515 / 515 Intake: IV 100 / 100 115 / 115 LR 1000 mL Inj 1,000 ML @ 30 100 / 100 mls/hr IV.SIG .Q24H [facility] Rx#: [id number] NS Inj 250 ML @ 15 mls/hr IV. 15 / 15 SIG ONCE [facility] Rx#:[id number] Ancef Inj 1,000 MG In NS Inj 100 / 100 100 ML @ 200 mls/hr IV.SIG Q6H [facility] Rx#:[id number] Intake (Blood Product) Amt 331 / 331 400 / 400 Rbc As-3 Leukoreduced Unit 331 / 331 [id number] Rbc As-5 Leukoreduced Unit 0 / 0 400 / 400 [id number] Output: Wound Drainage 0 / 0 Lower Medial Back 0 / 0 Other: # Voids 2 Narrative: GENERAL: This is a well-nourished, well-developed patient, in no apparent distress. CARDIOVASCULAR: Tachycardic rate and rhythm without murmurs, gallops, or rubs. RESPIRATORY: Clear to auscultation. Breath sounds equal bilaterally. No wheezes , rales, or rhonchi. GASTROINTESTINAL: Abdomen soft, non-tender, nondistended. Normal active bowel sounds MUSCULOSKELETAL: Extremities without clubbing, cyanosis, or edema. NEURO: moaning and not oriented to person, place, time, or situation. Will not follow commands - Urinary Catheter Management Indwelling Urethral Catheter Cath placed during this visit: yes, but has since been removed by the nurse Reason for continuing: Decision to DC catheter Insertion date: 06/13/18 Removal date: 06/14/18 Removal time: 05:19 1300 Cath placed during this visit: no Results - Labs CBC & Chem 7: 06/15/18 05:14 06/14/18 13:25 Laboratory Results - last 24 hr 06/13/18 06/14/18 06/14/18 14:13 13:25 17:56 WBC RBC Hgb Hct MCV MCH MCHC RDW Plt Count MPV Neut % (Auto) Lymph % (Auto) [place] % (Auto) Eos % (Auto) Baso % (Auto) Neut # (Auto) Lymph # (Auto) [place] # (Auto) Eos # (Auto) Baso # (Auto) WBC Differential Differential Comment Sodium 141 Potassium 3.8 Chloride 105 Carbon Dioxide 25.4 Anion Gap 11 BUN 14 Creatinine 0.50 Estimated GFR Greater than 89 POC Glucose 153 H Random Glucose 145 H Calcium 8.4 L Total Bilirubin 0.5 AST 29 ALT 19 Alkaline Phosphatase 64 Total Protein 5.7 L Albumin 3.0 L MTS Gel Crossmatch See Detail 06/14/18 06/15/18 06/15/18 20:31 05:14 08:27 WBC 6.6 RBC 3.06 L Hgb 9.3 L Hct 26.6 L MCV 86.8 MCH 30.3 MCHC 35.0 RDW 13.9 Plt Count 207 MPV 7.6 Neut % (Auto) 69.5 Lymph % (Auto) 17.4 [place] % (Auto) 12.6 H Eos % (Auto) 0.2 Baso % (Auto) 0.3 Neut # (Auto) 4.6 Lymph # (Auto) 1.1 [place] # (Auto) 0.8 Eos # (Auto) 0.0 Baso # (Auto) 0.0 WBC Differential . Differential Comment Auto diff final Sodium Potassium Chloride Carbon Dioxide Anion Gap BUN Creatinine Estimated GFR POC Glucose 154 H 131 H Random Glucose Calcium Total Bilirubin AST ALT Alkaline Phosphatase Total Protein Albumin MTS Gel Crossmatch 06/15/18 12:09 WBC RBC Hgb Hct MCV MCH MCHC RDW Plt Count MPV Neut % (Auto) Lymph % (Auto) [place] % (Auto) Eos % (Auto) Baso % (Auto) Neut # (Auto) Lymph # (Auto) [place] # (Auto) Eos # (Auto) Baso # (Auto) WBC Differential Differential Comment Sodium Potassium Chloride Carbon Dioxide Anion Gap BUN Creatinine Estimated GFR POC Glucose 135 H Random Glucose Calcium Total Bilirubin AST ALT Alkaline Phosphatase Total Protein Albumin MTS Gel Crossmatch Microbiology 06/14/18 13:25 Blood - Peripheral Aerobic Blood Culture - Preliminary No growth in 1 day 06/14/18 13:25 Blood - Peripheral Anaerobic Blood Culture - Preliminary No growth in 1 day 06/14/18 13:20 Blood - Peripheral Aerobic Blood Culture - Preliminary No growth in 1 day 06/14/18 13:20 Blood - Peripheral Anaerobic Blood Culture - Preliminary No growth in 1 day Assessment and Plan - Plan This is a 62-year-old female past medical history of hypertension, type 2 diabetes, and uncontrolled chronic pain who presented with L4-L5 laminectomy, facetectomy and foraminotomy,L4-L5 combined posterolateral and interbody fusion , and L4-L5 instrumentation with bilateral pedicle screws performed by Dr. Valentina Figueroa Postop day #2. Uncontrolled chronic back pain felt medical management -L4-L5 laminectomy, facetectomy and foraminotomy,L4-L5 combined posterolateral and interbody fusion, and L4-L5 instrumentation with bilateral pedicle screws performed by Dr. Valentina Figueroa Postop day #2. -At the moment poor pain control. Patient would not take any oral medication. Morphine did not help with her pain. Cont Dilaudid. -PT eval and treat Refusal to take oral medication -I will doubt patient has any problems with dysphagia I think this is more with compliance. Patient is missing her dentures, try to obtain dentures. -Swallow eval pending -Patient may benefit from NGT or peg if she continues to not take any meds Fever -Patient does not have a leukocytosis. Most likely this is postop fever. She is getting postop antibiotics. -Continue to monitor clinically, cbc and bmp. -Since patient refused to take any oral medication will try acetaminophen rectally if not we will give IV. Tachycardia, likely due to pain and dehydration -will give a bolus and monitor vitals -Start metoprolol if HR does not improve with bolus and pain medications Type 2 diabetes/hypertension -Home medication already restarted by primary team. Will also start a insulin sliding scale at low dose. Discussed Condition With: Patient and steel handler Planning: Per ortho
[2018-06-16] MEDS: HYDROmorphone PF Inj 2 MG/ML Vial IV.PUSH PRN ×4 (02:16→16:38)
--- NOTE | 2018-06-16 06:27 | P.PNOP ---
Subjective Interval history: Patient resting much more comfortably this morning although continues to be minimally cooperative with following commands or answering questions. Physical Exam Vital signs: Vital Signs 06/15/18 08:00 06/15/18 11:53 06/15/18 12:00 Temperature 98 F 98 F Pulse Rate 132 H Respiratory Rate 18 18 Blood Pressure 133/79 117/55 L Pulse Oximetry 97 99 93 L 06/15/18 16:00 06/15/18 16:12 06/15/18 16:35 Temperature 97.7 F Pulse Rate 73 Respiratory Rate 16 14 14 Blood Pressure 145/65 H Pulse Oximetry 94 L 06/15/18 20:00 06/16/18 00:00 06/16/18 04:00 Temperature 99.9 F H 98.1 F Pulse Rate 97 H 69 Respiratory Rate 18 18 18 Blood Pressure 115/58 L 112/60 Pulse Oximetry 98 100 Intake & Output 06/15/18 06/15/18 06/16/18 06:59 18:59 06:59 Intake Total 515 / 515 Output Total 0 / 0 Balance 515 / 515 Intake: IV 115 / 115 LR 1000 mL Inj 1,000 ML @ 30 100 / 100 mls/hr IV.SIG .Q24H BONNY Rx#: [id number] NS Inj 250 ML @ 15 mls/hr IV. 15 / 15 SIG ONCE BONNY Rx#:[id number] Intake (Blood Product) Amt 400 / 400 Rbc As-5 Leukoreduced Unit 400 / 400 [id number] Output: Wound Drainage 0 / 0 Lower Medial Back 0 / 0 Other: # Voids 2 Narrative: Sleeping but arousable. Appears to be more comfortable this morning without groaning although again not following commands or answering questions. Sleeping but arousable. Back: Dressing in place. - Urinary Catheter Management Indwelling Urethral Catheter Cath placed during this visit: yes, but has since been removed by the nurse Reason for continuing: Decision to DC catheter Insertion date: 06/13/18 Removal date: 06/14/18 Removal time: 05:19 1300 Cath placed during this visit: no Results - Labs CBC & Chem 7: 06/16/18 06:19 06/16/18 06:19 Laboratory Results - last 24 hr 06/15/18 06/15/18 06/15/18 08:27 12:09 18:02 POC Glucose 131 H 135 H 124 H 06/15/18 22:33 POC Glucose 128 H Microbiology 06/14/18 13:25 Blood - Peripheral Aerobic Blood Culture - Preliminary No growth in 1 day 06/14/18 13:25 Blood - Peripheral Anaerobic Blood Culture - Preliminary No growth in 1 day 06/14/18 13:20 Blood - Peripheral Aerobic Blood Culture - Preliminary No growth in 1 day 06/14/18 13:20 Blood - Peripheral Anaerobic Blood Culture - Preliminary No growth in 1 day Assessment and Plan - Assessment and Plan 62yo F, POD#2 s/p L4-L5 decompression with instrumented fusion 1. PT for mobilization. Given patient's issues with pain, will order weave brace to help mobilize patient but she may be mobilized out of bed without the brace until it is fitted. 2. Hgb >9 after 22 units yesterday. Will monitor 3. Monitor HV output. Will remove after patient mobilizes with PT and output less than 40-50cc per shift 4. Plan for placement upon discharge, likely rehab/SNF 5. DVT ppx with mechanical SCDs and TEDs. No chemical anticoaguation. 6. Patient with baseline slurred speech and question of developmental delay, however, patient appears to have very minimal motivation and essentially just groans in bed. In addition, patient has not been eating or drinking significantly and has not been able to take oral medications. This appears more to be psychiatric rather than neurologic although we will defer to medicine for assistance in managiing and any further workup that might be necessary. This does not appear to be delirium but rather lack of motivation and pain based.
[2018-06-16 07:08] LABS: Baso % (Auto) 0.3 % (0.0-2.0); Eos # (Auto) 0.1 th/mm3 (0.0-0.4); Eos % (Auto) 2.2 % (0.0-4.0); Hemoglobin 8.6 gm/dL (11.6-15.3); Lymph # (Auto) 1.4 th/mm3 (1.0-4.8); Lymph % (Auto) 25.9 % (9.0-44.0); Mean Corpuscular HGB Conc 34.3 % (32.0-36.0); Mean Corpuscular Hemoglobin 29.9 pg (27.0-34.0); Mean Corpuscular Volume 87.3 fL (80.0-100.0); Mono # (Auto) 0.6 th/mm3 (0.0-0.9); Mono % (Auto) 12.2 % (0.0-8.0); Neut # (Auto) 3.1 th/mm3 (1.8-7.7); Neut % (Auto) 59.4 % (16.0-70.0); Platelet Count 213 th/mm3 (150-450); Red Blood Count 2.86 mil/mm3 (4.00-5.30); Red Cell Distribution Width 13.4 % (11.6-17.2); White Blood Count 5.3 th/mm3 (4.0-11.0)
[2018-06-16 07:33] LABS: Anion Gap 9 meq/L (5-15); Blood Urea Nitrogen 11 mg/dL (7-18); Calcium 8.3 mg/dL (8.5-10.1); Carbon Dioxide 29.9 meq/L (21.0-32.0); Chloride 104 meq/L (98-107); Glomerular Filtration Rate Greater Than 89 mL/min (>89); Glucose,Random 96 mg/dL (74-106); Potassium 3.8 meq/L (3.5-5.1); Sodium 143 meq/L (136-145)
[2018-06-16] MEDS: Insulin NovoLOG Aspart Correctional Sugar Inj SQ SCH ×4 (08:00→20:59)
[2018-06-16] MEDS: Propranolol 10 MG Tablet PO SCH ×3 (08:25→20:57)
[2018-06-16] MEDS: Gabapentin 300 MG Capsule PO SCH ×3 (08:26→18:17)
[2018-06-16] MEDS: Multivitamin/Minerals Therapeutic Tablet PO SCH ×2 (08:26→20:58)
--- NOTE | 2018-06-16 11:16 | MB ---
cc: Estella Walls MD DATE: 06/15/2018 REASON FOR CONSULTATION: Change in mental status. HISTORY OF PRESENT ILLNESS: This is a 62-year-old woman with a history of diabetes, hypertension, chronic low back pain. Surgical procedure was done; L4-L5 laminectomy, decompression. I believe today is postop day number 2. I am asked to see her for change in mental status. Currently, physical therapy got her out of bed into a chair. She is crying for pain. She seems to be a bit confused, but then wondering if it is more pain related versus medicine related. She does state that is her daughter that is in the bed next to her. Her speech is slurred-like, but she is edentulous. She seems to be moving everything. Reflexes are trace to 1+. Does not follow for cerebellar testing. Gait cannot be assessed. LABORATORY STUDIES: Labs are reviewed. Hemoglobin is 8.6, platelets 213,000. Chemistries: Glucose 114. GFR is normal. IMAGING: No imaging of the head. Last CT of the head she had would have she would have been in 2017, which showed no acute findings, some hematoma at that time, supraorbital. This was 03/20/2017. MEDICATIONS: Current medications that she is on: 1. Tylenol p.r.n. 2. Flexeril 20 mg at bedtime. 3. Gabapentin 300 mg 3 times a day. 4. Dilaudid p.r.n. 5. Metformin. 6. Oxycodone/acetaminophen, which is Percocet 10/325 every 6 hours p.r.n.; 1-2 tablets. IMPRESSION: Change in mental status; may be multifactorial, may be due to pain as well as pain medication. I am not sure what her background mental status; is there a developmental delay, that certainly is a possibility. I will go ahead and get a CT as well as an EEG; CT of the head just to make sure. We will get an EEG to make sure there is no background abnormalities as far as any seizure-like events which is less likely. It may just take some time for her to clear postop. I will continue to monitor. Further recommendations as needed. MD SHERMAN Adams/donovan , 10:40 AM , 10:46 AM
--- NOTE | 2018-06-16 14:55 | P.PNIM ---
Subjective Interval history: Follow up chronic conditions. Patient moans when she is in pain, states she is painful but does not elaborated. According to nursing she is taking her medication better and is taking ensure. Physical Exam Vital signs: Vital Signs 06/15/18 16:00 06/15/18 16:12 06/15/18 16:35 Temperature 97.7 F Pulse Rate 73 Respiratory Rate 16 14 14 Blood Pressure 145/65 H Pulse Oximetry 94 L 06/15/18 20:00 06/16/18 00:00 06/16/18 04:00 Temperature 99.9 F H 98.1 F Pulse Rate 97 H 69 Respiratory Rate 18 18 18 Blood Pressure 115/58 L 112/60 Pulse Oximetry 98 100 06/16/18 10:54 Temperature Pulse Rate Respiratory Rate Blood Pressure Pulse Oximetry 96 Intake & Output 06/15/18 06/16/18 06/16/18 18:59 06:59 18:59 Intake Total 75 / 75 Output Total 50 / 50 Balance 75 / 75 -50 / -50 Weight 64 kg Intake: Oral 75 / 75 Output: Wound Drainage 50 / 50 Lower Medial Back 50 / 50 Other: # Voids 3 Narrative: GENERAL: This is a well-nourished, well-developed patient, in no apparent distress. CARDIOVASCULAR: Tachycardic rate and rhythm without murmurs, gallops, or rubs. RESPIRATORY: Clear to auscultation. Breath sounds equal bilaterally. No wheezes , rales, or rhonchi. GASTROINTESTINAL: Abdomen soft, non-tender, nondistended. Normal active bowel sounds MUSCULOSKELETAL: Extremities without clubbing, cyanosis, or edema. NEURO: moaning and not answering many questions. Will not follow commands - Urinary Catheter Management Indwelling Urethral Catheter Cath placed during this visit: yes, but has since been removed by the nurse Reason for continuing: Decision to DC catheter Insertion date: 06/13/18 Removal date: 06/14/18 Removal time: 05:19 1300 Cath placed during this visit: no Results - Labs CBC & Chem 7: 06/16/18 06:19 06/16/18 06:19 Laboratory Results - last 24 hr 06/15/18 06/15/18 06/16/18 18:02 22:33 06:19 WBC 5.3 RBC 2.86 L Hgb 8.6 L Hct 25.0 L MCV 87.3 MCH 29.9 MCHC 34.3 RDW 13.4 Plt Count 213 MPV 7.0 Neut % (Auto) 59.4 Lymph % (Auto) 25.9 [place] % (Auto) 12.2 H Eos % (Auto) 2.2 Baso % (Auto) 0.3 Neut # (Auto) 3.1 Lymph # (Auto) 1.4 [place] # (Auto) 0.6 Eos # (Auto) 0.1 Baso # (Auto) 0.0 WBC Differential . Differential Comment Auto diff final Sodium Potassium Chloride Carbon Dioxide Anion Gap BUN Creatinine Estimated GFR POC Glucose 124 H 128 H Random Glucose Calcium 06/16/18 06/16/18 06/16/18 06:19 08:01 12:21 WBC RBC Hgb Hct MCV MCH MCHC RDW Plt Count MPV Neut % (Auto) Lymph % (Auto) [place] % (Auto) Eos % (Auto) Baso % (Auto) Neut # (Auto) Lymph # (Auto) [place] # (Auto) Eos # (Auto) Baso # (Auto) WBC Differential Differential Comment Sodium 143 Potassium 3.8 Chloride 104 Carbon Dioxide 29.9 Anion Gap 9 BUN 11 Creatinine 0.32 L Estimated GFR Greater than 89 POC Glucose 114 H 113 H Random Glucose 96 Calcium 8.3 L Microbiology 06/14/18 13:25 Blood - Peripheral Aerobic Blood Culture - Preliminary No growth in 2 days 06/14/18 13:25 Blood - Peripheral Anaerobic Blood Culture - Preliminary No growth in 2 days 06/14/18 13:20 Blood - Peripheral Aerobic Blood Culture - Preliminary No growth in 2 days 06/14/18 13:20 Blood - Peripheral Anaerobic Blood Culture - Preliminary No growth in 2 days Assessment and Plan - Plan This is a 62-year-old female past medical history of hypertension, type 2 diabetes, and uncontrolled chronic pain who presented with L4-L5 laminectomy, facetectomy and foraminotomy,L4-L5 combined posterolateral and interbody fusion , and L4-L5 instrumentation with bilateral pedicle screws performed by Dr. Valentina Figueroa Postop day #3. Uncontrolled chronic back pain felt medical management -L4-L5 laminectomy, facetectomy and foraminotomy,L4-L5 combined posterolateral and interbody fusion, and L4-L5 instrumentation with bilateral pedicle screws performed by Dr. Valentina Figueroa Postop day #3. -At the moment poor pain control. Patient would not take any oral medication. Morphine did not help with her pain. Cont Dilaudid. -PT eval and treat Refusal to take oral medication, AMS -I will doubt patient has any problems with dysphagia I think this is more with compliance. Patient is missing her dentures, try to obtain dentures. -Swallow eval pending -Patient may benefit from NGT or peg if she continues to not take any meds -Neurology consulted by ortho, CT ordered, thinks may be related to pain or pain meds Fever, improving -Patient does not have a leukocytosis. Most likely this is postop fever. She is getting postop antibiotics. -Continue to monitor clinically, cbc and bmp. -Since patient refused to take any oral medication will try acetaminophen rectally if not we will give IV. Tachycardia, likely due to pain and dehydration, improving -monitor vitals -Start metoprolol if HR does not stay controlled Type 2 diabetes/hypertension -Home medication already restarted by primary team. Will also start a insulin sliding scale at low dose. Discussed Condition With: patient and pattern chart writer Planning: Per ortho
--- NOTE | 2018-06-16 14:55 | CT ---
EXAM DATE: 06/16/2018 2:50 PM EDT AGE/SEX: 62 years / Female INDICATIONS: Confusion. CLINICAL DATA: This is the patient's initial encounter. Patient reports that signs and symptoms have been present for 1 day and indicates a pain score of Nonresponsive. MEDICAL/SURGICAL HISTORY: Chronic obstructive pulmonary disease. Diabetes. Hypertension. . Sinus surgery RADIATION DOSE: 35.65 CTDI (mGy) COMPARISON: [facility] [place], CT BRAIN W/O CONTRAST, 03/20/2017. . TECHNIQUE: CT of the head without contrast. Using automated exposure control and adjustment of the mA and/or kV according to patient size, radiation dose was kept as low as reasonably achievable to ob tain optimal diagnostic quality images. DICOM format image data is available electronically for revi ew and comparison. FINDINGS: Cerebrum: The ventricles are normal for age. No evidence of midline shift, mass lesion, hemorrhage or acute infarction. No extraaxial fluid collections are seen. Posterior Fossa: The cerebellum and brainstem are intact. The 4th ventricle is midline. The cerebe llopontine angle is unremarkable. Extracranial: The visualized portion of the orbits is intact. Skull: The calvaria is intact. No evidence of skull fracture. CONCLUSION: 1. Negative for acute process . Electronically signed by: Jermaine Woods MD 06/16/2018 2:53 PM EDT
--- NOTE | 2018-06-16 17:37 | MG ---
cc: Estella Walls MD EEG NUMBER: [id number] REQUESTING: Estella Walls MD POSITION: Room 1635 with photic stimulation. Awake, drowsy, asleep. INDICATION: History of back surgery, complaining of pain, questionable change in mental status on Flexeril, Dilaudid, I believe [place]. DESCRIPTION OF RECORD: The patient has overall slowing of background predominantly of 5-6 Hz. Note that she is talking throughout the recording. The lead quality control technician documenting that causing a lot of artifact. EKG does look sinus. Photic stimulation does elicit driving response, but a lot of eye artifact as well. Overall, mild slowing of background consistent with what looks like encephalopathic findings, may be related to the patient's medication effect; however, no evidence of epileptiform features. Estella Walls MD DF/ct , 04:49 PM , 04:54 PM
[2018-06-16] MEDS: oxyCODONE/Acetaminophen 10/325 Tablet PO PRN (20:58)
[2018-06-17] MEDS: oxyCODONE/Acetaminophen 10/325 Tablet PO PRN ×2 (04:40→21:38)
[2018-06-17] MEDS: HYDROmorphone PF Inj 2 MG/ML Vial IV.PUSH PRN (07:10)
[2018-06-17 07:21] LABS: Baso % (Auto) 0.6 % (0.0-2.0); Eos # (Auto) 0.2 th/mm3 (0.0-0.4); Eos % (Auto) 2.9 % (0.0-4.0); Hematocrit 29.8 % (35.0-46.0); Lymph # (Auto) 1.2 th/mm3 (1.0-4.8); Lymph % (Auto) 22.4 % (9.0-44.0); Mean Corpuscular HGB Conc 33.6 % (32.0-36.0); Mean Corpuscular Hemoglobin 29.6 pg (27.0-34.0); Mono # (Auto) 0.7 th/mm3 (0.0-0.9); Mono % (Auto) 13.5 % (0.0-8.0); Neut # (Auto) 3.2 th/mm3 (1.8-7.7); Neut % (Auto) 60.6 % (16.0-70.0); Platelet Count 344 th/mm3 (150-450); Red Blood Count 3.39 mil/mm3 (4.00-5.30); Red Cell Distribution Width 13.4 % (11.6-17.2); White Blood Count 5.2 th/mm3 (4.0-11.0)
[2018-06-17] MEDS: Gabapentin 300 MG Capsule PO SCH ×3 (09:15→17:22)
[2018-06-17] MEDS: Insulin NovoLOG Aspart Correctional Sugar Inj SQ SCH ×4 (09:16→21:39)
[2018-06-17] MEDS: Propranolol 10 MG Tablet PO SCH ×2 (09:21→21:37)
[2018-06-17] MEDS: Multivitamin/Minerals Therapeutic Tablet PO SCH ×2 (09:21→21:37)
--- NOTE | 2018-06-17 15:33 | P.PN ---
Subjective Interval history: Follow-up back pain status post laminectomy June 17, 2018-patient seen and examined, somewhat lethargic this a.m. and sitting by the door. Case discussed with REJI Hebert Physical Exam Vital signs: Vital Signs 06/16/18 16:00 06/16/18 20:00 06/17/18 00:00 Temperature 89 F L 97.9 F 97.9 F Pulse Rate 100 H 109 H 86 Respiratory Rate 18 18 18 Blood Pressure 146/70 H 153/76 H 119/58 L Pulse Oximetry 97 96 95 06/17/18 08:00 06/17/18 12:00 Temperature 97.7 F 97.9 F Pulse Rate 108 H 84 Respiratory Rate 18 18 Blood Pressure 110/64 101/53 L Pulse Oximetry 94 L 94 L Intake & Output 06/16/18 06/17/18 06/17/18 18:59 06:59 18:59 Intake Total 475 / 475 Output Total 50 / 50 Balance -50 / -50 475 / 475 Weight 64 kg Intake: Oral 475 / 475 Output: Wound Drainage 50 / 50 Lower Medial Back 50 / 50 Other: # Voids 3 Date of Last Bowel Movement 06/13/18 Narrative: GENERAL: Lethargic SKIN: Warm and dry. HEAD: Normocephalic. EYES: No scleral icterus. No injection or drainage. NECK: Supple, trachea midline. No JVD or lymphadenopathy. CARDIOVASCULAR: Regular rate and rhythm without murmurs, gallops, or rubs. RESPIRATORY: Breath sounds equal bilaterally. No accessory muscle use. GASTROINTESTINAL: Abdomen soft, non-tender, nondistended. MUSCULOSKELETAL: No cyanosis, or edema. BACK: Nontender without obvious deformity. No CVA tenderness.. - Urinary Catheter Management Indwelling Urethral Catheter Cath placed during this visit: yes, but has since been removed by the nurse Reason for continuing: Decision to DC catheter Insertion date: 06/13/18 Removal date: 06/14/18 Removal time: 05:19 1300 Cath placed during this visit: no Results - Labs CBC & Chem 7: 06/17/18 06:38 06/16/18 06:19 Laboratory Results - last 24 hr 06/16/18 06/16/18 06/17/18 16:53 20:52 06:38 WBC 5.2 RBC 3.39 L Hgb 10.0 L Hct 29.8 L MCV 88.0 MCH 29.6 MCHC 33.6 RDW 13.4 Plt Count 344 D MPV 7.0 Neut % (Auto) 60.6 Lymph % (Auto) 22.4 [place] % (Auto) 13.5 H Eos % (Auto) 2.9 Baso % (Auto) 0.6 Neut # (Auto) 3.2 Lymph # (Auto) 1.2 [place] # (Auto) 0.7 Eos # (Auto) 0.2 Baso # (Auto) 0.0 WBC Differential . Differential Comment Auto diff final POC Glucose 104 122 H 06/17/18 06/17/18 09:12 12:30 WBC RBC Hgb Hct MCV MCH MCHC RDW Plt Count MPV Neut % (Auto) Lymph % (Auto) [place] % (Auto) Eos % (Auto) Baso % (Auto) Neut # (Auto) Lymph # (Auto) [place] # (Auto) Eos # (Auto) Baso # (Auto) WBC Differential Differential Comment POC Glucose 131 H 126 H Microbiology 06/14/18 13:25 Blood - Peripheral Aerobic Blood Culture - Preliminary No growth in 3 days 06/14/18 13:25 Blood - Peripheral Anaerobic Blood Culture - Preliminary No growth in 3 days 06/14/18 13:20 Blood - Peripheral Aerobic Blood Culture - Preliminary No growth in 3 days 06/14/18 13:20 Blood - Peripheral Anaerobic Blood Culture - Preliminary No growth in 3 days Assessment and Plan - Plan 62-year-old female with Uncontrolled chronic back pain felt medical management -L4-L5 laminectomy, facetectomy and foraminotomy,L4-L5 combined posterolateral and interbody fusion, and L4-L5 instrumentation with bilateral pedicle screws -Management per orthopedic surgeon -Continue pain management accordingly -PT eval and treat Toxic encephalopathy-secondary to medication likely narcotics -Neurology consulted Tachycardia, likely due to pain and dehydration, improving -Start metoprolol if HR does not stay controlled Type 2 diabetes/hypertension -Home medication already restarted by primary team. On insulin sliding scale at low dose.
--- NOTE | 2018-06-17 19:37 | P.PNOP ---
Subjective Interval history: Patient reports mild pain to the back. Patient states her pain is improving. Speech is still slurred although appropriate. Patient is drowsy. Physical Exam Vital signs: Vital Signs 06/16/18 20:00 06/17/18 00:00 06/17/18 08:00 Temperature 97.9 F 97.9 F 97.7 F Pulse Rate 109 H 86 108 H Respiratory Rate 18 18 18 Blood Pressure 153/76 H 119/58 L 110/64 Pulse Oximetry 96 95 94 L 06/17/18 12:00 06/17/18 16:00 06/17/18 16:58 Temperature 97.9 F 97.4 F L Pulse Rate 84 66 Respiratory Rate 18 16 Blood Pressure 101/53 L 82/43 L 91/54 L Pulse Oximetry 94 L 94 L Intake & Output 06/17/18 06/17/18 06/18/18 06:59 18:59 06:59 Intake Total 475 / 475 Balance 475 / 475 Weight 64 kg Intake: Oral 475 / 475 Other: # Voids 3 2 Date of Last Bowel Movement 06/13/18 # Bowel Movements 1 Narrative: Patient's lumbar dressing is C/D/I. Patient moves both lower extremities and has good sensation to light touch bilaterally. Calves are soft and nontender. 2+ pedal pulses bilaterally. - Urinary Catheter Management Indwelling Urethral Catheter Cath placed during this visit: yes, but has since been removed by the nurse Reason for continuing: Decision to DC catheter Insertion date: 06/13/18 Removal date: 06/14/18 Removal time: 05:19 1300 Cath placed during this visit: no Results - Labs CBC & Chem 7: 06/17/18 06:38 06/16/18 06:19 Laboratory Results - last 24 hr 06/16/18 06/17/18 06/17/18 20:52 06:38 09:12 WBC 5.2 RBC 3.39 L Hgb 10.0 L Hct 29.8 L MCV 88.0 MCH 29.6 MCHC 33.6 RDW 13.4 Plt Count 344 D MPV 7.0 Neut % (Auto) 60.6 Lymph % (Auto) 22.4 [place] % (Auto) 13.5 H Eos % (Auto) 2.9 Baso % (Auto) 0.6 Neut # (Auto) 3.2 Lymph # (Auto) 1.2 [place] # (Auto) 0.7 Eos # (Auto) 0.2 Baso # (Auto) 0.0 WBC Differential . Differential Comment Auto diff final POC Glucose 122 H 131 H 06/17/18 06/17/18 12:30 17:15 WBC RBC Hgb Hct MCV MCH MCHC RDW Plt Count MPV Neut % (Auto) Lymph % (Auto) [place] % (Auto) Eos % (Auto) Baso % (Auto) Neut # (Auto) Lymph # (Auto) [place] # (Auto) Eos # (Auto) Baso # (Auto) WBC Differential Differential Comment POC Glucose 126 H 103 Microbiology 06/14/18 13:25 Blood - Peripheral Aerobic Blood Culture - Preliminary No growth in 3 days 06/14/18 13:25 Blood - Peripheral Anaerobic Blood Culture - Preliminary No growth in 3 days 06/14/18 13:20 Blood - Peripheral Aerobic Blood Culture - Preliminary No growth in 3 days 06/14/18 13:20 Blood - Peripheral Anaerobic Blood Culture - Preliminary No growth in 3 days Assessment and Plan - Assessment and Plan 62yo F, POD#4 s/p L4-L5 decompression with instrumented fusion 1. PT for mobilization. Given patient's issues with pain, will order weave brace to help mobilize patient but she may be mobilized out of bed without the brace until it is fitted. 2. H&H stable. 3. Monitor HV output. Will remove after patient mobilizes with PT and output less than 40-50cc per shift 4. Plan for placement upon discharge, likely rehab/SNF on Tuesday 5. DVT ppx with mechanical SCDs and TEDs. No chemical anticoaguation. 6. Patient's previous slurred speech was referred to medical. Patient had workup which was negative for acute process.
[2018-06-18] MEDS: Propranolol 10 MG Tablet PO SCH ×2 (10:05→22:26)
[2018-06-18] MEDS: Multivitamin/Minerals Therapeutic Tablet PO SCH ×2 (10:06→22:26)
[2018-06-18] MEDS: Insulin NovoLOG Aspart Correctional Sugar Inj SQ SCH ×4 (10:06→22:26)
[2018-06-18] MEDS: Gabapentin 300 MG Capsule PO SCH ×3 (10:06→17:49)
[2018-06-18] MEDS: oxyCODONE/Acetaminophen 10/325 Tablet PO PRN ×2 (10:08→17:50)
--- NOTE | 2018-06-18 11:02 | P.PNOP ---
Subjective Interval history: Patient resting in bed in NAD. Patient reports continued pain to the low back. Patient more talkative and clear with speech. Physical Exam Vital signs: Vital Signs 06/17/18 12:00 06/17/18 16:00 06/17/18 16:58 Temperature 97.9 F 97.4 F L Pulse Rate 84 66 Respiratory Rate 18 16 Blood Pressure 101/53 L 82/43 L 91/54 L Pulse Oximetry 94 L 94 L 06/17/18 20:00 06/18/18 00:00 06/18/18 04:00 Temperature 97.9 F 98.1 F 98.5 F Pulse Rate 83 68 84 Respiratory Rate 16 16 14 Blood Pressure 105/57 L 88/63 L 119/57 L Pulse Oximetry 95 95 95 06/18/18 08:00 Temperature 98.2 F Pulse Rate 96 H Respiratory Rate 18 Blood Pressure 126/57 L Pulse Oximetry 96 Intake & Output 06/17/18 06/18/18 06/18/18 18:59 06:59 18:59 Intake Total 720 / 720 Balance 720 / 720 Weight 61.8 kg Intake: Oral 720 / 720 Other: # Voids 2 # Urine Diapers 2 Date of Last Bowel Movement 06/13/18 06/18/18 # Bowel Movements 1 1 Narrative: Patient's lumbar dressing is C/D/I. Patient moves both lower extremities and has good sensation to light touch bilaterally. Calves are soft and nontender. 2+ pedal pulses bilaterally. Localized ecchymosis to the low back. Speech is improved today. Patient more alert. - Urinary Catheter Management Indwelling Urethral Catheter Cath placed during this visit: yes, but has since been removed by the nurse Reason for continuing: Decision to DC catheter Insertion date: 06/13/18 Removal date: 06/14/18 Removal time: 05:19 1300 Cath placed during this visit: no Results - Labs CBC & Chem 7: 06/17/18 06:38 06/16/18 06:19 Laboratory Results - last 24 hr 06/17/18 06/17/18 06/17/18 12:30 17:15 20:51 POC Glucose 126 H 103 113 H 06/18/18 07:07 POC Glucose 102 Microbiology 06/14/18 13:25 Blood - Peripheral Aerobic Blood Culture - Preliminary No growth in 3 days 06/14/18 13:25 Blood - Peripheral Anaerobic Blood Culture - Preliminary No growth in 3 days 06/14/18 13:20 Blood - Peripheral Aerobic Blood Culture - Preliminary No growth in 3 days 06/14/18 13:20 Blood - Peripheral Anaerobic Blood Culture - Preliminary No growth in 3 days Assessment and Plan - Assessment and Plan 62yo F, POD#5 s/p L4-L5 decompression with instrumented fusion 1. PT for mobilization. Given patient's issues with pain, will order weave brace to help mobilize patient but she may be mobilized out of bed without the brace until it is fitted. 2. H&H stable. 3. Monitor HV output. Will remove after patient mobilizes with PT and output less than 40-50cc per shift 4. Plan for placement upon discharge, likely rehab/SNF on Tuesday 5. DVT ppx with mechanical SCDs and TEDs. No chemical anticoaguation. 6. Patient's previous slurred speech was referred to medical. Patient had workup which was negative for acute process.
--- NOTE | 2018-06-18 12:20 | P.PN ---
Subjective Interval history: Follow-up back pain status post laminectomy June 17, 2018-patient seen and examined, somewhat lethargic this a.m. and sitting by the door. Case discussed with REJI Hebert June 18, 2018-patient seen and examined, complaining of inadequate pain control. Physical Exam Vital signs: Vital Signs 06/17/18 16:00 06/17/18 16:58 06/17/18 20:00 Temperature 97.4 F L 97.9 F Pulse Rate 66 83 Respiratory Rate 16 16 Blood Pressure 82/43 L 91/54 L 105/57 L Pulse Oximetry 94 L 95 06/18/18 00:00 06/18/18 04:00 06/18/18 08:00 Temperature 98.1 F 98.5 F 98.2 F Pulse Rate 68 84 96 H Respiratory Rate 16 14 18 Blood Pressure 88/63 L 119/57 L 126/57 L Pulse Oximetry 95 95 96 06/18/18 12:00 Temperature 97.7 F Pulse Rate 94 H Respiratory Rate 18 Blood Pressure 118/64 Pulse Oximetry 97 Intake & Output 06/17/18 06/18/18 06/18/18 18:59 06:59 18:59 Intake Total 720 / 720 Balance 720 / 720 Weight 61.8 kg Intake: Oral 720 / 720 Other: # Voids 2 # Urine Diapers 2 Date of Last Bowel Movement 06/13/18 06/18/18 06/18/18 # Bowel Movements 1 1 Narrative: GENERAL: NAD SKIN: Warm and dry. HEAD: Normocephalic. EYES: No scleral icterus. No injection or drainage. NECK: Supple, trachea midline. No JVD or lymphadenopathy. CARDIOVASCULAR: Regular rate and rhythm without murmurs, gallops, or rubs. RESPIRATORY: Breath sounds equal bilaterally. No accessory muscle use. GASTROINTESTINAL: Abdomen soft, non-tender, nondistended. MUSCULOSKELETAL: No cyanosis, or edema. BACK: Nontender without obvious deformity. No CVA tenderness. - Urinary Catheter Management Indwelling Urethral Catheter Cath placed during this visit: yes, but has since been removed by the nurse Reason for continuing: Decision to DC catheter Insertion date: 06/13/18 Removal date: 06/14/18 Removal time: 05:19 1300 Cath placed during this visit: no Results - Labs CBC & Chem 7: 06/17/18 06:38 06/16/18 06:19 Laboratory Results - last 24 hr 06/17/18 06/17/18 06/17/18 12:30 17:15 20:51 POC Glucose 126 H 103 113 H 06/18/18 06/18/18 07:07 11:55 POC Glucose 102 110 Microbiology 06/14/18 13:25 Blood - Peripheral Aerobic Blood Culture - Preliminary No growth in 4 days 06/14/18 13:25 Blood - Peripheral Anaerobic Blood Culture - Preliminary No growth in 4 days 06/14/18 13:20 Blood - Peripheral Aerobic Blood Culture - Preliminary No growth in 4 days 06/14/18 13:20 Blood - Peripheral Anaerobic Blood Culture - Preliminary No growth in 4 days Assessment and Plan - Plan 62-year-old female with Uncontrolled chronic back pain felt medical management -L4-L5 laminectomy, facetectomy and foraminotomy,L4-L5 combined posterolateral and interbody fusion, and L4-L5 instrumentation with bilateral pedicle screws -Management per orthopedic surgeon -Continue pain management accordingly. -PT eval and treat Toxic encephalopathy-secondary to medication likely narcotics -Neurology consulted Tachycardia, likely due to pain and dehydration, improving -Start metoprolol if HR does not stay controlled Type 2 diabetes/hypertension -Home medication already restarted by primary team. On insulin sliding scale at low dose.
[2018-06-19] MEDS: Gabapentin 300 MG Capsule PO SCH ×3 (08:30→17:01)
[2018-06-19] MEDS: Multivitamin/Minerals Therapeutic Tablet PO SCH ×2 (08:30→21:43)
[2018-06-19] MEDS: Propranolol 10 MG Tablet PO SCH (08:31)
[2018-06-19] MEDS: Insulin NovoLOG Aspart Correctional Sugar Inj SQ SCH ×3 (08:31→17:01)
[2018-06-19] MEDS: oxyCODONE/Acetaminophen 10/325 Tablet PO PRN ×3 (08:39→21:43)
--- NOTE | 2018-06-19 13:51 | P.PNIM ---
Physical Exam Vital signs: Vital Signs 06/18/18 16:00 06/18/18 20:00 06/19/18 00:00 Temperature 97.8 F 97.9 F 98.3 F Pulse Rate 91 H 96 H 87 Respiratory Rate 18 16 16 Blood Pressure 111/53 L 108/60 110/53 L Pulse Oximetry 96 95 95 06/19/18 08:00 06/19/18 09:09 Temperature 97.7 F Pulse Rate 18 L Respiratory Rate 18 18 Blood Pressure 179/71 H Pulse Oximetry 987 H Intake & Output 06/18/18 06/19/18 06/19/18 18:59 06:59 18:59 Intake Total 550 / 550 720 / 720 Balance 550 / 550 720 / 720 Intake: Oral 550 / 550 720 / 720 Other: # Voids 5 2 1 Date of Last Bowel Movement 06/18/18 06/19/18 06/18/18 # Bowel Movements 2 1 1 - Urinary Catheter Management Indwelling Urethral Catheter Cath placed during this visit: yes, but has since been removed by the nurse Reason for continuing: Decision to DC catheter Insertion date: 06/13/18 Removal date: 06/14/18 Removal time: 05:19 1300 Cath placed during this visit: no Results - Labs CBC & Chem 7: 06/17/18 06:38 06/16/18 06:19 Laboratory Results - last 24 hr 06/18/18 06/18/18 06/19/18 17:20 20:57 08:30 POC Glucose 121 H 147 H 121 H 06/19/18 11:38 POC Glucose 118 H Microbiology 06/14/18 13:25 Blood - Peripheral Aerobic Blood Culture - Final No growth in 5 days 06/14/18 13:25 Blood - Peripheral Anaerobic Blood Culture - Final No growth in 5 days 06/14/18 13:20 Blood - Peripheral Aerobic Blood Culture - Final No growth in 5 days 06/14/18 13:20 Blood - Peripheral Anaerobic Blood Culture - Final No growth in 5 days
--- NOTE | 2018-06-19 14:10 | P.PNOP ---
Subjective Interval history: No acute events, significant improvement over weekend from last week Physical Exam Vital signs: Vital Signs 06/18/18 16:00 06/18/18 20:00 06/19/18 00:00 Temperature 97.8 F 97.9 F 98.3 F Pulse Rate 91 H 96 H 87 Respiratory Rate 18 16 16 Blood Pressure 111/53 L 108/60 110/53 L Pulse Oximetry 96 95 95 06/19/18 08:00 06/19/18 09:09 Temperature 97.7 F Pulse Rate 18 L Respiratory Rate 18 18 Blood Pressure 179/71 H Pulse Oximetry 987 H Intake & Output 06/18/18 06/19/18 06/19/18 18:59 06:59 18:59 Intake Total 550 / 550 720 / 720 Balance 550 / 550 720 / 720 Intake: Oral 550 / 550 720 / 720 Other: # Voids 5 2 1 Date of Last Bowel Movement 06/18/18 06/19/18 06/18/18 # Bowel Movements 2 1 1 Narrative: awake, alert, much clearer speech Bilateral lower extremities: Appear grossly intact throughout. Negative Homans. Brisk cap refill. - Urinary Catheter Management Indwelling Urethral Catheter Cath placed during this visit: yes, but has since been removed by the nurse Reason for continuing: Decision to DC catheter Insertion date: 06/13/18 Removal date: 06/14/18 Removal time: 05:19 1300 Cath placed during this visit: no Results - Labs CBC & Chem 7: 06/17/18 06:38 06/16/18 06:19 Laboratory Results - last 24 hr 06/18/18 06/18/18 06/19/18 17:20 20:57 08:30 POC Glucose 121 H 147 H 121 H 06/19/18 11:38 POC Glucose 118 H Microbiology 06/14/18 13:25 Blood - Peripheral Aerobic Blood Culture - Final No growth in 5 days 06/14/18 13:25 Blood - Peripheral Anaerobic Blood Culture - Final No growth in 5 days 06/14/18 13:20 Blood - Peripheral Aerobic Blood Culture - Final No growth in 5 days 06/14/18 13:20 Blood - Peripheral Anaerobic Blood Culture - Final No growth in 5 days Assessment and Plan - Assessment and Plan 62yo F, POD#6 s/p L4-L5 decompression with instrumented fusion 1. PT for mobilization. Given patient's issues with pain, will order weave brace to help mobilize patient but she may be mobilized out of bed without the brace until it is fitted. 2. H&H stable. 3. DVT ppx with mechanical SCDs and TEDs. No chemical anticoaguation. 4. Discharge planning - placement to SNF/rehab
--- NOTE | 2018-06-19 14:11 | P.PNIM ---
Subjective Interval history: Mrs. Austin was afebrile with intermittent HTN overnight (max SBP 179 this morning). Patient states that she is doing well today. She has been doing well post-operatively and has had improved mental status for several days. Patient does not report chest pain, shortness of breath, abdominal pain, or abnormal urination/bowel movements. Physical Exam Vital signs: Vital Signs 06/18/18 16:00 06/18/18 20:00 06/19/18 00:00 Temperature 97.8 F 97.9 F 98.3 F Pulse Rate 91 H 96 H 87 Respiratory Rate 18 16 16 Blood Pressure 111/53 L 108/60 110/53 L Pulse Oximetry 96 95 95 06/19/18 08:00 06/19/18 09:09 Temperature 97.7 F Pulse Rate 18 L Respiratory Rate 18 18 Blood Pressure 179/71 H Pulse Oximetry 987 H Intake & Output 06/18/18 06/19/18 06/19/18 18:59 06:59 18:59 Intake Total 550 / 550 720 / 720 Balance 550 / 550 720 / 720 Intake: Oral 550 / 550 720 / 720 Other: # Voids 5 2 1 Date of Last Bowel Movement 06/18/18 06/19/18 06/18/18 # Bowel Movements 2 1 1 Narrative: GENERAL: NAD SKIN: Warm and dry. Surgical dressing over lumbar spine clean HEAD: Normocephalic. EYES: EOM grossly I CARDIOVASCULAR: Regular rate and rhythm without murmurs. Normal perfusion RESPIRATORY: CTAB; normal rate GASTROINTESTINAL: Abdomen soft, non-tender, nondistended. MUSCULOSKELETAL: Calves symmetrical in diameter BACK: Nontender without obvious deformity. Surgical dressing in place Neuro: Awake and alert. Grossly normal CN. Grossly normal peripheral motor/ sensory function - Urinary Catheter Management Indwelling Urethral Catheter Cath placed during this visit: yes, but has since been removed by the nurse Reason for continuing: Decision to DC catheter Insertion date: 06/13/18 Removal date: 06/14/18 Removal time: 05:19 1300 Cath placed during this visit: no Results - Labs CBC & Chem 7: 06/17/18 06:38 06/16/18 06:19 Laboratory Results - last 24 hr 06/18/18 06/18/18 06/19/18 17:20 20:57 08:30 POC Glucose 121 H 147 H 121 H 06/19/18 11:38 POC Glucose 118 H Microbiology 06/14/18 13:25 Blood - Peripheral Aerobic Blood Culture - Final No growth in 5 days 06/14/18 13:25 Blood - Peripheral Anaerobic Blood Culture - Final No growth in 5 days 06/14/18 13:20 Blood - Peripheral Aerobic Blood Culture - Final No growth in 5 days 06/14/18 13:20 Blood - Peripheral Anaerobic Blood Culture - Final No growth in 5 days Assessment and Plan - Assessment (1) H/O laminectomy Code(s): Z98.890 - Other specified postprocedural states Status: Acute (2) H/O encephalopathy Code(s): Z86.69 - Personal history of other diseases of the nervous system and sense organs Status: Acute - Plan Mrs. Austin is a 62-year-old female with: Uncontrolled chronic back pain Impression: POD 6 s/p L4-L5 laminectomy, facetectomy and foraminotomy,L4-L5 combined posterolateral and interbody fusion, and L4-L5 instrumentation with bilateral pedicle screws -Management per orthopedic surgeon -Continue pain management accordingly. (Gabapentin, Flexeril, Percocet) -PT eval and treat -Continue DVT PPX with SCDs Toxic encephalopathy Impression: Likely secondary to medication likely narcotics. Symptoms resolved Head CT 06/16 negative for acute process -Continue to monitor neuro status Tachycardia, likely due to pain and dehydration, improving -Start metoprolol if HR does not stay controlled Type 2 diabetes/hypertension -Home medication already restarted by primary team. -insulin sliding scale at low dose HTN -Continue Enalapril -Continue BID Propranolol DVT PPX -SCD's
[2018-06-20] MEDS: Insulin NovoLOG Aspart Correctional Sugar Inj SQ SCH ×5 (00:55→20:27)
[2018-06-20] MEDS: Propranolol 10 MG Tablet PO SCH ×3 (00:55→20:30)
[2018-06-20] MEDS: oxyCODONE/Acetaminophen 10/325 Tablet PO PRN ×3 (05:04→17:09)
[2018-06-20] MEDS: Gabapentin 300 MG Capsule PO SCH ×4 (05:08→17:09)
[2018-06-20] MEDS: Multivitamin/Minerals Therapeutic Tablet PO SCH ×2 (08:34→20:29)
--- NOTE | 2018-06-20 10:42 | P.PNOP ---
Subjective Interval history: Doing well this morning. States her pain is very well controlled and denies any leg symptoms Physical Exam Vital signs: Vital Signs 06/19/18 12:00 06/19/18 15:28 06/19/18 20:00 Temperature 97.4 F L 98.0 F Pulse Rate 76 97 H Respiratory Rate 18 18 16 Blood Pressure 123/57 L 117/64 Pulse Oximetry 97 95 06/20/18 00:00 06/20/18 04:00 06/20/18 08:00 Temperature 98.1 F 98.0 F 97.7 F Pulse Rate 88 93 H 108 H Respiratory Rate 17 18 18 Blood Pressure 151/67 H 156/74 H 163/81 H Pulse Oximetry 96 96 95 Intake & Output 06/19/18 06/20/18 06/20/18 18:59 06:59 18:59 Intake Total 480 / 480 Balance 480 / 480 Weight 59.8 kg Intake: Oral 480 / 480 Other: # Voids 2 2 Date of Last Bowel Movement 06/18/18 06/19/18 06/20/18 # Bowel Movements 0 Narrative: Awake, alert, NAD Back: dressing in place BLE: 5/5 strength throughout. Sensation appears intact. BCR - Urinary Catheter Management Indwelling Urethral Catheter Cath placed during this visit: yes, but has since been removed by the nurse Reason for continuing: Decision to DC catheter Insertion date: 06/13/18 Removal date: 06/14/18 Removal time: 05:19 1300 Cath placed during this visit: no Results - Labs CBC & Chem 7: 06/17/18 06:38 06/16/18 06:19 Laboratory Results - last 24 hr 06/19/18 06/19/18 06/19/18 11:38 16:44 21:41 POC Glucose 118 H 103 169 H 06/20/18 08:33 POC Glucose 133 H Microbiology 06/14/18 13:25 Blood - Peripheral Aerobic Blood Culture - Final No growth in 5 days 06/14/18 13:25 Blood - Peripheral Anaerobic Blood Culture - Final No growth in 5 days 06/14/18 13:20 Blood - Peripheral Aerobic Blood Culture - Final No growth in 5 days 06/14/18 13:20 Blood - Peripheral Anaerobic Blood Culture - Final No growth in 5 days Assessment and Plan - Assessment and Plan 62yo F, POD#7 s/p L4-L5 decompression with instrumented fusion 1. PT for mobilization. Given patient's issues with pain, will order weave brace to help mobilize patient but she may be mobilized out of bed without the brace until it is fitted. 2. H&H stable. 3. DVT ppx with mechanical SCDs and TEDs. No chemical anticoaguation. 4. Discharge to rehab/SNF once bed available. Follow-up 2 weeks in office
--- NOTE | 2018-06-20 19:04 | P.PNIM ---
Subjective Interval history: Patient doing well overnight, reports improved pain. Patient is tolerating p.o. and with no concerns. Physical Exam Vital signs: Vital Signs 06/19/18 20:00 06/20/18 00:00 06/20/18 04:00 Temperature 98.0 F 98.1 F 98.0 F Pulse Rate 97 H 88 93 H Respiratory Rate 16 17 18 Blood Pressure 117/64 151/67 H 156/74 H Pulse Oximetry 95 96 96 06/20/18 08:00 06/20/18 11:39 06/20/18 12:00 Temperature 97.7 F 97.8 F Pulse Rate 108 H 74 Respiratory Rate 18 18 18 Blood Pressure 163/81 H 110/60 Pulse Oximetry 95 96 Intake & Output 06/19/18 06/20/18 06/20/18 18:59 06:59 18:59 Intake Total 480 / 480 480 / 480 Balance 480 / 480 480 / 480 Weight 59.8 kg Intake: Oral 480 / 480 480 / 480 Other: # Voids 2 2 3 Date of Last Bowel Movement 06/18/18 06/19/18 06/20/18 # Bowel Movements 0 Narrative: GENERAL: patient sitting comfortably in bed, no acute distress. SKIN: Warm and dry. HEAD: Normocephalic. EYES: No scleral icterus. No injection or drainage. NECK: Supple, trachea midline. No JVD or lymphadenopathy. CARDIOVASCULAR: Regular rate and rhythm without murmurs, gallops, or rubs. RESPIRATORY: Breath sounds equal bilaterally. No accessory muscle use. GASTROINTESTINAL: Abdomen soft, non-tender, nondistended. MUSCULOSKELETAL: No cyanosis, or edema. BACK: Nontender without obvious deformity. No CVA tenderness. Back brace in place. - Urinary Catheter Management Indwelling Urethral Catheter Cath placed during this visit: yes, but has since been removed by the nurse Reason for continuing: Decision to DC catheter Insertion date: 06/13/18 Removal date: 06/14/18 Removal time: 05:19 1300 Cath placed during this visit: no Results - Labs CBC & Chem 7: 06/17/18 06:38 06/16/18 06:19 Laboratory Results - last 24 hr 06/19/18 06/20/18 21:41 08:33 POC Glucose 169 H 133 H Assessment and Plan - Assessment (1) H/O laminectomy Code(s): Z98.890 - Other specified postprocedural states Status: Acute (2) H/O encephalopathy Code(s): Z86.69 - Personal history of other diseases of the nervous system and sense organs Status: Acute - Plan 62-year-old female admitted for chronic back pain status post L4-L5 laminectomy and instrumented fusion, postop day #6, per Ortho stable for discharge pending rehab, discharge orders already placed per them, HD#7 1. Uncontrolled chronic back pain s/p L4-L5 laminectomy, facetectomy and foraminotomy,L4-L5 combined posterolateral and interbody fusion, and L4-L5 instrumentation with bilateral pedicle screws -Management per orthopedic surgeon, cont. PT daily for mobilization, cont. weave brace, stable for D/C to [facility], orders placed prior to my evaluation of patient. 2. Type 2 diabetes: BS 133, 169, 103. Cont checking FBS only, cont. Metformin. 3. HTN: BP stable, continue Enalapril and Propranolol. 4. DVT PPX: per ortho, mechanical SCDs and TEDs. No chemical anticoaguation. 5. Anemia; acute bld loss, Hgb 10 from 8.6 s/p 2u pRBC's. Aymptomatic. 6. Discharge to rehab/SNF, should be this afternoon, Follow-up in 2 weeks with Ortho.
[2018-06-21] MEDS: oxyCODONE/Acetaminophen 10/325 Tablet PO PRN ×3 (00:25→12:47)
[2018-06-21] MEDS: Insulin NovoLOG Aspart Correctional Sugar Inj SQ SCH ×2 (08:15→12:57)
[2018-06-21] MEDS: Gabapentin 300 MG Capsule PO SCH ×2 (08:16→12:47)
[2018-06-21] MEDS: Multivitamin/Minerals Therapeutic Tablet PO SCH (08:17)
[2018-06-21] MEDS: Propranolol 10 MG Tablet PO SCH (08:17)
--- NOTE | 2018-06-21 10:12 | P.PN ---
Subjective Interval history: Patient seen and examined, no acute event overnight Taking p.o. without any completion of nausea and vomiting Afebrile Physical Exam Vital signs: Vital Signs 06/20/18 11:39 06/20/18 12:00 06/20/18 16:00 Temperature 97.8 F 97.9 F Pulse Rate 74 Respiratory Rate 18 18 18 Blood Pressure 110/60 114/54 L Pulse Oximetry 96 93 L 06/20/18 17:39 06/20/18 20:00 06/20/18 21:33 Temperature 97.6 F Pulse Rate 86 Respiratory Rate 18 16 18 Blood Pressure 119/56 L Pulse Oximetry 96 06/21/18 00:00 06/21/18 00:55 06/21/18 02:21 Temperature 98.1 F Pulse Rate 80 Respiratory Rate 17 17 19 Blood Pressure 131/58 L Pulse Oximetry 95 06/21/18 04:00 06/21/18 08:00 Temperature 98.2 F 98.2 F Pulse Rate 83 80 Respiratory Rate 17 14 Blood Pressure 136/60 120/59 L Pulse Oximetry 96 96 Intake & Output 06/20/18 06/21/18 06/21/18 18:59 06:59 18:59 Intake Total 480 / 480 Balance 480 / 480 Weight 61.6 kg Intake: Oral 480 / 480 Other: # Voids 3 3 Date of Last Bowel Movement 06/20/18 06/20/18 06/20/18 # Bowel Movements 1 Narrative: GENERAL: NAD. SKIN: Warm and dry. HEAD: Normocephalic. EYES: No scleral icterus. No injection or drainage. NECK: Supple, trachea midline. No JVD or lymphadenopathy. CARDIOVASCULAR: Regular rate and rhythm without murmurs, gallops, or rubs. RESPIRATORY: Breath sounds equal bilaterally. No accessory muscle use. GASTROINTESTINAL: Abdomen soft, non-tender, nondistended. MUSCULOSKELETAL: No cyanosis, or edema. BACK: Nontender without obvious deformity. No CVA tenderness. - Urinary Catheter Management Indwelling Urethral Catheter Cath placed during this visit: yes, but has since been removed by the nurse Reason for continuing: Decision to DC catheter Insertion date: 06/13/18 Removal date: 06/14/18 Removal time: 05:19 1300 Cath placed during this visit: no Results - Labs CBC & Chem 7: 06/17/18 06:38 06/16/18 06:19 Laboratory Results - last 24 hr 06/20/18 06/21/18 20:07 05:22 POC Glucose 109 Fasting Glucose 97 Assessment and Plan - Assessment (1) H/O laminectomy Code(s): Z98.890 - Other specified postprocedural states Status: Acute (2) H/O encephalopathy Code(s): Z86.69 - Personal history of other diseases of the nervous system and sense organs Status: Acute - Plan 62-year-old female with Uncontrolled chronic back pain felt medical management -L4-L5 laminectomy, facetectomy and foraminotomy,L4-L5 combined posterolateral and interbody fusion, and L4-L5 instrumentation with bilateral pedicle screws -Management per orthopedic surgeon -Continue pain management accordingly. -PT eval and treat Toxic encephalopathy-secondary to medication likely narcotics-resolved -Neurology consulted HTN: BP stable, continue Enalapril and Propranolol. Type 2 diabetes -Continue Metformin and insulin sliding scale at low dose. Discharge to SNF when bed is available
--- NOTE | 2018-06-21 12:43 | P.PNOP ---
Subjective Interval history: Resting currently. States she has minimal pain. Was able to ambulate down the borrero Physical Exam Vital signs: Vital Signs 06/20/18 16:00 06/20/18 17:39 06/20/18 20:00 Temperature 97.9 F 97.6 F Pulse Rate 86 Respiratory Rate 18 18 16 Blood Pressure 114/54 L 119/56 L Pulse Oximetry 93 L 96 06/20/18 21:33 06/21/18 00:00 06/21/18 00:55 Temperature 98.1 F Pulse Rate 80 Respiratory Rate 18 17 17 Blood Pressure 131/58 L Pulse Oximetry 95 06/21/18 02:21 06/21/18 04:00 06/21/18 08:00 Temperature 98.2 F 98.2 F Pulse Rate 83 80 Respiratory Rate 19 17 14 Blood Pressure 136/60 120/59 L Pulse Oximetry 96 96 Intake & Output 06/20/18 06/21/18 06/21/18 18:59 06:59 18:59 Intake Total 480 / 480 Balance 480 / 480 Weight 61.6 kg Intake: Oral 480 / 480 Other: # Voids 3 3 Date of Last Bowel Movement 06/20/18 06/20/18 06/20/18 # Bowel Movements 1 Narrative: awake, alert, no acute distress Bilateral lower extremities 5 out of 5 strength throughout. Sensation intact. Denies any radicular pain. Brisk cap refill. Negative Homans. - Urinary Catheter Management Indwelling Urethral Catheter Cath placed during this visit: yes, but has since been removed by the nurse Reason for continuing: Decision to DC catheter Insertion date: 06/13/18 Removal date: 06/14/18 Removal time: 05:19 1300 Cath placed during this visit: no Results - Labs CBC & Chem 7: 06/17/18 06:38 06/16/18 06:19 Laboratory Results - last 24 hr 06/20/18 06/21/18 20:07 05:22 POC Glucose 109 Fasting Glucose 97 Assessment and Plan - Assessment and Plan 62yo F, POD#8 s/p L4-L5 decompression with instrumented fusion 1. PT for mobilization. Given patient's issues with pain, will order weave brace to help mobilize patient but she may be mobilized out of bed without the brace until it is fitted. 2. H&H stable. 3. DVT ppx with mechanical SCDs and TEDs. No chemical anticoaguation. 4. Discharge to rehab/SNF once bed available. Follow-up 2 weeks in office
--- NOTE | 2018-06-21 12:55 | P.OP ---
Date of procedure: 06/13/18 Procedure: L4-L5 laminectomy, facetectomy and foraminotomy L4-L5 combined posterolateral and transforaminal interbody arthrodesis L4-L5 instrumentation with bilateral pedicle screws L4-L5 placement intervertebral cage Placement of local autograft Placement of allograft Implants: Depuy Anesthesia: GETA Surgeon: Vika Figueroa MD Estimated blood loss (mL): 1,100 Pathology: none sent Operation and Findings: Indications for procedure: Patient is a 62-year old female with several year history of low back pain with worsening right leg radiculopathy and associated weakness. Patient was found to have L4-5 spondylolisthesis with disc herniation and significant right-sided foraminal stenosis. Plan is for a posterior lumbar decompression with instrumented fusion. Risks, benefits, alternative treatment options were discussed with the patient. At this time the patient wished to proceed with the above-mentioned procedure. Description of procedure: Patient was brought back to the operating room where general anesthesia then ensued. Neuro monitoring leads were placed along with a Gusman catheter. Patient was then carefully positioned prone on the operating room table with all bony prominences well padded. Patient was then prepped and draped in standard sterile fashion. Preoperative antibiotics were given within 1 hour of incision. A timeout was performed to identify the correct patient, side, site and procedure to be performed. C-arm views were used to localize the site for incision and a central longitudinal incision was made directly overlying the L4-5 level. Sharp dissection was made through skin and subcutaneous tissue. The fascia was cleared and incised directly over the spinous processes. Dissection was then carried out over the posterior aspect of the spine including the spinous process, lamina, pars, facet joints and transverse processes at L4-L5. Attention was then turned towards pedicle screw placement. Pedicle screws were placed bilaterally at L4 and L5. Screws were placed under use of C-arm guidance. A ferryboat pilot hole was created with a bur followed by a pedicle probe. A ball-tipped probe was used to confirm interosseous positioning along with C-arm. This was subsequently tapped, probed again and then appropriate length screws were placed. AP and lateral radiographs demonstrated the screws appeared appropriately positioned. The screws were then stimulated, all a threshold greater than 20. Attention was then turned towards decompression. A central decompression was initially carried out with the use of a high-speed bur, rongeur and Kerrisons at L4 and L5. The left lateral recess was then decompressed by undercutting the medial aspect of the superior articular facet and removing all hypertrophic capsular ligamentous tissue. At this time the right L4-L5 facet was removed with the use of a high-speed bur and rongeur. This was completed with the use of Kerrisons with careful attention paid to protecting and decompressing the exiting L4 nerve root on the right. There were significant scar tissue around this right L4-5 facet and the traversing L5 nerve root. This made mobilizing the thecal sac very difficult to access the disc space. At this time, I decided to perform a left sided L4-5 facetectomy to allow access to the disc space. The left L4-5 facet was then removed with a high-speed bur and rongeur. The exiting L4 nerve root is identified along with the traversing L5 nerve root. The thecal sac was mobilized towards the right and hemostasis achieved with bipolar electrocautery and hemostatic agents. An annulotomy was performed at the L4-5 disc space and the disc removed with the use of pituitaries and curettes. The disc space was then subsequently shaved. Again, disc material was removed with the use of curettes and pituitaries. This was performed until all cartilaginous material was removed from the disc space and there was healthy bleeding bone. The disc space was thoroughly irrigated. Local autograft mixzed with Vivigen was then placed and packed into the anterior aspect of the disc space. A cage was then filled on the back table with local autograft mixed with Vivigen. This was then placed into the disc space and advanced to appropriate position on AP and lateral radiographs. Distraction was then released. At this time attention was turned to decompressing bilateral foramen. On both the right and left side was noted to be free of any compression and the exiting L4 nerve root was easily visualized. Premeasured and precut rods were then placed between L4-L5 screws bilaterally with set screws being placed and final tightened. X-ray showed all hardware appeared to be well positioned on both AP and lateral radiographs an small improvement in the spondylolisthesis. Copious irrigation was then performed. The transverse process at L4 and L5 were then decorticated with a bur and local autograft and Vivigen then placed in the posterolateral gutter. A deep drain was then placed through a lateral stab incision. Vancomycin powder was then placed into the wound. The fascia was then closed with #0 Vicryl suture. The subcutaneous tissue was closed with 2-0 Vicryl sutures and the skin closed with nylon. Sterile dressings were applied and patient was carefully transferred supine onto the hospital bed. Patient was then awoken from general anesthesia without complication. It should be noted that the patient remained hemodynamically stable throughout the entire procedure and that there were no adverse monitoring changes.
[2018-06-21 14:20] VITALS: BP 106/51; PULSE 72; TEMP 97.5; O2SAT 95
[2018-06-21 14:47] VITALS: RESP 18
--- NOTE | 2018-07-05 12:49 | P.DS ---
Date of admission: 06/13/18 08:54 Primary care physician: Paloma Primary Care Physician Attending physician on discharge: Vika Peña Brief History from admission: Patient underwent lumbar laminectomy with instrumented fusion. Postoperatively , patient was admitted to the orthopedic floor. She had significant delirium and difficulty with mobilization for the first several days. Patient was gradually mobilized as tolerated and progress to a normal diet. Patient's pain was controlled with oral and IV pain medications. Patient was then discharged to rehabilitation facility. DS: Diagnosis - Discharge Diagnosis (1) H/O laminectomy Status: Acute DS: Medications - Discharge Medications Prescriptions: oxycodone-acetaminophen 1 - 2 tab PO Q4-6H PRN #50 tab PRN Reason: Pain DS: Summary Hospital Course: Patient was admitted after undergoing bilateral laminectomy with instrument infusion. Postoperatively, patient struggled with delirium and mental status changes which delayed her mobilization. Patient was gradually mobilized as tolerated over several days and weaned to a normal diet as tolerated. Patient was doing well and discharged to rehabilitation facility. - Time Spent with Patient Total time spent providing and/or coordinating discharge services: Less than 30 minutes - Quality: VTE Deep Vein Thrombosis/Pulmonary Embolism Present on Admission: No Results Procedures completed during hospitalization: L4-L5 decompression with combined interbody and posterior lateral instrumented fusion - Impressions ITS Impressions Lumbar Spine X-Ray 06/13/18 00:00 CONCLUSION: Good position and alignment on this postoperative study. Head CT 06/16/18 00:00 CONCLUSION: 1. Negative for acute process . Discharge Plan - Discharge Disposition Patient Disposition: 03 Discharge to SNF - Discharge Condition Condition: Good - Discharge Order Discharge Orders: Discharge Order (Routine); Ordered 06/20/18 Ordered By: Vika Peña - Physicians Team Primary Care Provider: Primary Care Nico,Paloma Attending Provider: Vika Peña Other Providers: [employer] ; Estella Walls MD ; [facility] ; Elmo Henson MD - Rxs /Orders / Referrals /Forms Prescriptions: New oxycodone-acetaminophen 10-325 mg Tablet 1 - 2 tab PO Q4-6H PRN (Reason: Pain) Qty: 50 RF: 0 Continue ascorbic acid (vitamin C) 500 mg Tablet 500 mg PO DAILY cranberry 500 mg Capsule 500 mg PO DAILY cyclobenzaprine 10 mg Tablet 20 mg PO HS diphenhydramine HCl [Benadryl Allergy] 25 mg Tablet 25 mg PO BID docusate sodium [Stool Softener] 100 mg Tablet 100 mg PO DAILY enalapril maleate 2.5 mg Tablet 2.5 mg PO DAILY gabapentin 300 mg Capsule 300 mg PO TID metformin 500 mg Tablet 1,000 mg PO BID [id number] K [Adults Multivitamin] 18 mg iron-400 mcg-25 mcg Tablet 1 tab PO DAILY potassium chloride 10 mEq Tablet Extended Release 10 meq PO DAILY propranolol 60 mg Tablet 30 mg PO BID Discontinued oxycodone 10 mg Tablet 10 mg PO Q4-6H PRN (Reason: Pain) Referrals: Primary Care Paloma Walsh [Primary Care Provider] - See Instructions - Discharge Instructions Patient Printed Instructions: Laxative, Stool Softeners (By mouth), Laminectomy (DC), Narcotic Pain Management (DC), Surgical Site Infections (DC), How To Wash Your Hands (DC), Deep Vein Thrombosis Prevention (DC) Additional Instructions: FOLLOW UP WITH DR. PEÑA IN 2 WEEKS TAKE MEDICATIONS PRESCRIBED. IN CASE OF EMERGENCY CALL 911 OR RETURN TO [facility] - Post Discharge Care Plan Care Plan Goals: Your Health Problems: Goals to Promote Your Health: * To prevent worsening of your condition * To maintain your health at the optimal level Directions to Meet Your Goals: * Take your medications as prescribed * Follow your dietary instruction * Follow activity as directed * Keep your appointments as scheduled * Take your immunizations and boosters as scheduled * If your symptoms worsen call your PCP * If no PCP go to Urgent Care or Emergency Room Smoking is dangerous to your health. Avoid second hand smoke. You may reach the 24-hour crisis hotline for domestic abuse at .
== END 2018-06-21 15:01 ==
LOC: HSDI 08:54 → N06 20:33
PROVIDERS: ADMIT Orthopaedic Surgery Orthopaedic Surgery of the Spine; ATTEND Orthopaedic Surgery Orthopaedic Surgery of the Spine